=== PATIENT | female | born 1940 | race Caucasian/White ===

== ENCOUNTER 2020-09-07 13:29 | Outpatient (REF) | payer MEDICARE, SELFPAY | END 2020-09-07 13:30 | disposition home or self-care (01) | LOC: HO.HMGCLDS 13:29 | PROVIDERS: PCP Internal Medicine; Visit Provider Internal Medicine | DX: Z20.828 Contact with and (suspected) exposure to other viral communicable diseases (principal) | CPT/HCPCS: C9803; U0003 ==

== ENCOUNTER 2020-10-16 10:04 | Outpatient (REF) | payer MEDICARE, SELFPAY ==
[2020-10-16 11:25] LABS: Estimated Average Glucose 143 mg/dL; Hemoglobin A1c % 6.6 %
[2020-10-16 11:52] LABS: Anion Gap 16 (12-20); Blood Urea Nitrogen 40 mg/dL (9-16); Calcium 9.2 mg/dL (8.4-10.2); Carbon Dioxide 17 mmol/L (22-29); Chloride 113 mmol/L (96-108); Estimated Glomerular Filt Rate 34; Glucose Random 147 mg/dL (60-115); Sodium 141 mmol/L (135-145)
[2020-10-16 11:56] LABS: Creatinine Urine 57.08 mg/dL; Microalbum/Creatinine Ratio Ur 105.1 ug/mg cr
[2020-10-17 06:33] LABS: LDL Cholesterol Direct 94 mg/dL (<100)
== END 2020-10-16 10:05 | disposition home or self-care (01) ==
LOC: HO.HMGCLDS 10:04
PROVIDERS: PCP Internal Medicine; Visit Provider Internal Medicine
DX: E13.9 Other specified diabetes mellitus without complications (principal); N28.9 Disorder of kidney and ureter, unspecified; M19.90 Unspecified osteoarthritis, unspecified site
CPT/HCPCS: 80048; 82043; 83036; 83721

== ENCOUNTER 2021-02-12 10:58 | Outpatient (REF) | payer MEDICARE, SELFPAY ==
[2021-02-12 14:03] LABS: Hemoglobin 11.2 g/dl (12.0-16.0)
[2021-02-12 14:09] LABS: Estimated Average Glucose 131 mg/dL; Hemoglobin A1c % 6.2 %
[2021-02-12 14:31] LABS: Alanine Aminotransferase 12 U/L (0-31); Albumin Level 4.2 g/dL (3.5-5.0); Alkaline Phosphatase 70 U/L (39-117); Anion Gap 14 (12-20); Aspartate Amino Transferase 12 U/L (5-31); Bilirubin Total 0.5 mg/dL (0.0-1.0); Blood Urea Nitrogen 45 mg/dL (9-16); Calcium 9.1 mg/dL (8.4-10.2); Carbon Dioxide 17 mmol/L (22-29); Chloride 115 mmol/L (96-108); Estimated Glomerular Filt Rate 30; Glucose Random 131 mg/dL (60-115); Sodium 141 mmol/L (135-145); Total Protein 7.3 g/dL (6.5-8.0)
== END 2021-02-12 10:59 | disposition home or self-care (01) ==
LOC: HO.HMGCLDS 10:58
PROVIDERS: PCP Internal Medicine; Visit Provider Internal Medicine
DX: F41.1 Generalized anxiety disorder (principal); E13.9 Other specified diabetes mellitus without complications; I10 Essential (primary) hypertension; N28.9 Disorder of kidney and ureter, unspecified
CPT/HCPCS: 36415; 80053; 83036; 85014; 85018

== ENCOUNTER 2021-04-05 14:55 | Outpatient (REF) | payer MEDICARE, SELFPAY ==
--- NOTE | ~2021-04-05 | US_ITS ---
EXAMINATION: US VENOUS ULTRASOUND WITH DOPPLER LOWER EXTREMITY, RIGHT CLINICAL INFORMATION: Pain and right leg COMPARISON: None TECHNIQUE: Ultrasound of the deep veins is performed from the hip to the calf with compression sonography and color and pulse Doppler assessment. Spectral analysis with color-flow imaging is performed. FINDINGS: There is normal venous compression and respiratory variation and augmented flow. The visualized common femoral vein, superficial femoral vein, profunda femoral vein, popliteal vein, and the trifurcation region shows no evidence of deep venous thrombosis. There is no significant popliteal fossa cyst. If the patient's symptoms persist, followup ultrasound in 5 days 7 days might be of value to exclude proximal propagation from a non-visualized calf vein. US/US venous duplex LE RT IMPRESSION: No DVT demonstrated in the right lower extremity.
== END 2021-04-05 14:56 | disposition home or self-care (01) ==
LOC: HO.HMGCX 14:55
PROVIDERS: PCP Internal Medicine; Visit Provider Nurse Practitioner Family
DX: M79.604 Pain in right leg (principal)
CPT/HCPCS: 93971

== ENCOUNTER 2021-04-09 12:59 | Outpatient (REF) | payer MEDICARE, SELFPAY ==
--- NOTE | ~2021-04-09 | XR_ITS ---
EXAMINATION: XR HIP, RIGHT CLINICAL INFORMATION: Right hip pain. COMPARISON: Pelvic CT scan dated 12/10/2013. TECHNIQUE: Two views of the right hip. FINDINGS: Mild right hip degenerative joint changes are seen. There is no acute fracture or dislocation. The soft tissues are unremarkable. Coarse calcifications are again seen overlying the pelvis without significant change. XR/XR hip RT min 2V IMPRESSION: Mild right hip osteoarthritis. No acute abnormality.
== END 2021-04-09 13:00 | disposition home or self-care (01) ==
LOC: HO.HMGCX 12:59
PROVIDERS: PCP Internal Medicine; Visit Provider Internal Medicine
DX: M25.551 Pain in right hip (principal)
CPT/HCPCS: 73502

== ENCOUNTER 2021-04-22 08:15 | Outpatient (REF) | payer MEDICARE, SELFPAY ==
--- NOTE | ~2021-04-22 | XR_ITS ---
EXAMINATION: XR PELVIS CLINICAL INFORMATION: Pain COMPARISON: Right hip radiograph from 04/09/2021 TECHNIQUE: AP view of the pelvis. FINDINGS: No acute visible fracture or dislocation. Degenerative changes of the bilateral femoral acetabular joints with joint space narrowing and periarticular osteophyte formation. Degenerative changes along the pubic symphysis and inferior aspect of the right sacroiliac joints. Degenerative changes along the lumbosacral junction. Joint spaces and alignment are otherwise maintained. Visualized bowel gas is unremarkable. Coarse calcification within the mid pelvis measuring 3.1 cm likely represents a calcified uterine fibroid. Pelvic phleboliths are visualized. Soft tissues are unremarkable. XR/XR pelvis 1-2V IMPRESSION: 1. No acute visible fracture or dislocation. 2. Degenerative changes of the bilateral femoral acetabular joints.
== END 2021-04-22 08:16 | disposition home or self-care (01) ==
LOC: HO.HOSX 08:15
PROVIDERS: Visit Provider Orthopaedic Surgery
DX: M25.559 Pain in unspecified hip (principal)
CPT/HCPCS: 72170; 99202

== ENCOUNTER 2021-04-28 10:26 | Emergency (ER) | payer MEDICARE, SELFPAY ==
--- NOTE | ~2021-04-28 | NM_ITS ---
EXAMINATION: NM LUNG IMAGE PERFUSION CLINICAL INFORMATION: Elevated d-dimer. Chest pain. SOB. COMPARISON: Chest x-ray 04/28/2021 TECHNIQUE: Following intravenous administration of 35 mCi of 90 9M technetium and AA, imaging over both lungs are obtained multiple projections. No ventilation study was performed. FINDINGS: There is normal perfusion seen to all segments of both lungs without any segmental, subsegmental or nonsegmental defect. NM/NM pul perfusion IMPRESSION: Normal perfusion scan.
--- NOTE | ~2021-04-28 | XR_ITS ---
EXAMINATION: XR CHEST CLINICAL INFORMATION: Chest pain. 1 hour STAGE [employer] COMPARISON: Chest 12/10/2019 TECHNIQUE: Frontal view of the chest was obtained. FINDINGS: Both lungs are fairly well-expanded and clear acute process. Heart size and pulmonary vascularity is normal. No gross bony abnormality seen. XR/XR chest 1V IMPRESSION: Unremarkable chest exam.
[2021-04-28 10:34] VITALS: BP 166/64; BP 167/71; PULSE 85; PULSE 90; RESP 18; TEMP 36.7; O2SAT 97; O2SAT 98; BMI 31.6
--- NOTE | 2021-04-28 10:42 | ECG_ITS ---
Test Reason : CHEST PAIN Blood Pressure : / mmHG Vent. Rate : 083 BPM Atrial Rate : 083 BPM P-R Int : 224 ms QRS Dur : 082 ms QT Int : 394 ms P-R-T Axes : 057 -03 040 degrees QTc Int : 462 ms Sinus rhythm with 1st degree A-V block with Premature supraventricular complexes Otherwise normal ECG When compared with ECG of 12-JAN-2015 11:44, Premature supraventricular complexes are now Present MD interval has increased Referred By: Ciera Johnson Electronically Signed By:VANGIE OLIVARES MD
[2021-04-28 11:05] VITALS: BP 138/53; PULSE 70; RESP 19; TEMP 36.8; O2SAT 99
[2021-04-28 11:15] LABS: MANUAL DIFF FLAG NO
[2021-04-28 11:21] LABS: Basophils Percent Auto 0.4 % (0-2); Eosinophils Absolute Auto 0.2 X10*3/uL (0.0-0.4); Eosinophils Percent Auto 4.1 % (0-4); Hematocrit 30.8 % (37-47); Hemoglobin 9.7 g/dl (12.0-16.0); Imm Gran Abs Auto 0.02 X10*3/uL (0.00-0.03); Imm Gran Pct Auto 0.4 % (0.0-0.4); Lymphocytes Absolute Auto 1.4 X10*3/uL (1.2-4.9); Lymphocytes Percent Auto 27.5 % (20-40); Mean Corpuscular HGB Conc 31.5 g/dl (31.0-35.0); Mean Corpuscular Hemoglobin 33.6 pg (27.0-33.0); Mean Corpuscular Volume 106.6 fL (80-98); Mean Platelet Volume 9.5 fL (9.4-12.3); Monocytes Absolute Auto 0.5 X10*3/uL (0.1-1.2); Neutrophils Absolute Auto 2.8 X10*3/uL (2.0-8.3); Neutrophils Percent Auto 56.6 % (45-73); Platelet Count 190 X10*3/uL (160-400); Red Blood Count 2.89 X10*6/uL (4.20-5.50); White Blood Count 4.9 X10*3/uL (4.8-10.8)
[2021-04-28 11:34] LABS: COVID-19 Test Negative (Negative)
[2021-04-28 11:54] LABS: Prothrombin Time 12.1 SEC (10.8-13.0)
[2021-04-28 11:55] LABS: Magnesium 1.8 mg/dL (1.6-2.6)
[2021-04-28 11:58] LABS: Alanine Aminotransferase 11 U/L (0-31); Albumin Level 3.7 g/dL (3.5-5.0); Alkaline Phosphatase 67 U/L (39-117); Aspartate Amino Transferase 11 U/L (5-31); B Type Natriuretic Peptide 186 pg/mL (<100); Bilirubin Total 0.3 mg/dL (0.0-1.0); Blood Urea Nitrogen 40 mg/dL (9-16); Calcium 8.7 mg/dL (8.4-10.2); Estimated Glomerular Filt Rate 26; Glucose Random 148 mg/dL (60-115); Total Protein 6.1 g/dL (6.5-8.0)
[2021-04-28 12:07] LABS: Anion Gap 12 (12-20); Carbon Dioxide 19 mmol/L (22-29); Chloride 116 mmol/L (96-108); Potassium 5.1 mmol/L (3.3-5.1); Sodium 142 mmol/L (135-145)
--- NOTE | 2021-04-28 12:30 | ED_ITS ---
HPI - Chest Pain General Chief Complaint: Chest Pain Stated Complaint: CHEST PAIN X2DAYS Time Seen by Provider: 04/28/21 10:33 Source: patient Mode of arrival: ambulatory Limitations: no limitations History of Present Illness HPI narrative: 80-year-old female with a past medical history of diabetes type 2, central hypertension, chronic kidney disease stage 3 due to hypertension, hyperparathyroidism due to renal insufficiency, and anemia presenting to the ED with complaints of sudden onset of chest pain when she was having a coughing fit that started approximately 09:00 and lasted approximately 10 minutes then resolved then 20- 30 minutes after that she had a 2nd episode of right-sided chest pain that again lasted approximately 10 minutes. She reports associated dyspnea on exertion orthopnea. Reports that she was treated for bronchitis with a Z-Alvarez approximately 3 weeks ago and completed the antibiotics and reports she was feeling better up until today when she started coughing and felt like she had sputum in her chest/ throat therefore she went to a coughing fit and this is when the chest pain began. Patient denies any dizziness, headaches, changes in vision, nausea /vomiting, palpitations, abdominal pain, black or bloody stools, lower extremity edema, recent travel or sick contacts or any other symptoms complaints or concerns at this time. MD complaint: chest pain Pertinent past history: other ( See above) Onset (ago): minute(s) ( started at 09:00 prior to arrival) Timing of current episode: episodic and now resolved Prior episodes: No Onset: other ( while coughing) Pain location: right chest Pain radiation: none Severity: moderate Quality: aching Relieving factors: nothing Exacerbating factors: other ( coughing) Context: recent illness ( approximately 3 weeks ago see above) Associated symptoms: dyspnea and cough Treatment prior to arrival: none Risk Factors Coronary artery disease risk factors: diabetes and hypertension Thoracic aortic dissection risk factors: none Related Data On Oral Contraceptives: No Home Medications Medication Instructions Recorded Confirmed escitalopram oxalate 20 mg tablet 20 mg PO DAILY 10/16/20 04/09/21 lisinopril 5 mg tablet 5 mg PO DAILY 10/16/20 04/09/21 Previous Rx's Medication Instructions Recorded ondansetron HCl 4 mg tablet 4 mg PO Q8H PRN 30 Days #30 tab 01/05/21 albuterol sulfate 90 mcg/actuation 1 inh INHALATION QID PRN 30 Days 02/12/21 aerosol inhaler #18 g allopurinol 100 mg tablet 100 mg PO DAILY #90 tab 03/30/21 atenolol 25 mg tablet 25 mg PO DAILY #90 tab 03/30/21 azithromycin 500 mg tablet 500 mg PO DAILY 5 Days #5 tab 04/01/21 glipizide 5 mg tablet 5 mg PO BID #180 tab 04/01/21 oxycodone-acetaminophen 5 mg-325 1 tab PO BID PRN 15 Days #30 tab 04/14/21 mg tablet albuterol sulfate 0.63 mg INHALATION QID PRN #75 ml 04/28/21 codeine-guaifenesin [Guaifenesin 5 ml PO Q6H PRN #120 ml 04/28/21 AC] docusate sodium [Colace] 100 mg PO BID PRN #14 cap 04/28/21 doxycycline monohydrate 100 mg PO BID 10 Days #20 cap 04/28/21 ferrous sulfate 325 mg PO DAILY #30 tab 04/28/21 oxycodone 5 mg PO BID PRN #10 tab 04/28/21 sennosides [Chocolate Laxative] 7.5 mg PO DAILY 5 Days #3 tab 04/28/21 Allergies Allergy/AdvReac Type Severity Reaction Status Date / Time Penicillins [PCN] Allergy Mild RASH Verified 04/22/21 11:04 penicillin V Allergy Unknown not Verified 04/22/21 11:04 effective PCN Allergy Unknown ineffective Uncoded 04/22/21 11:04 Review of Systems Review of Systems: Constitutional : No Weight loss, No Fever, No Chills, No Night Sweats, No Fatigue, No Malaise ENT/Mouth : No Hearing loss, No Ear Pain, No Nasal Congestion, No Sinus Pain, No Hoarseness, No sore throat, No Rhinorrhea, No Swallowing Difficulty Eyes: No Eye Pain, No Swelling, No Redness, No Foreign Body, No Discharge, No Vi london Changes Cardiovascular : Positive Chest Pain, Positive SOB, Positive Dyspnea on Exertion, Positive Orthopnea, No Edema, No extremity swelling, No Palpitations Respiratory : Positive Cough, No Sputum, No Wheezing Gastrointestinal : No Nausea, No Vomiting, No Diarrhea, No abdominal Pain, No Hematochezia, No Melena Genitourinary : No irregular bleeding, No Dysuria, No Urinary Frequency, No Hematuria, No Urinary Incontinence, No Urgency, No Flank Pain, No Urinary Flow Changes, No Hesitancy Musculoskeletal : No joint pain, No Myalgias, No Joint Swelling Skin : No Skin Lesions, No rash Neuro : No Weakness, No Numbness, No Paresthesias, No Loss of Consciousness, No Dizziness, No Headache Psych : No Anxiety/Panic, No Depression, No SI/HI/AH/VH Heme/Lymph: No Bruising, No Bleeding,No Lymphadenopathy Endocrine : No Polyuria, No Polydipsia, No Temperature Intolerance Yes all other systems are reviewed and are negative FOR[facility]LY [facility] Past Medical History Attestation statement: The following information was validated with the patient. 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 Nephropathy Surgical History History of cholecystectomy History of hysterectomy History of left cataract surgery History of tonsillectomy Social History Social History Alcohol intake: current Alcohol intake frequency: does not drink Patient Tobacco Use Status: Never used Tobacco Smoked in Last 30 Days: No Use of substances other than those prescribed or required for medical reasons: No Advance Directives: Yes Advance Directives Information Provided: Yes Advance Directives on File: No Current occupational status: retired Physical Exam Vital Signs: Vital Signs: Last Vital Signs Temp 98.3 F 04/28/21 11:05 Pulse 70 04/28/21 11:05 Resp 19 04/28/21 11:05 BP 138/53 L 04/28/21 11:05 Pulse Ox 99 04/28/21 11:05 Body Mass Index 31.6 vital signs have been reviewed as normal and appeared to be correct. Blood pressure hypertensive 166/64. Heart rate normal. Respiration rate normal. Temperature normal. Oxygen saturation normal. Appearance: Alert. Oriented X3. No acute distress. Head: Normal external exam. Normocephalic. Atraumatic. Eyes: PERRLA. EOMI. Conjunctiva and sclera normal. Eyelids normal. ENT: Pharynx normal. Uvula midline. Moist mucous membranes. No trismus noted. No drooling noted. No muffled voice noted. Neck: Normal inspection. Neck supple. FROM. No adenopathy. Thyroid Normal. No meningeal signs. No neck mass noted. CVS: Normal heart rate and rhythm. Heart sound normal. Pulses normal throughout. No murmurs/rales/gallops. Respiratory: No respiratory distress. Painless inspiration. Breath sounds normal. No wheezes/rales/rhonchi noted. Chest nontender. No accessory muscle usage noted or decreased air movement noted. Abdomen: Soft and nontender. Bowel sounds normal in all 4 quadrants. No distention noted. No organomegaly noted. No visible injury noted. Back: Full range of motion noted. No rashes/lesion/induration/fluctuance or signs of infection noted. Skin: Skin warm and dry. Normal skin color. Normal skin turgor. No rashes/lesions/lacerations noted. Extremities: No lower extremity edema. Extremities exhibit normal range of motion. Extremities nontender. Neuro: Oriented X 3. No motor deficit. No sensory deficit. Reflexes normal. Normal steady gait. No focal neuro deficits noted. Vascular: + radial pulses/+ 2 distal pedal pulses/+2 dorsalis pedis b/l. Normal cap refill. No cyanosis noted to upper extremity nails and lower extremity toes nails. Course Course Course Narrative: 10:40am - 80-year-old female with a past medical history of diabetes type 2, central hypertension, chronic kidney disease stage 3 due to hypertension, hyperparathyroidism due to renal insufficiency, and anemia presenting to the ED with complaints of sudden onset of chest pain when she was having a coughing fit that started approximately 09:00 and lasted approximately 10 minutes then resolved then 20- 30 minutes after that she had a 2nd episode of right-sided chest pain that again lasted approximately 10 minutes. She reports associated dyspnea on exertion orthopnea. Plan: Labs, EKG, chest x-ray, COVID swab then re-evaluate. Reevaluation(s) Reevaluation #1: - Labs return in patient with anemia worse when compared to prior she reports that she stop taking her iron supplements and I performed a stool occult which was negative. Patient's D-dimer was 521 therefore she had a V/Q scan and was negative for PE. Patient has a baseline elevated BUN and creatinine similar compared to prior. She had negative delta troponin. UA within normal limits no evidence of UTI. COVID swab negative. Chest x-ray negative for pneumonia or any other acute processes. EKG sinus rhythm with first-degree AV block with premature supraventricular complexes with ventricular rate of 83 no acute ischemic changes were noted. - Therefore patient most likely bronchitis and anemia will DC home with antibiotics and symptomatic treatment along with instructions to follow-up with PCP/ and to return if any new or worsening symptoms. Patient understands agrees with this plan. Time: 15:58 MDM - Chest Pain Medical Records Data Attestation: I reviewed the patient's medical records. Lab Data Attestation: I reviewed the patient's lab results. Result diagrams: 04/28/21 11:03 04/28/21 11:04 Labs: Lab Results 04/28/21 04/28/21 04/28/21 Range/Units 11:03 11:04 11:04 WBC 4.9 (4.8-10.8) X10*3/uL RBC 2.89 L (4.20-5.50) X10*6/uL Hgb 9.7 L (12.0-16.0) g/dl Hct 30.8 L (37-47) % MCV 106.6 H (80-98) fL MCH 33.6 H (27.0-33.0) pg MCHC 31.5 (31.0-35.0) g/dl RDW 14.0 (11.0-16.0) % Plt Count 190 (160-400) X10*3/uL MPV 9.5 (9.4-12.3) fL Immature Gran % (Auto) 0.4 (0.0-0.4) % Neut % (Auto) 56.6 (45-73) % Lymph % (Auto) 27.5 (20-40) % [place] % (Auto) 11.0 (2-11) % Eos % (Auto) 4.1 H (0-4) % Baso % (Auto) 0.4 (0-2) % Lymph # (Auto) 1.4 (1.2-4.9) X10*3/uL [place] # (Auto) 0.5 (0.1-1.2) X10*3/uL Eos # (Auto) 0.2 (0.0-0.4) X10*3/uL Baso # (Auto) 0.0 (0.0-0.2) X10*3/uL Abs Immat Gran (auto) 0.02 (0.00-0.03) X10*3/uL Absolute Neuts (auto) 2.8 (2.0-8.3) X10*3/uL Absolute Nucleated RBC 0.000 (0.0-0.012) X10*3/uL Nucleated RBC % (auto) 0.0 (0.0-0.2) /100WBC PT (10.8-13.0) SEC INR (0.9-1.1) D-Dimer NG/ML Sodium 142 (135-145) mmol/L Potassium 5.1 (3.3-5.1) mmol/L Chloride 116 H (96-108) mmol/L Carbon Dioxide 19 L (22-29) mmol/L Anion Gap 12 (12-20) BUN 40 H (9-16) mg/dL Creatinine 1.84 H (0.5-1.4) mg/dL Estim Creat Clear Calc 25.0 Estimated GFR 26 Random Glucose 148 H (60-115) mg/dL Calcium 8.7 (8.4-10.2) mg/dL Magnesium 1.8 (1.6-2.6) mg/dL Total Bilirubin 0.3 (0.0-1.0) mg/dL AST 11 (5-31) U/L ALT 11 (0-31) U/L Alkaline Phosphatase 67 (39-117) U/L Troponin I High Sens (<3.5-17.0) ng/L B-Natriuretic Peptide (<100) pg/mL Total Protein 6.1 L (6.5-8.0) g/dL Albumin 3.7 (3.5-5.0) g/dL Urine Color Urine Appearance Urine pH (5.0-8.0) Ur Specific [place] (1.005-1.025) Urine Protein (NEG-TRACE) MG/DL Urine Glucose (UA) (NEG) MG/DL Urine Ketones (NEG) MG/DL Urine Blood (NEG) Urine Nitrite (NEG) Ur Leukocyte Esterase (NEG) Stool Occult Blood (NEGATIVE) COVID-19 (JIMMIE) (Negative) COVID-19 Clin Com 04/28/21 04/28/21 04/28/21 Range/Units 11:04 11:04 11:36 WBC (4.8-10.8) X10*3/uL RBC (4.20-5.50) X10*6/uL Hgb (12.0-16.0) g/dl Hct (37-47) % MCV (80-98) fL MCH (27.0-33.0) pg MCHC (31.0-35.0) g/dl RDW (11.0-16.0) % Plt Count (160-400) X10*3/uL MPV (9.4-12.3) fL Immature Gran % (Auto) (0.0-0.4) % Neut % (Auto) (45-73) % Lymph % (Auto) (20-40) % [place] % (Auto) (2-11) % Eos % (Auto) (0-4) % Baso % (Auto) (0-2) % Lymph # (Auto) (1.2-4.9) X10*3/uL [place] # (Auto) (0.1-1.2) X10*3/uL Eos # (Auto) (0.0-0.4) X10*3/uL Baso # (Auto) (0.0-0.2) X10*3/uL Abs Immat Gran (auto) (0.00-0.03) X10*3/uL Absolute Neuts (auto) (2.0-8.3) X10*3/uL Absolute Nucleated RBC (0.0-0.012) X10*3/uL Nucleated RBC % (auto) (0.0-0.2) /100WBC PT 12.1 (10.8-13.0) SEC INR 1.0 (0.9-1.1) D-Dimer 521 NG/ML Sodium (135-145) mmol/L Potassium (3.3-5.1) mmol/L Chloride (96-108) mmol/L Carbon Dioxide (22-29) mmol/L Anion Gap (12-20) BUN (9-16) mg/dL Creatinine (0.5-1.4) mg/dL Estim Creat Clear Calc Estimated GFR Random Glucose (60-115) mg/dL Calcium (8.4-10.2) mg/dL Magnesium (1.6-2.6) mg/dL Total Bilirubin (0.0-1.0) mg/dL AST (5-31) U/L ALT (0-31) U/L Alkaline Phosphatase (39-117) U/L Troponin I High Sens 6.0 (<3.5-17.0) ng/L B-Natriuretic Peptide 186 H (<100) pg/mL Total Protein (6.5-8.0) g/dL Albumin (3.5-5.0) g/dL Urine Color Urine Appearance Urine pH (5.0-8.0) Ur Specific [place] (1.005-1.025) Urine Protein (NEG-TRACE) MG/DL Urine Glucose (UA) (NEG) MG/DL Urine Ketones (NEG) MG/DL Urine Blood (NEG) Urine Nitrite (NEG) Ur Leukocyte Esterase (NEG) Stool Occult Blood (NEGATIVE) COVID-19 (JIMMIE) Negative (Negative) COVID-19 Clin Com See Note 04/28/21 04/28/21 04/28/21 Range/Units 12:49 14:28 14:35 WBC (4.8-10.8) X10*3/uL RBC (4.20-5.50) X10*6/uL Hgb (12.0-16.0) g/dl Hct (37-47) % MCV (80-98) fL MCH (27.0-33.0) pg MCHC (31.0-35.0) g/dl RDW (11.0-16.0) % Plt Count (160-400) X10*3/uL MPV (9.4-12.3) fL Immature Gran % (Auto) (0.0-0.4) % Neut % (Auto) (45-73) % Lymph % (Auto) (20-40) % [place] % (Auto) (2-11) % Eos % (Auto) (0-4) % Baso % (Auto) (0-2) % Lymph # (Auto) (1.2-4.9) X10*3/uL [place] # (Auto) (0.1-1.2) X10*3/uL Eos # (Auto) (0.0-0.4) X10*3/uL Baso # (Auto) (0.0-0.2) X10*3/uL Abs Immat Gran (auto) (0.00-0.03) X10*3/uL Absolute Neuts (auto) (2.0-8.3) X10*3/uL Absolute Nucleated RBC (0.0-0.012) X10*3/uL Nucleated RBC % (auto) (0.0-0.2) /100WBC PT (10.8-13.0) SEC INR (0.9-1.1) D-Dimer NG/ML Sodium (135-145) mmol/L Potassium (3.3-5.1) mmol/L Chloride (96-108) mmol/L Carbon Dioxide (22-29) mmol/L Anion Gap (12-20) BUN (9-16) mg/dL Creatinine (0.5-1.4) mg/dL Estim Creat Clear Calc Estimated GFR Random Glucose (60-115) mg/dL Calcium (8.4-10.2) mg/dL Magnesium (1.6-2.6) mg/dL Total Bilirubin (0.0-1.0) mg/dL AST (5-31) U/L ALT (0-31) U/L Alkaline Phosphatase (39-117) U/L Troponin I High Sens 6.9 (<3.5-17.0) ng/L B-Natriuretic Peptide (<100) pg/mL Total Protein (6.5-8.0) g/dL Albumin (3.5-5.0) g/dL Urine Color YELLOW Urine Appearance CLEAR Urine pH 6.0 (5.0-8.0) Ur Specific [place] <= 1.005 (1.005-1.025) Urine Protein NEG (NEG-TRACE) MG/DL Urine Glucose (UA) NEG (NEG) MG/DL Urine Ketones NEG (NEG) MG/DL Urine Blood NEG (NEG) Urine Nitrite NEG (NEG) Ur Leukocyte Esterase NEG (NEG) Stool Occult Blood NEGATIVE (NEGATIVE) COVID-19 (JIMMIE) (Negative) COVID-19 Clin Com Imaging Data Chest x-ray: Attestation: I personally reviewed and interpreted this imaging study as follows: Radiologist's impression: FINDINGS: Both lungs are fairly well-expanded and clear acute process. Heart size and pulmonary vascularity is normal. No gross bony abnormality seen. XR/XR chest 1V IMPRESSION: Unremarkable chest exam. V/Q scan: Attestation: I personally reviewed and interpreted this imaging study as follows: Radiologist's impression: FINDINGS: There is normal perfusion seen to all segments of both lungs without any segmental, subsegmental or nonsegmental defect. NM/NM pul perfusion IMPRESSION: Normal perfusion scan. ECG Data ECG #1: Attestation: I personally reviewed and interpreted this ECG as follows: ECG interpretation date: 04/28/21 ECG interpretation time: 10:48 Interpretation: Sinus rhythm with first-degree AV block with premature supraventricular complexes with a ventricular rate of 83 no acute ischemic changes are noted. Similar compared to prior EKG 01/12/2015. Critical Care Time Critical Care Time Critical Care Time: Yes Total Critical Care Time: 60 Attestation: I personally attest to this time spent taking care of the patient Discharge Plan Discharge Clinical Impression: Bronchitis, Anemia Patient Disposition: Home, Self-Care Instructions: Acute Bronchitis (ED), Anemia (ED) Prescriptions: New docusate sodium [Colace] 100 mg capsule 100 mg PO BID PRN (Reason: Constipation) Qty: 14 RF: 0 albuterol sulfate 0.63 mg/3 mL solution for nebulization 0.63 mg inhalation QID PRN (Reason: shortness of breath or wheezing) Qty: 75 RF: 0 Chocolate Laxative 15 mg tablet,chewable 7.5 mg PO DAILY 5 Days Qty: 3 RF: 0 doxycycline monohydrate 100 mg capsule 100 mg PO BID 10 Days Qty: 20 RF: 0 codeine-guaifenesin [Guaifenesin AC] 10-100 mg/5 mL liquid 5 ml PO Q6H PRN (Reason: cold symptoms) Qty: 120 RF: 0 oxycodone 5 mg tablet 5 mg PO BID PRN (Reason: pain) Qty: 10 RF: 0 ferrous sulfate 325 mg (65 mg iron) tablet 325 mg PO DAILY Qty: 30 RF: 0 No Action ondansetron HCl [Zofran] 4 mg tablet 4 mg PO Q8H PRN (Reason: nausea and vomiting) 30 Days Qty: 30 RF: 0 atenolol 25 mg tablet 25 mg PO DAILY Qty: 90 RF: 0 allopurinol 100 mg tablet 100 mg PO DAILY Qty: 90 RF: 0 glipizide 5 mg tablet 5 mg PO BID Qty: 180 RF: 1 oxycodone-acetaminophen [Percocet] 5-325 mg tablet 1 tab PO BID PRN (Reason: pain) 15 Days Qty: 30 RF: 0 escitalopram oxalate 20 mg tablet 20 mg PO DAILY RF: 0 lisinopril 5 mg tablet 5 mg PO DAILY RF: 0 albuterol sulfate [ProAir HFA] 90 mcg/actuation HFA aerosol inhaler 1 inh inhalation QID PRN (Reason: shortness of breath or wheezing) 30 Days Qty: 18 RF: 2 azithromycin 500 mg tablet 500 mg PO DAILY 5 Days Qty: 5 RF: 0 Referrals: León Cnanon MD [Primary Care Provider] - 2 days Print Language: [place]
[2021-04-28 12:58] LABS: Glucose Urine UA NEG (NEG); Leukocyte Esterase Urine NEG (NEG); Nitrite Urine NEG (NEG); Specific Gravity - Urine <= 1.005 (1.005-1.025); Urine Blood NEG (NEG); Urine Ketones NEG (NEG); Urine Protein NEG (NEG-TRACE)
[2021-04-28 13:00] LABS: D Dimer 521 NG/ML
[2021-04-28 13:00] LABS: Appearance Urine CLEAR; Color Urine YELLOW
[2021-04-28 14:41] LABS: OBS Int Ctl Valid YES; OBS1 NEGATIVE (NEGATIVE)
[2021-04-28 15:17] LABS: Troponin-I High Sensitivity 6.9 ng/L (<3.5-17.0)
[2021-04-28 15:49] VITALS: BP 147/68; PULSE 61; RESP 14; TEMP 36.7; O2SAT 97
== END 2021-04-28 16:23 | disposition home or self-care (01) ==
PROVIDERS: Physician Assistant Medical; Emergency Provider Emergency Medicine; PCP Internal Medicine
DX: J40 Bronchitis, not specified as acute or chronic (principal); D64.9 Anemia, unspecified; R07.9 Chest pain, unspecified; R06.02 Shortness of breath; R06.01 Orthopnea; Z20.822 Contact with and (suspected) exposure to COVID-19; E13.22 Other specified diabetes mellitus with diabetic chronic kidney disease; I12.9 Hypertensive chronic kidney disease with stage 1 through stage 4 chronic kidney disease, or unspecified chronic kidney disease; N18.30 Chronic kidney disease, stage 3 unspecified; Z79.84 Long term (current) use of oral hypoglycemic drugs; Z79.899 Other long term (current) drug therapy
CPT/HCPCS: 36415; 71045; 78580; 80053; 81003; 82272; 83735; 83880; 84484; 85025; 85379; 85610; 87635; 93005; 99285; 99291; A9540

== ENCOUNTER 2021-06-07 09:37 | Outpatient (REF) | payer MEDICARE, OTHER, SELFPAY ==
[2021-06-07 11:17] LABS: MANUAL DIFF FLAG NO
[2021-06-07 11:32] LABS: Basophils Percent Auto 0.6 % (0-2); Eosinophils Absolute Auto 0.2 X10*3/uL (0.0-0.4); Eosinophils Percent Auto 3.4 % (0-4); Hematocrit 32.8 % (37-47); Hemoglobin 10.1 g/dl (12.0-16.0); Imm Gran Abs Auto 0.03 X10*3/uL (0.00-0.03); Imm Gran Pct Auto 0.6 % (0.0-0.4); Lymphocytes Absolute Auto 1.9 X10*3/uL (1.2-4.9); Lymphocytes Percent Auto 35.6 % (20-40); Mean Corpuscular HGB Conc 30.8 g/dl (31.0-35.0); Mean Corpuscular Hemoglobin 32.9 pg (27.0-33.0); Mean Corpuscular Volume 106.8 fL (80-98); Mean Platelet Volume 9.9 fL (9.4-12.3); Monocytes Absolute Auto 0.5 X10*3/uL (0.1-1.2); Monocytes Percent Auto 9.8 % (2-11); Neutrophils Absolute Auto 2.7 X10*3/uL (2.0-8.3); Platelet Count 266 X10*3/uL (160-400); Red Blood Count 3.07 X10*6/uL (4.20-5.50); Red Cell Distribution Width 13.5 % (11.0-16.0); White Blood Count 5.3 X10*3/uL (4.8-10.8)
[2021-06-07 11:35] LABS: Estimated Average Glucose 140 mg/dL; Hemoglobin A1c % 6.5 %
[2021-06-07 12:31] LABS: Alanine Aminotransferase 10 U/L (0-31); Albumin Level 3.9 g/dL (3.5-5.0); Alkaline Phosphatase 62 U/L (39-117); Anion Gap 14 (12-20); Aspartate Amino Transferase 11 U/L (5-31); Bilirubin Total 0.2 mg/dL (0.0-1.0); Blood Urea Nitrogen 43 mg/dL (9-16); Calcium 9.2 mg/dL (8.4-10.2); Carbon Dioxide 20 mmol/L (22-29); Chloride 116 mmol/L (96-108); Estimated Glomerular Filt Rate 31; Glucose Random 140 mg/dL (60-115); Potassium 5.5 mmol/L (3.3-5.1); Sodium 144 mmol/L (135-145); Total Protein 6.6 g/dL (6.5-8.0)
== END 2021-06-07 09:38 | disposition home or self-care (01) ==
LOC: HO.HMGCLDS 09:37
PROVIDERS: PCP Internal Medicine; Visit Provider Internal Medicine
DX: Z00.01 Encounter for general adult medical examination with abnormal findings (principal); E13.9 Other specified diabetes mellitus without complications; F41.1 Generalized anxiety disorder; I10 Essential (primary) hypertension; N28.9 Disorder of kidney and ureter, unspecified
CPT/HCPCS: 36415; 80053; 83036; 85025

== ENCOUNTER 2021-06-16 11:00 | Outpatient (RCR) | payer MEDICARE, OTHER, SELFPAY ==
--- NOTE | 2021-05-11 13:32 | MHC.PT.EP ---
[facility] [place] Office [place] [facility] [place] Office [address] Elmer Haynes [address] [phone] F: [phone] F: [phone] F: [phone] F: [phone] Physical Therapy Plan of Care Date of Evaluation: Date of Surgery: none Diagnosis: right hip pain Assessment: The patient arrived reporting right hip pain since falling 3 weeks ago. X-rays negative. Pt does not seem to have a clear directional preference for her lumbar spine. Pt had a sacral torsion and an innominant. Both were addressed with MET. However, pt is limited with her mobility due to pain. Most therapeutic benefit noted with gentle PA mobs on right sacral border. Pt given pelvic stability exercises to stabilize once we mobilized her sacrum. Pt has excellent rehab potential. Pt also reports total urinary incontinence at times which I believe could improve with pelvic floor PT as well including education on PF activation, and lifestyle changes, and improved bladder habits. Frequency and Duration: The patient will be seen 2x/week x 4 weeks. Short Term Goals: 1. The patient to be able to negotiate community obstacles such as curbs, ramps and open spaces without LOB for 100 feet. 2. Pt to have pain free bed mobility. 3. Pt to return to all community obstacles and walk community distances without pain. Half-Way Goals: 1. Pt to have pain free bed mobility. 2. Pt to return to all community obstacles and walk community distances without pain Treatment Plan: Modalities to reduce pain, spasms and effusion. Manual therapy to restore motion and function. Therapeutic exercise to improve strength and flexibility. Neuromuscular re-education for posture and balance. Therapeutic activities to return to functional activities of daily living. Electronically signed by: Ariella Munoz PT DPT Please sign and return to therapist. Thank you for your referral.
== END 2021-06-30 08:00 | disposition home or self-care (01) ==
LOC: HO.PT 11:00
PROVIDERS: PCP Internal Medicine; Visit Provider Orthopaedic Surgery
DX: M25.551 Pain in right hip (principal)
CPT/HCPCS: 97110; 97112; 97140; 97162; 97530

== ENCOUNTER 2021-08-13 08:44 | Outpatient (REF) | payer MEDICARE, OTHER, SELFPAY ==
--- NOTE | ~2021-08-13 | XR_ITS ---
EXAMINATION: XR LUMBOSACRAL SPINE CLINICAL INFORMATION: Radiculopathy. COMPARISON: None. TECHNIQUE: 3 views of the lumbosacral spine. FINDINGS: Degenerative changes are present in the lumbosacral spine predominantly from L3 through S1. There is disc space narrowing at L3-L4 and L4-L5. There is grade 1 anterolisthesis of L4 upon L5. Marked disc space narrowing, sclerosis and osteophytes are present at L5-S1. Calcified uterine fibroids are present. No bony destructive lesions or fractures seen. XR/XR lumbar spine 2-3V IMPRESSION: Degenerative changes predominantly from L3 through S1 with grade 1 anterolisthesis L4 upon L5.
== END 2021-08-13 08:45 | disposition home or self-care (01) ==
LOC: HO.HMGCX 08:44
PROVIDERS: PCP Internal Medicine; Visit Provider Internal Medicine
DX: M54.16 Radiculopathy, lumbar region (principal)
CPT/HCPCS: 72100

== ENCOUNTER 2021-09-07 09:10 | Outpatient (REF) | payer MEDICARE, OTHER, SELFPAY ==
[2021-09-07 11:48] LABS: MANUAL DIFF FLAG NO
[2021-09-07 12:00] LABS: Basophils Percent Auto 0.3 % (0-2); Eosinophils Absolute Auto 0.1 X10*3/uL (0.0-0.4); Eosinophils Percent Auto 1.7 % (0-4); Hematocrit 33.2 % (37.0-47.0); Hemoglobin 10.4 g/dl (12.0-16.0); Imm Gran Abs Auto 0.02 X10*3/uL (0.00-0.03); Imm Gran Pct Auto 0.3 % (0.0-0.4); Lymphocytes Absolute Auto 2.3 X10*3/uL (1.2-4.9); Lymphocytes Percent Auto 32.9 % (20-40); Mean Corpuscular HGB Conc 31.3 g/dl (31.0-35.0); Mean Corpuscular Hemoglobin 32.3 pg (27.0-33.0); Mean Corpuscular Volume 103.1 fL (80.0-98.0); Mean Platelet Volume 9.5 fL (9.4-12.3); Monocytes Absolute Auto 0.7 X10*3/uL (0.1-1.2); Monocytes Percent Auto 9.8 % (2-11); Neutrophils Absolute Auto 3.8 x10*3/uL (2.0-8.3); Platelet Count 227 X10*3/uL (160-400); Red Blood Count 3.22 X10*6/uL (4.20-5.50); Red Cell Distribution Width 14.1 % (11.0-16.0); White Blood Count 6.9 X10*3/uL (4.8-10.8)
[2021-09-07 12:35] LABS: Anion Gap 9 (12-20); Blood Urea Nitrogen 32 mg/dL (9-16); Calcium 8.9 mg/dL (8.4-10.2); Carbon Dioxide 22 mmol/L (22-29); Chloride 114 mmol/L (96-108); Estimated Glomerular Filt Rate 34; Glucose Random 140 mg/dL (60-115); Potassium 5.1 mmol/L (3.3-5.1); Sodium 140 mmol/L (135-145)
== END 2021-09-07 09:11 | disposition home or self-care (01) ==
LOC: HO.HMGCLDS 09:10
PROVIDERS: PCP Internal Medicine; Visit Provider Internal Medicine
DX: N18.30 Chronic kidney disease, stage 3 unspecified (principal); N25.81 Secondary hyperparathyroidism of renal origin
CPT/HCPCS: 36415; 80048; 85025

== ENCOUNTER → 2021-09-13 13:47 | Outpatient (BNVA) | payer MEDICARE, OTHER, SELFPAY | PROVIDERS: PCP Internal Medicine; Visit Provider Anesthesiology | DX: M47.27 Other spondylosis with radiculopathy, lumbosacral region (principal) | CPT/HCPCS: 99202 ==

== ENCOUNTER 2021-09-16 09:48 | Outpatient (REF) | payer MEDICARE, OTHER, SELFPAY ==
--- NOTE | ~2021-09-16 | MR_ITS ---
EXAMINATION: MR LUMBAR SPINE WITHOUT CONTRAST CLINICAL INFORMATION: Radiculopathy, lumbar region. History of trauma. COMPARISON: Plain films of the lumbar spine 08/13/2021. TECHNIQUE: MRI of the lumbar spine was obtained using routine sequences without contrast. FINDINGS: VERTEBRAL BODIES AND PARASPINAL STRUCTURES: There is a 5 mm grade 1 anterolisthesis of L4 on L5. There is narrowing of intervertebral disc height at L4-L5 and L5-S1. There is disc desiccation throughout the lumbar spine. There are degenerative endplate contour changes at multiple levels. There are edematous endplate signal changes at L4-L5. Mixed edematous and fatty endplate signal changes are seen toward the right at L5-S1. Vertebral body heights are maintained and no fractures are demonstrated. Overall, marrow signal is homogenous. There is a partially visualized cyst toward the lower pole of the right kidney. CONUS MEDULLARIS AND CAUDA EQUINA: Normal, terminating at the level of T12-L1. The lower thoracic spinal cord appears normal. The cauda equina nerve roots and filum terminale appear normal. SPINAL LEVELS: L1-L2: There is mild bilateral facet arthropathy. Disc contour is normal. There is no central stenosis or foraminal narrowing. L2-L3: There is mild to moderate bilateral facet arthropathy with ligamenta flava hypertrophy and small facet joint effusions. There is a diffuse disc bulge with mild flattening of the ventral thecal sac but there is no central stenosis. There is no foraminal nerve root impingement. L3-L4: There is moderate to severe bilateral facet arthropathy. There is a broad-based posterior disc protrusion extending into the neural foramina bilaterally with impingement on the exiting L3 nerve roots. There is also an extruded disc extending cephalad into the lateral recess of L3 on the left with impingement on the traversing left L3 nerve root. There is narrowing of the left subarticular recess with mild impingement on the traversing left L4 nerve root. There is distortion of the dorsal thecal sac from epidural lipomatosis. There is mild central stenosis. L4-L5: There is markedly severe bilateral facet arthropathy with ligamenta flava hypertrophy and facet joint effusions. There is unroofing of the disc as a result of the anterolisthesis, and there are bilateral foraminal disc protrusions with mild impingement on the exiting L4 nerve roots. There is a large extruded disc component extending cephalad on the right into the right lateral recess of L4 with severe mass effect on the traversing right L4 nerve root. There is marked narrowing of the bilateral subarticular recesses with impingement traversing L5 nerve roots bilaterally. Epidural lipomatosis distorts the dorsal thecal sac and there is moderate to severe central stenosis. L5-S1: There is moderate to severe bilateral facet arthropathy. There is a posterior disc protrusion with an annular fissure which is most prominent centrally and to the right of midline and there is distortion of the ventral thecal sac. There is impingement on the traversing S1 nerve roots bilaterally, more prominently on the right. There is an inferior foraminal disc protrusion on the right, with impingement on the exiting right L5 nerve root. There is mild central stenosis. MR/MR lumbar spine wo con IMPRESSION: 1. At L4-L5 there is markedly severe facet arthropathy. There is a large extruded disc component extending cephalad on the right into the right lateral recess of L4 with severe mass effect on the traversing right L4 nerve root. There is marked narrowing of the subarticular recesses with impingement traversing L5 nerve roots, and there is moderate to severe central stenosis. 2. At L3-L4 there is facet arthropathy and there is a broad-based posterior disc protrusion extending into the neural foramina. An extruded disc component extends cephalad into the lateral recess of L3 on the left, and impinges on the traversing left L3 nerve root. There is narrowing of the left subarticular recess and there is impingement on the traversing left L4 nerve root. There is mild central stenosis. 3. At L5-S1 there is a posterior disc protrusion with impingement on the traversing S1 nerve roots, more prominently on the right. There is a foraminal disc protrusion on the right impinging on the exiting right L5 nerve root. There is mild central stenosis.
== END 2021-09-16 09:49 | disposition home or self-care (01) ==
LOC: HO.MRI 09:48
PROVIDERS: Visit Provider Internal Medicine
DX: M54.16 Radiculopathy, lumbar region (principal); R20.2 Paresthesia of skin; R29.898 Other symptoms and signs involving the musculoskeletal system
CPT/HCPCS: 72148

== ENCOUNTER → 2021-10-18 16:48 | Outpatient (BNVA) | payer MEDICARE, OTHER, SELFPAY | PROVIDERS: PCP Internal Medicine; Visit Provider Anesthesiology | DX: M47.27 Other spondylosis with radiculopathy, lumbosacral region (principal); R29.898 Other symptoms and signs involving the musculoskeletal system; R20.2 Paresthesia of skin | CPT/HCPCS: 99212 ==

== ENCOUNTER → 2022-03-22 12:40 | Outpatient (BNVA) | payer MEDICARE, SELFPAY | PROVIDERS: PCP Internal Medicine; Referring Provider Internal Medicine; Visit Provider Internal Medicine | DX: I35.0 Nonrheumatic aortic (valve) stenosis (principal) | CPT/HCPCS: 93005; 99202 ==

== ENCOUNTER → 2022-03-30 14:55 | Outpatient (REF) | payer MEDICARE, OTHER, SELFPAY ==
--- NOTE | 2022-03-30 14:57 | CA_ITS ---
Transthoracic Echocardiogram Patient (Last, First, Middle): Sherry Santoyo, Gender: Female Date of : 1940 Age: 81 Procedure Date: 03/30/2022 Procedure Type: Transthoracic Echocardiogram Location: OP Height: 162.56 cm Weight: 82.56 kg BSA: 1.88 m2 Heart Rate: bpm BP: 130 / 75 mmHg Public Area Attendant: AFUA Zheng MD: Casey Richardson MD Survey Project Manager: London Hsu MD Symptoms: I35.0 - Nonrheumatic aortic (valve) stenosis Study Quality: Fair ECG Rhythm: Sinus Conclusions: - 1. Normal LV systolic function with impaired relaxation filling pattern 2. Mildly dilated left atrium 3. Moderate to severe aortic stenosis, more likely moderate 4. Normal RV systolic pressure 5. No gross pericardial effusion Findings Left Ventricle Normal left ventricular size, thickness, and systolic function. The visually estimated ejection fraction is between 55-60%. Spectral Doppler is indicative of an impaired relaxation filling pattern. Elevated filling pressures. E/E prime ratio is >15, consistent with elevated filling pressures. Right Ventricle Normal right ventricular cavity size and systolic function. Atria The left atrium is mildly dilated. There is lipomatous hypertrophy of the interatrial septum. There is no evidence of interatrial shunt. The right atrium is likely dilated. Aortic Valve There is mild calcification of the aortic valve. There is moderate thickening of the aortic valve. There is moderate to severe aortic valve stenosis. The mean gradient is 27 mmHg. The aortic valve area is 1.00 cm2. There is mild aortic valve regurgitation. Dimensionless index it at 0.28, more consistent with moderate aortic valve stenosis Mitral Valve There is mild anterior and moderate posterior mitral leaflet thickening. There is moderate mitral annular calcification. There is trace mitral valve regurgitation. There is no mitral valve stenosis. Pulmonic Valve The pulmonic valve was not well visualized. Tricuspid Valve Likely normal tricuspid valve structure and function. There is mild tricuspid valve regurgitation. The right ventricular systolic pressure is normal. The right ventricular systolic pressure is 34 mmHg. Normal right atrial pressure. There is no evidence of pulmonary hypertension. Great Vessels All visible segments of the aorta are normal in size. The pulmonary artery was not well visualized. Venous The inferior vena cava is normal in size and collapses greater than 50% with inspiration. Pericardium/Pleural There is no evidence of pericardial effusion. Prior Study Comparison Changes noted compared to prior study dated: 11/30/2018. Aortic stenosis has progressed Measurements 2D Linear Measurements IVSd: 0.98 0.6-0.9/0.6-1.0 cm LVIDd: 3.67 3.9-5.3/4.2-5.9 cm LVIDd Index: 1.95 2.4-3.2/2.2-3.1 cm/m2 LVIDs: 2.59 2.0-3.6 cm LVPWd: 0.91 0.7-1.1 cm LA Diam: 3.70 2.7-3.8/3.0-4.0 cm LAIDs Index: 1.97 1.5-2.3 cm/m2 LV Mass: 126.86 67-162/88-224 g LV Mass Index: 67.48 43-95/49-115 g/m2 LVOT Diam: 2.10 3.0+(-)1.3 cm 2D Systolic Function EF 4C: 59.80 >55% EF 2C: 55.70 >55% EF BiP: 58.40 >55% Mitral Valve MV Pk E: 1.02 MV PK A: 0.99 MV Decel Time: 235.00 E/A: 1.00 PHT: 69.00 MVA PHT: 3.19 Decel [place]: 4.32 Aortic Valve AoV Pk Jony: 3.29 AoV Mn Jony: 2.50 AoV VTI: 0.95 AoV Pk Grad: 43.00 Aov Mn Grad: 27.00 BENEDICT Cont.VTI: 1.00 AI Pk Jony: 3.69 AI [place]: 2.28 LVOT LVOT Pk Jony: 0.92 LVOT Mn Jony: 0.58 LVOT VTI: 0.27 LVOT Pk Grad: 3.00 LVOT Mn Grad: 2.00 LVOT Diam: 2.10 LVOT Area: 3.46 Diastolic Function MV Pk E: 1.02 MV Pk A: 0.99 E/A: 1.00 Right Ventricle TAPSE (mm): 21.90 TVS' Jony: 10.30 Tricuspid Valve TR Pk Jony: 2.80 TR Pk Grad: 31.00 RA Press: 3.00 RVSP: 34.00 Great Vessels Aorta Sinus of Valsalva: 3.09 2.0-3.[address] Ridge: 2.66 1.7-3.4 cm Ao Asc: 3.20 2.1-3.4 cm Ao Arch: 3.00 Updated in Other Vendor System with Status of Final London Hsu MD electronically signed on 03/31/2022 4:36:45 PM with status of Final
== END ==
LOC: HO.CARD 14:55
PROVIDERS: Visit Provider Internal Medicine
DX: I44.0 Atrioventricular block, first degree (principal); I35.0 Nonrheumatic aortic (valve) stenosis; R01.1 Cardiac murmur, unspecified; R06.02 Shortness of breath; I10 Essential (primary) hypertension
CPT/HCPCS: 93306

== ENCOUNTER → 2022-04-11 14:54 | Outpatient (BNVA) | payer MEDICARE, SELFPAY | PROVIDERS: PCP Internal Medicine; Referring Provider Internal Medicine; Visit Provider Internal Medicine | DX: I35.0 Nonrheumatic aortic (valve) stenosis (principal); I10 Essential (primary) hypertension; E11.8 Type 2 diabetes mellitus with unspecified complications | CPT/HCPCS: 99212 ==

== ENCOUNTER 2022-05-17 11:30 | Outpatient (REF) | payer MEDICARE, SELFPAY ==
[2022-05-17 12:34] LABS: Hematocrit 33.5 % (37.0-47.0); Hemoglobin 10.4 g/dl (12.0-16.0); Mean Corpuscular Hemoglobin 32.4 pg (27.0-33.0); Mean Corpuscular Volume 104.4 fL (80.0-98.0); Mean Platelet Volume 9.7 fL (9.4-12.3); Platelet Count 198 X10*3/uL (160-400); Red Blood Count 3.21 X10*6/uL (4.20-5.50); Red Cell Distribution Width 14.2 % (11.0-16.0); White Blood Count 5.3 X10*3/uL (4.8-10.8)
[2022-05-17 12:39] LABS: Prothrombin Time 11.1 SEC (10.0-13.1)
[2022-05-17 13:02] LABS: Anion Gap 11 (12-20); Blood Urea Nitrogen 35 mg/dL (9-16); Calcium 8.9 mg/dL (8.4-10.2); Carbon Dioxide 21 mmol/L (22-29); Chloride 114 mmol/L (96-108); Estimated Glomerular Filt Rate 31; Glucose Random 221 mg/dL (60-115); Sodium 141 mmol/L (135-145)
== END 2022-05-17 11:31 | disposition home or self-care (01) ==
LOC: HO.LAB 11:30
PROVIDERS: PCP Internal Medicine; Visit Provider Internal Medicine
DX: I35.0 Nonrheumatic aortic (valve) stenosis (principal)
CPT/HCPCS: 36415; 80048; 85027; 85610

== ENCOUNTER → 2022-06-07 12:50 | Outpatient (BNVA) | payer MEDICARE, SELFPAY | PROVIDERS: PCP Internal Medicine; Referring Provider Internal Medicine; Visit Provider Nurse Practitioner Family | DX: I25.10 Atherosclerotic heart disease of native coronary artery without angina pectoris (principal); E11.22 Type 2 diabetes mellitus with diabetic chronic kidney disease; I12.9 Hypertensive chronic kidney disease with stage 1 through stage 4 chronic kidney disease, or unspecified chronic kidney disease; N18.30 Chronic kidney disease, stage 3 unspecified; E78.5 Hyperlipidemia, unspecified; R07.89 Other chest pain; R06.02 Shortness of breath; I35.0 Nonrheumatic aortic (valve) stenosis; Z79.899 Other long term (current) drug therapy; Z98.890 Other specified postprocedural states; Z48.812 Encounter for surgical aftercare following surgery on the circulatory system | CPT/HCPCS: 99212 ==

== ENCOUNTER 2022-06-21 10:13 | Outpatient (REF) | payer MEDICARE, SELFPAY ==
[2022-06-21 10:43] LABS: MANUAL DIFF FLAG NO
[2022-06-21 11:06] LABS: Basophils Percent Auto 0.4 % (0-2); Eosinophils Absolute Auto 0.2 X10*3/uL (0.0-0.4); Eosinophils Percent Auto 2.8 % (0-4); Hematocrit 32.2 % (37.0-47.0); Hemoglobin 10.3 g/dl (12.0-16.0); Imm Gran Abs Auto 0.02 X10*3/uL (0.00-0.03); Imm Gran Pct Auto 0.4 % (0.0-0.4); Lymphocytes Absolute Auto 1.5 X10*3/uL (1.2-4.9); Lymphocytes Percent Auto 27.1 % (20-40); Mean Corpuscular Hemoglobin 32.9 pg (27.0-33.0); Mean Corpuscular Volume 102.9 fL (80.0-98.0); Mean Platelet Volume 9.4 fL (9.4-12.3); Monocytes Absolute Auto 0.6 X10*3/uL (0.1-1.2); Monocytes Percent Auto 10.2 % (2-11); Neutrophils Absolute Auto 3.2 x10*3/uL (2.0-8.3); Neutrophils Percent Auto 59.1 % (45-73); Platelet Count 201 X10*3/uL (160-400); Red Blood Count 3.13 X10*6/uL (4.20-5.50); Red Cell Distribution Width 14.5 % (11.0-16.0); White Blood Count 5.4 X10*3/uL (4.8-10.8)
[2022-06-21 11:08] LABS: Prothrombin Time 11.9 SEC (10.0-13.1)
[2022-06-21 11:51] LABS: Anion Gap 15 (12-20); Blood Urea Nitrogen 41 mg/dL (9-16); Calcium 9.1 mg/dL (8.4-10.2); Carbon Dioxide 16 mmol/L (22-29); Chloride 117 mmol/L (96-108); Estimated Glomerular Filt Rate 29; Glucose Random 148 mg/dL (60-115); Potassium 5.4 mmol/L (3.3-5.1); Sodium 143 mmol/L (135-145)
== END 2022-06-21 10:14 | disposition home or self-care (01) ==
LOC: HO.LAB 10:13
PROVIDERS: PCP Internal Medicine; Visit Provider Nurse Practitioner Family
DX: I25.10 Atherosclerotic heart disease of native coronary artery without angina pectoris (principal)
CPT/HCPCS: 36415; 80048; 85025; 85610

== ENCOUNTER 2022-07-07 11:11 | Outpatient (REF) | payer MEDICARE, SELFPAY ==
--- NOTE | ~2022-07-07 | MM_ITS ---
EXAMINATION: MM SCREENING DIGITAL BREAST TOMOSYNTHESIS, BILATERAL CLINICAL INFORMATION: Screening. Asymptomatic. The lifetime risk of breast cancer based on the Tyrer-Cuzick Model is 1%. COMPARISON: Mammography: 01/16/2018 (new baseline) TECHNIQUE: Digital breast tomosynthesis is performed in both the craniocaudal and mediolateral oblique views along with computer-aided detection (CAD). Synthesized 2D images are generated from the tomosynthesis. FINDINGS: There are scattered areas of fibroglandular density (ACR BI-RADS breast composition Category b). There are no significant masses, abnormal calcifications, or other abnormalities. Parenchymal pattern is similar to prior studies. There is no developing density or architectural abnormality. The axilla and skin contours are unremarkable. No significant changes. MM/MM tomosynthesis screening BI IMPRESSION: No mammographic evidence of malignancy. ASSESSMENT: BI-RADS 1: Negative RECOMMENDATION: Routine annual mammography screening. This patient's information was entered into a reminder system with a target due date for their next mammogram.
== END 2022-07-07 11:12 | disposition home or self-care (01) ==
LOC: HO.MAMMO 11:11
PROVIDERS: PCP Internal Medicine; Visit Provider Internal Medicine
DX: Z12.31 Encounter for screening mammogram for malignant neoplasm of breast (principal)
CPT/HCPCS: 77063; 77067

== ENCOUNTER → 2022-07-14 14:58 | Outpatient (BNVA) | payer MEDICARE, SELFPAY | PROVIDERS: PCP Internal Medicine; Referring Provider Internal Medicine; Visit Provider Internal Medicine | DX: I35.0 Nonrheumatic aortic (valve) stenosis (principal); I25.10 Atherosclerotic heart disease of native coronary artery without angina pectoris; I10 Essential (primary) hypertension; E11.8 Type 2 diabetes mellitus with unspecified complications; Z79.899 Other long term (current) drug therapy | CPT/HCPCS: 99212 ==

== ENCOUNTER → 2022-09-29 13:02 | Outpatient (REF) | payer MEDICARE, SELFPAY ==
--- NOTE | 2022-09-29 13:05 | CA_ITS ---
Transthoracic Echocardiogram Patient (Last, First, Middle): Sherry Santoyo, Gender: Female Date of : 1940 Age: 82 Procedure Date: 09/29/2022 Procedure Type: Transthoracic Echocardiogram Location: OP Height: 162.56 cm Weight: 82.56 kg BSA: 1.88 m2 Heart Rate: bpm BP: 137 / 78 mmHg Adobe Cq Developer: JIGAR Referring MD: Casey Richardson MD Hydrotel Operator: London Hsu MD Symptoms: I35.0 - Nonrheumatic aortic (valve) stenosis Study Quality: Adequate ECG Rhythm: Sinus Conclusions: - 1. Normal LV systolic function with impaired relaxation filling pattern 2. Mildly dilated left atrium 3. Severe aortic stenosis with mean gradient of 39 mmHg 4. Normal RV systolic pressure 5. No gross pericardial effusion Findings Left Ventricle Normal left ventricular size, thickness, and systolic function. The visually estimated ejection fraction is between 55-60%. Spectral Doppler is indicative of an impaired relaxation filling pattern. E/E prime ratio is between 8 and 15 consistent with indeterminate filling pressures. Right Ventricle Normal right ventricular cavity size and systolic function. Atria The left atrium is mildly dilated. Interatrial shunt cannot be excluded. The right atrium is normal in size. Aortic Valve There is moderate calcification of the aortic valve. There is moderate thickening of the aortic valve. There is severe aortic valve stenosis. The peak aortic gradient is 67 mmHg.The mean gradient is 39 mmHg. The aortic valve area is 0.88 cm2. There is mild aortic valve regurgitation. mean gradient has increased significantly compared to prior study. The dimensionless index is 0.255, within severe range. Mitral Valve There is mild anterior and moderate posterior mitral leaflet thickening. There is moderate mitral annular calcification. There is mild mitral valve regurgitation. There is no mitral valve stenosis. Pulmonic Valve The pulmonic valve is likely normal. There is trace pulmonic valve regurgitation. Tricuspid Valve Normal tricuspid valve structure. There is mild tricuspid valve regurgitation. The right ventricular systolic pressure is normal. The right ventricular systolic pressure is 30 mmHg. Normal right atrial pressure. There is no evidence of pulmonary hypertension. Great Vessels All visible segments of the aorta are normal in size. The pulmonary artery was not well visualized. Venous The inferior vena cava is normal in size and collapses greater than 50% with inspiration. Pericardium/Pleural There is no evidence of pericardial effusion. Prior Study Comparison Changes noted compared to prior study dated: 03/30/2022. aortic stenosis is severe Measurements 2D Linear Measurements IVSd: 1.15 0.6-0.9/0.6-1.0 cm LVIDd: 4.14 3.9-5.3/4.2-5.9 cm LVIDd Index: 2.20 2.4-3.2/2.2-3.1 cm/m2 LVIDs: 2.55 2.0-3.6 cm LVPWd: 1.09 0.7-1.1 cm LA Diam: 3.50 2.7-3.8/3.0-4.0 cm LAIDs Index: 1.86 1.5-2.3 cm/m2 LV Mass: 196.29 67-162/88-224 g LV Mass Index: 104.41 43-95/49-115 g/m2 LVOT Diam: 2.10 3.0+(-)1.3 cm 2D Systolic Function EF 4C: 56.30 >55% EF 2C: 63.20 >55% EF BiP: 59.60 >55% Mitral Valve MV Pk E: 1.01 MV PK A: 1.20 MV Decel Time: 348.00 E/A: 0.80 E'Lateral: 5.22 E'Medial: 4.13 E/E' Med: 24.50 E/E' Lat: 19.30 PHT: 102.00 MVA PHT: 2.16 Decel [place]: 2.91 Aortic Valve AoV Pk Jony: 4.09 AoV Mn Jony: 2.96 AoV VTI: 1.04 AoV Pk Grad: 67.00 Aov Mn Grad: 39.00 BENEDICT Cont.VTI: 0.88 AI Pk Jony: 3.69 AI [place]: 2.83 LVOT LVOT Pk Jony: 0.90 LVOT Mn Jony: 0.64 LVOT VTI: 0.27 LVOT Pk Grad: 3.00 LVOT Mn Grad: 2.00 LVOT Diam: 2.10 LVOT Area: 3.46 Diastolic Function MV Pk E: 1.01 MV Pk A: 1.20 E/A: 0.80 E'Medial: 4.13 E/E' Med: 24.50 E' Laterial: 5.22 E/E' Lat: 19.30 Right Ventricle TAPSE (mm): 18.30 TVS' Jony: 7.94 Tricuspid Valve TR Pk Jony: 2.62 TR Pk Grad: 27.00 RA Press: 3.00 RVSP: 30.00 Great Vessels Aorta Sinus of Valsalva: 3.18 2.0-3.[address] Ridge: 2.52 1.7-3.4 cm Ao Asc: 3.00 2.1-3.4 cm Updated in Other Vendor System with Status of Final London Hsu MD electronically signed on 09/29/2022 2:38:11 PM with status of Final
== END ==
LOC: HO.CARD 13:02
PROVIDERS: PCP Internal Medicine; Visit Provider Internal Medicine
DX: I35.0 Nonrheumatic aortic (valve) stenosis (principal)
CPT/HCPCS: 93306

== ENCOUNTER → 2022-10-18 10:59 | Outpatient (BNVA) | payer MEDICARE, SELFPAY | PROVIDERS: PCP Internal Medicine; Referring Provider Internal Medicine; Visit Provider Internal Medicine | DX: Z01.818 Encounter for other preprocedural examination (principal); I35.0 Nonrheumatic aortic (valve) stenosis; I25.10 Atherosclerotic heart disease of native coronary artery without angina pectoris; I10 Essential (primary) hypertension; E11.8 Type 2 diabetes mellitus with unspecified complications | CPT/HCPCS: 93005; 99212 ==

== ENCOUNTER 2023-01-11 13:14 | Outpatient (REF) | payer MEDICARE, SELFPAY ==
[2023-01-11 13:53] LABS: MANUAL DIFF FLAG NO
[2023-01-11 14:03] LABS: Basophils Percent Auto 0.6 % (0-2); Eosinophils Absolute Auto 0.2 X10*3/uL (0.0-0.4); Eosinophils Percent Auto 4.5 % (0-4); Hematocrit 33.2 % (37.0-47.0); Hemoglobin 10.5 g/dl (12.0-16.0); Imm Gran Abs Auto 0.01 X10*3/uL (0.00-0.03); Imm Gran Pct Auto 0.2 % (0.0-0.4); Lymphocytes Absolute Auto 1.6 X10*3/uL (1.2-4.9); Lymphocytes Percent Auto 33.9 % (20-40); Mean Corpuscular HGB Conc 31.6 g/dl (31.0-35.0); Mean Corpuscular Hemoglobin 33.3 pg (27.0-33.0); Mean Corpuscular Volume 105.4 fL (80.0-98.0); Mean Platelet Volume 9.7 fL (9.4-12.3); Monocytes Absolute Auto 0.4 X10*3/uL (0.1-1.2); Monocytes Percent Auto 8.4 % (2-11); Neutrophils Absolute Auto 2.4 x10*3/uL (2.0-8.3); Neutrophils Percent Auto 52.4 % (45-73); Platelet Count 192 X10*3/uL (160-400); Red Blood Count 3.15 X10*6/uL (4.20-5.50); Red Cell Distribution Width 13.8 % (11.0-16.0); White Blood Count 4.7 X10*3/uL (4.8-10.8)
[2023-01-11 14:24] LABS: Estimated Average Glucose 151 mg/dL; Hemoglobin A1c % 6.9 %
[2023-01-11 14:28] LABS: Alanine Aminotransferase 16 U/L (0-31); Alkaline Phosphatase 72 U/L (39-117); Anion Gap 13 (12-20); Aspartate Amino Transferase 16 U/L (5-31); Bilirubin Total 0.9 mg/dL (0.0-1.0); Blood Urea Nitrogen 31 mg/dL (9-16); Calcium 9.1 mg/dL (8.4-10.2); Carbon Dioxide 24 mmol/L (22-29); Chloride 113 mmol/L (96-108); Estimated Glomerular Filt Rate 35; Glucose Random 141 mg/dL (60-115); Potassium 5.2 mmol/L (3.3-5.1); Sodium 145 mmol/L (135-145); Total Protein 6.7 g/dL (6.5-8.0)
== END 2023-01-11 13:15 | disposition home or self-care (01) ==
LOC: HO.HMGCLDS 13:14
PROVIDERS: PCP Internal Medicine; Visit Provider Internal Medicine
DX: E13.9 Other specified diabetes mellitus without complications (principal); E79.0 Hyperuricemia without signs of inflammatory arthritis and tophaceous disease; I10 Essential (primary) hypertension; I35.0 Nonrheumatic aortic (valve) stenosis; M19.90 Unspecified osteoarthritis, unspecified site; N28.9 Disorder of kidney and ureter, unspecified; F41.1 Generalized anxiety disorder
CPT/HCPCS: 36415; 80053; 83036; 85025

== ENCOUNTER → 2023-03-01 11:13 | Outpatient (BNVA) | payer MEDICARE, SELFPAY | PROVIDERS: PCP Internal Medicine; Referring Provider Internal Medicine; Visit Provider Internal Medicine | DX: I35.0 Nonrheumatic aortic (valve) stenosis (principal); I25.10 Atherosclerotic heart disease of native coronary artery without angina pectoris; I10 Essential (primary) hypertension; E11.8 Type 2 diabetes mellitus with unspecified complications; Z79.84 Long term (current) use of oral hypoglycemic drugs; Z79.899 Other long term (current) drug therapy | CPT/HCPCS: 99212 ==

== ENCOUNTER → 2023-05-03 12:52 | Outpatient (REF) | payer MEDICARE, SELFPAY | LOC: HO.CARD 12:52 | PROVIDERS: PCP Internal Medicine; Visit Provider Internal Medicine | DX: I25.10 Atherosclerotic heart disease of native coronary artery without angina pectoris (principal) | CPT/HCPCS: 93306 ==

== ENCOUNTER 2023-06-29 09:32 | Outpatient (AMB) | payer MEDICARE, SELFPAY ==
[2023-06-29 09:37] VITALS: BP 130/72; PULSE 73; BMI 32.9
--- NOTE | 2023-06-29 09:37 | A.OFFVIS_ITS ---
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: No Allergies Penicillins [PCN] Allergy (Mild, Verified 06/29/23 09:46) RASH Medication List - Last Reconciled 06/29/23 by Sondra Higgins NP-C [updraft machine As directed] albuterol sulfate 0.63 mg (3 mL) inhalation QID PRN albuterol sulfate 90 mcg/actuation (ProAir HFA) 1 inh inhalation QID PRN 30 days allopurinol 100 mg PO DAILY aspirin 81 mg PO DAILY atenolol 50 mg PO DAILY atorvastatin 40 mg PO DAILY clopidogrel 75 mg PO DAILY ferrous sulfate 325 mg PO DAILY glipizide 5 mg PO BID lisinopril 10 mg PO DAILY 90 days oxycodone 5 mg PO BID PRN 15 days HPI follow up per patient HPI Details Lorena Cloud is an 83-year-old female with past medical history of hypertension, diabetes, hyperlipidemia, first-degree AV block, CAD status post 2 cardiac catheterization with stent placements, severe aortic stenosis with recent TAVR who presents for follow-up. Today she reports she has been feeling well since her procedure. She was discharged the day after TAVR and has had follow-up with her surgeon. She reports much improvement in her breathing and activity tolerance. She says she only notices shortness of breath if she over does it. She has felt quick stabbing pains to the chest on rare occasion. She is no longer getting the mid chest pressure and severe shortness of breath that she was having prior to her stents and TAVR. No dizziness, presyncope, syncope, falls. No PND, orthopnea or edema. She is taking her medications as directed. No bleeding issues reported. 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 Nephropathy Spondylosis of lumbosacral spine with radiculopathy Surgical History History of cholecystectomy History of hysterectomy History of left cataract surgery History of tonsillectomy Hx of cardiac cath Family History Father Diabetes Hypertension Mother Diabetes Breast cancer Colon cancer Social History Housing: House Alcohol intake: current Alcohol intake frequency: holidays/special occasions only Patient Tobacco Use Status: Never used Tobacco e-Cigarette/Vaping Use: Never Used service: No Current occupational status: retired Cognitive needs: No Hearing needs: No Vision needs: No Review of Systems Const All systems reviewed & are unremarkable except as noted in HPI and below ENT Denies dizziness Card Reports chest pain (sharp), Denies chest pain at rest, Denies chest pain with activity, Denies rapid heart rate, Denies pedal edema, Denies edema, Denies leg edema, Denies lightheadedness, Denies palpitations, Denies dyspnea, Reports dyspnea on exertion (only if she overdoes it) and Denies orthopnea Resp Denies cough, Denies dyspnea and Reports dyspnea on exertion (only if she overdoes it) GI Denies hematochezia and Denies change in stool character Musc Denies abnormal gait, Denies limited range of motion, Denies muscle cramps, Denies muscle weakness, Denies numbness, Denies radiating pain into limb, Denies stiffness and Denies tingling Neuro Denies abnormal gait, Denies dizziness, Denies numbness and Denies tingling Endo Denies palpitations Physical Exam Vital Signs: Last Vital Signs Pulse 73 06/29/23 09:37 BP 130/72 06/29/23 09:37 BMI result Body Mass Index 32.9 Const General: cooperative, healthy appearing, comfortable and no acute distress Orientation/consciousness: patient oriented x3 Neck Neck: Yes normal visual inspection Resp Effort & Inspection: normal respiratory effort Auscultation: clear to auscultation bilaterally, no crackles, no rales, no rhonchi and no wheezes Cardio Jugular venous distension: no JVD Rate: regular rate Rhythm: regular rhythm Heart sounds: S1 normal heart sound present, S2 normal heart sound present, no gallops, no murmurs and no rubs Neuro General: patient oriented x3 Extrem General: Yes normal to inspection Psych Appearance: grossly normal Mental Status: mental status grossly normal Speech and movement: Normal speech and movement present Assessment & Plan Assessment & Plan (1) S/P aortic valve replacement with bioprosthetic valve: Comment: 03/30/2023, TAVR Dr. Dockery Code(s): Z95.3 - Presence of xenogenic heart valve Plan: History of severe aortic stenosis. She underwent TAVR with Dr. Dockery on 03/30/2023. Echocardiogram done 05/03/2023 shows EF 65-70%, bioprosthetic aortic valve functioning normally. No significant cardiac murmur noted on examination. She has no signs of heart failure on exam. She reports improvement in her breathing and prior chest pressure. Cardiac surgery note reviewed and they are requesting echocardiogram prior to her 1 year follow-up visit. Will order echocardiogram for 9 months from now. She will continue on aspirin indefinitely. Continue Plavix for at least another 2 months per her cardiac surgery note. Will start in cardiac rehab. She says she does not know if [facility] or [place] will be more convenient for her daughter to bring her so she will let us know where to send referral. Cardiology follow-up in 3 months, sooner if needed to reassess for symptoms, angina. (2) S/P cardiac cath: Comment: 05/24/22 Prox LAD 70% stenosis and MIL placed, Mid LCx 70% stenosis, planned for staged PCI, AV mean gradiant 28mmhg Code(s): Z98.890 - Other specified postprocedural states Plan: Last year with stent to the proximal LAD as well as 2 stents in the circumflex into OM1. No reports of anginal sounding chest discomfort. She reports breathing is much improved. Signs and symptoms of angina reviewed. Continue aspirin indefinitely. Continue Plavix uninterrupted for at least 1 yr post last stent ( which is now however she needs to continue Plavix for another 2 months per TAVR guideline). Continue atorvastatin with ideal LDL goal less than 70. No recent lipid profile in our system. Will order. Continue atenolol and lisinopril for good heart rate blood pressure control. Blood pressure currently 130/72. (3) S/P cardiac cath: Comment: 06/28/2022, left main normal, stent in the proximal to mid LAD, left circumflex proximal 75% stenosis, 2 MIL placed in the circumflex and into OM1 Code(s): Z98.890 - Other specified postprocedural states (4) CAD (coronary artery disease): Code(s): I25.10 - Atherosclerotic heart disease of [place] coronary artery without angina pectoris Plan: As above (5) Essential hypertension: Code(s): I10 - Essential (primary) hypertension Plan: Well controlled, no med change Orders: Orders Cardiac Rehab Today Z95.3 - Presence of xenogenic heart valve, Z95.5 - Presence of coronary angioplasty implant and graft, Z98.890 - Other specified postprocedural states CA echo transthoracic complete 9 Months Z95.3 - Presence of xenogenic heart valve Lipid Panel Today Z95.5 - Presence of coronary angioplasty implant and graft Coding Level of Care Code Est Pt Level 4 (96189) Diagnoses S/P aortic valve replacement with bioprosthetic valve Z95.3 S/P cardiac cath Z98.890 CAD (coronary artery disease) I25.10 Essential hypertension I10 Time Spent (min) 28 Comment Chart review, documentation, interview, assessment
== END 2023-06-29 10:14 | disposition home or self-care (01) ==
PROVIDERS: PCP Internal Medicine; Referring Provider Internal Medicine; Visit Provider Nurse Practitioner Family
DX: Z95.3 Presence of xenogenic heart valve (principal); Z98.890 Other specified postprocedural states; I25.10 Atherosclerotic heart disease of native coronary artery without angina pectoris; I10 Essential (primary) hypertension
CPT/HCPCS: 99214

== ENCOUNTER → 2023-06-29 09:32 | Outpatient (BNVA) | payer MEDICARE, SELFPAY | PROVIDERS: PCP Internal Medicine; Referring Provider Internal Medicine; Visit Provider Nurse Practitioner Family | DX: Z95.3 Presence of xenogenic heart valve (principal); I25.10 Atherosclerotic heart disease of native coronary artery without angina pectoris; I10 Essential (primary) hypertension; Z79.02 Long term (current) use of antithrombotics/antiplatelets | CPT/HCPCS: 99212 ==

== ENCOUNTER 2023-07-26 15:17 | Emergency (ER) | payer MEDICARE, SELFPAY ==
--- NOTE | ~2023-07-26 | XR_ITS ---
EXAMINATION: XR CHEST CLINICAL INFORMATION: Cough. COMPARISON: 04/28/2021. TECHNIQUE: 2 views of the chest were obtained. FINDINGS: The cardiomediastinal silhouette is within normal limits. There is a right mid to lower lung field opacity. The left lung is clear. There are no significant pleural effusions. The bony structures and soft tissues are unremarkable. XR/XR chest 2V IMPRESSION: Right mid to lower lung field opacity possibly an infiltrate and less likely atelectasis. Follow up to resolution recommended.
[2023-07-26 15:37] VITALS: BP 180/81; PULSE 87; RESP 16; TEMP 36.6; O2SAT 97; BMI 31.2
--- NOTE | 2023-07-26 15:37 | ED_ITS ---
HPI - URI/Sore Throat General Chief Complaint: General Medical Stated Complaint: Covid + 5 days ago , symptoms arent getting better Time Seen by Provider: 07/26/23 17:11 Source: patient and family (patient's daughter) Mode of arrival: ambulatory Limitations: no limitations History of Present Illness HPI Narrative: Patient is an 83 year old assigned female at with a history of DM and CAD presenting to the emergency department today with a cough and concern for pneumonia after a COVID-19 diagnosis. Patient states that 5 days ago she was diagnosed with COVID-19 and continues to cough. Patient states that she is prone to pneumonia and is concerned she is developing pneumonia. Patient denies any dizziness, lightheadedness, abdominal pain, nausea, vomiting, fever, chills, blurry vision, double vision, loss of vision, chest pain, difficulty breathing, shortness of breath, back pain, night sweats, pain with urination, increased urinary frequency, increased urinary urgency, blood in her urine or stool, syn cope or a near syncopal episode, recent trauma or falls, bowel incontinence, bladder incontinence, bowel retention, bladder retention, or any other complaints at this time. MD elicited complaint: cough Exacerbating factors: nothing Relieving factors: nothing Associated symptoms: cough Related Data Home Medications Medication Instructions Recorded Confirmed allopurinol 100 mg tablet 100 mg PO DAILY 03/01/23 06/29/23 Previous Rx's Medication Instructions Recorded ferrous sulfate 325 mg (65 mg 325 mg PO DAILY Iron deficiency 04/28/21 iron) tablet anemia #30 tabs updraft machine #1 ea 08/13/21 albuterol sulfate 0.63 mg/3 mL 0.63 mg (3 mL) inhalation QID PRN 04/20/22 solution for nebulization shortness of breath or wheezing #75 mL albuterol sulfate 90 mcg/actuation 1 inh inhalation QID PRN shortness 02/14/23 aerosol inhaler (ProAir HFA) of breath or wheezing 30 days #18 grams aspirin 81 mg tablet,delayed 81 mg PO DAILY #90 tabs 06/05/23 release atorvastatin 40 mg tablet 40 mg PO DAILY #90 tabs 06/05/23 clopidogrel 75 mg tablet 75 mg PO DAILY #90 tabs 06/05/23 atenolol 50 mg tablet 50 mg PO DAILY #90 tabs 06/16/23 oxycodone 5 mg tablet 5 mg PO BID PRN pain 15 days #30 06/30/23 tabs glipizide 5 mg tablet 5 mg PO BID #180 tabs 07/23/23 lisinopril 10 mg tablet 10 mg PO DAILY 90 days #90 tabs 07/23/23 benzonatate 100 mg capsule 100 mg PO BID PRN cough 7 days #14 07/26/23 caps doxycycline hyclate 100 mg tablet 100 mg PO BID 7 days #14 tabs 07/26/23 ondansetron 4 mg disintegrating 4 mg PO Q8H 3 days #9 tabs 07/26/23 tablet prednisone 20 mg tablet 20 mg PO DAILY 7 days #7 tabs 07/26/23 Allergies Allergy/AdvReac Type Severity Reaction Status Date / Time Penicillins [PCN] Allergy Mild RASH Verified 07/26/23 15:37 Review of Systems Constitutional: Constitutional: Reports no additional constitutional complaints, Denies chills, Denies fever(s) and Denies night sweats Eyes: Eyes: Reports no additional eye complaints, Denies blurry vision, Denies change in vision, Denies diplopia, Denies eye discharge, Denies loss of vision and Denies eye pain ENT: Denies dizziness Cardiovascular: Cardiovascular: Reports no additional cardiovascular complaints, Denies chest pain, Denies lightheadedness, Denies Loss of Consciousness and Denies dyspnea Respiratory: Respiratory: Reports no additional respiratory complaints, Reports cough and Denies dyspnea Gastrointestinal: Gastrointestinal: Reports no additional gastrointestinal complaints, Denies abdominal pain, Denies melena, Denies hematochezia, Denies change in bowel habits and Denies change in stool character Genitourinary: Genitourinary: Denies hematuria, Denies urinary frequency, Denies dysuria, Denies urinary incontinence, Denies urinary hesitancy and Denies urinary urgency Musculoskeletal: Musculoskeletal: Reports no additional musculoskeletal complaints, Denies numbness and Denies tingling Neurologic: Denies dizziness, Denies loss of vision, Denies numbness and Denies tingling Psychiatric: Psychiatric: Reports no additional psychiatric complaints Endocrine: Endocrine: Reports no additional endocrine complaints Hematologic/Lymphatic: Hematologic/Lymphatic: Reports no additional hematologic/lymphatic complaints Allergic/Immunologic: Allergic/Immunologic: Reports no additional allergic/immunologic complaints PMFSH Past Medical History Attestation statement: The following information was validated with the patient. 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, managed as type 2 Surgical History Hx of cardiac cath History of tonsillectomy History of left cataract surgery History of hysterectomy History of cholecystectomy Family History Family History Father Diabetes Hypertension Mother Diabetes Breast cancer Colon cancer Social History Social History Housing: House Alcohol intake: current Alcohol intake frequency: holidays/special occasions only Patient Tobacco Use Status: Never used Tobacco e-Cigarette/Vaping Use: Never Used Advance Directives: No Advance Directives Information Provided: No service: No Current occupational status: retired Cognitive needs: No Hearing needs: No Vision needs: No Physical Exam Vital Signs: Vital Signs: Last Vital Signs Temp 98 F 07/26/23 15:37 Pulse 87 07/26/23 15:37 Resp 16 07/26/23 15:37 BP 180/81 H 07/26/23 15:37 Pulse Ox 97 07/26/23 15:37 O2 Del Method Room Air 07/26/23 15:37 BMI result Body Mass Index 31.2 Const: General: cooperative, no acute distress, alert and awake Nutritional Appearance: well nourished Orientation/consciousness: patient oriented x3 Limitations: no limitations HEENT: Head: Yes normal to inspection and Yes atraumatic Ears: hearing grossly normal bilaterally and external ears normal General nose exam: Normal external nose present, no nasal discharge noted and no epistaxis Face and sinus: Yes normal facial exam, No abrasion and No laceration Mouth: Normal oral and palatal mucosa present, no drooling and no muffled voice Eyes: General: appearance normal, both eyes and all related structures Periorbital: periorbital findings normal Eyelids: Yes eyelids normal Conjunctivae: conjunctivae normal Pupils: Equal, round and reactive pupils present EOM: EOMs intact bilaterally Neck: Neck: Yes normal visual inspection, Yes full ROM and Yes no lymphadenopathy Chest: Chest palpation & inspection: normal inspection of the chest Resp: Effort & Inspection: normal respiratory effort and able to speak in complete sentences Auscultation: diminished lung sounds diffuse GI: Inspection: Yes normal to inspection Neuro: General: patient oriented x3 and moves all extremities Cranial nerves: Yes Equal, round and reactive pupils present Cognition (Neuro): normal cognition Motor exam (neuro): 5/5 motor strength present throughout Sensory Exam: Normal double simultaneous stimulation for sensation Coordination: [id number] test normal Extrem: General: Yes normal to inspection, Yes full ROM and Yes capillary refill normal Psych: Appearance: grossly normal Mental Status: mental status grossly normal Affect: normal affect Attitude: cooperative Thought process: Normal thought process present Thought content: Normal thought content present Insight: Good insight present (Psych) Course Course Course Narrative: RME:? 83 yo F presents with persistent cough x5 days since testing positive via at-home covid test. Did not take paxlovid. Denies fever, CP, SOB. Lungs CTA b/l. CXR ordered Full HPI, ROS and PE to be performed by the primary ED provider. Medical Decision Making Medical Decision Making [facility] Narrative: Patient is an 83 year old assigned female at with a history of DM and CAD presenting to the emergency department today with persistent cough and COVID-19. Patient's physical exam was as noted in the physical exam portion of this chart. Patient's chest x-ray showed evidence of pneumonia. I explained my physical exam findings as well as all test results to the patient and the patient's daughter. I answered all questions asked by the patient and the patient's daughter. I stressed the importance of the patient taking her medication as prescribed. I stressed the importance of the patient following up with her primary care provider. I stressed the importance of the patient returning to the emergency department immediately if her symptoms were to worsen or if she were to develop any dizziness, shortness of breath, difficulty breathing, chest pain, blurry vision, loss of vision, nausea, vomiting, abdominal pain, fever, chills, back pain, or any other complaints. Patient and the patient's daughter verbalized agreement and understanding with this treatment plan and discharge. Differential Diagnosis Differential Diagnoses: The differential diagnosis associated with the presentation includes Cough Viral illness PNA COVID-19 Admission/Observation Consideration of admission/observation: Escalation of care including admission/observation considered Patient would have been admitted to the hospital had her work up had any findings where hospital admission was appropriate and her clinical presentation warranted hospital admission. Independent Interpretation I performed an independent interpretation of an: Plain X-Ray Interpretation: My interpretation is in agreement with the radiologist's impression of this imaging study. EXAMINATION: XR CHEST CLINICAL INFORMATION: Cough. COMPARISON: 04/28/2021. TECHNIQUE: 2 views of the chest were obtained. FINDINGS: The cardiomediastinal silhouette is within normal limits. There is a right mid to lower lung field opacity. The left lung is clear. There are no significant pleural effusions. The bony structures and soft tissues are unremarkable. XR/XR chest 2V IMPRESSION: Right mid to lower lung field opacity possibly an infiltrate and less likely atelectasis. Follow up to resolution recommended. Dictated By: Davis Dyer Signed By: Electronically signed by Davis Dyer 07/26/23 6769 Radiology Impression Discussion of test interpretation with radiology: I have reviewed the radiologist's reading. Independent Historian Clinical information obtained from an independent historian. History obtained from or confirmed by: Other (patient's daughter provided additional history and confirmed the history provided by the patient.) Prescription Management I considered prescription management with: Antibiotic (patient prescribed an antibiotic) Discharge Plan Discharge Clinical Impression: Pneumonia, COVID-19 Patient Disposition: Home, Self-Care Instructions: Community Acquired Pneumonia (DC), COVID-19 (Coronavirus Disease 2019) (ED) Additional Instructions: Follow up with your primary care provider. Return to the emergency department immediately if your symptoms worsen or if you develop any dizziness, shortness of breath, difficulty breathing, chest pain, blurry vision, loss of vision, nausea, vomiting, abdominal pain, fever, chills, back pain, or any other complaints. Prescriptions: New prednisone 20 mg tablet 20 mg PO DAILY 7 Days Qty: 7 0RF benzonatate 100 mg capsule 100 mg PO BID PRN (Reason: cough) 7 Days Qty: 14 0RF doxycycline hyclate 100 mg tablet 100 mg PO BID 7 Days Qty: 14 0RF ondansetron 4 mg tablet,disintegrating 4 mg PO Q8H 3 Days Qty: 9 0RF No Action albuterol sulfate 0.63 mg/3 mL solution for nebulization 0.63 mg inhalation QID PRN (Reason: shortness of breath or wheezing) Qty: 75 0RF albuterol sulfate [ProAir HFA] 90 mcg/actuation HFA aerosol inhaler 1 inh inhalation QID PRN (Reason: shortness of breath or wheezing) 30 Days Qty: 18 2RF aspirin 81 mg tablet,delayed release (DR/EC) 81 mg PO DAILY Qty: 90 3RF clopidogrel 75 mg tablet 75 mg PO DAILY Qty: 90 3RF atorvastatin 40 mg tablet 40 mg PO DAILY Qty: 90 3RF atenolol 50 mg tablet 50 mg PO DAILY Qty: 90 3RF oxycodone 5 mg tablet 5 mg PO BID PRN (Reason: pain) 15 Days Qty: 30 0RF lisinopril 10 mg tablet 10 mg PO DAILY 90 Days Qty: 90 1RF glipizide 5 mg tablet 5 mg PO BID Qty: 180 1RF ferrous sulfate 325 mg (65 mg iron) tablet 325 mg PO DAILY Qty: 30 0RF (DME) updraft machine See Rx Instructions .Route .MEDSUPPLY Qty: 1 0RF Rx Instructions: As directed allopurinol 100 mg tablet 100 mg PO DAILY Referrals: León Cannon MD [Primary Care Provider] - Interventions: ED Discharge Assessment Last Done: 07/26/23 17:47 Discharge Date/Time: 07/26/23 17:48 Print Language: Indonesian
== END 2023-07-26 17:48 | disposition home or self-care (01) ==
PROVIDERS: Emergency Provider Emergency Medicine; PCP Internal Medicine
DX: U07.1 COVID-19 (principal); J12.82 Pneumonia due to coronavirus disease 2019; I25.10 Atherosclerotic heart disease of native coronary artery without angina pectoris; R05.9 Cough, unspecified; Z79.899 Other long term (current) drug therapy
CPT/HCPCS: 71046; 99282; 99283; 99284

== ENCOUNTER 2023-08-25 13:24 | Outpatient (AMB) | payer MEDICARE, SELFPAY ==
--- NOTE | 2023-08-25 13:26 | A.OFFPC_ITS ---
Vital Signs 08/25/23 13:34 Height 5 ft 4 in Weight 188 lb BMI 32.3 BP 130/60 Blood Pressure Location Rt brachial Position Sitting Pulse 92 Pulse Source Pulse Oximeter Pulse Oximetry (%) 98 Oxygen Delivery Method Room Air Intake Visit Reasons: Follow Up~ Allergies Penicillins [PCN] Allergy (Mild, Verified 08/25/23 13:26) RASH Medication List - Last Reconciled 08/25/23 by León Cannon MD [updraft machine As directed] albuterol sulfate 0.63 mg (3 mL) inhalation QID PRN albuterol sulfate 90 mcg/actuation (ProAir HFA) 1 inh inhalation QID PRN 30 days allopurinol 100 mg PO DAILY aspirin 81 mg PO DAILY atenolol 50 mg PO DAILY atorvastatin 40 mg PO DAILY benzonatate 100 mg PO BID PRN 7 days clopidogrel 75 mg PO DAILY doxycycline hyclate 100 mg PO BID 7 days ferrous sulfate 325 mg PO DAILY glipizide 5 mg PO BID lisinopril 10 mg PO DAILY 90 days ondansetron 4 mg PO Q8H 3 days oxycodone 5 mg PO BID PRN 15 days prednisone 20 mg PO DAILY 7 days Tobacco use date assessed: 08/25/23 Fall risk assessment: No Falls in past year Last assessed Fall Risk: 08/25/23 Dental Screening Dental Screen Date: 08/25/23 Did you have a dental visit in the last 12 months?: No Did you have a dental problem in the last 6 months where you did not have access to dental care?: No Was dental information given to patient?: Patient has dentist HPI Follow Up~ HPI Details Patient is 83-year-old female she had COVID in June ended up having pneumonia Patient was evaluated in emergency room she had a right-sided infiltrate, she is feeling better now we will be repeating chest x-ray to follow-up on that History of aortic valve replacement patient is on blood thinners she has appointment coming up with Cardiology next month She have Chronic anemia which is stable most likely secondary to nephropathy Patient was seeing a Nephrology Dr. Em, who has retired. We will continue to monitor kidney functions and anemia Blood pressure is stable, patient is on atenolol 50 mg and lisinopril 10 mg Patient is also diabetic taking glipizide 5 mg b.i.d. hemoglobin A1c is stable Chronic back pain: I have sent 30 tablet of Percocet for her chronic lower back pain patient is taking it very sparingly Patient has already seen [facility] and procedure was recommended but now that patient is on blood thinners it is on hold BMI is elevated patient is having difficulty losing weight Follow-up 3 months COUNT INCLUDES THE [facility] Medical History Pre-op evaluation Chest discomfort Viral syndrome Fall Encounter for general adult medical examination with abnormal findings Shortness of breath Hip pain, right Right leg pain Tracheobronchitis Hypertension, essential Spondylosis of lumbosacral spine with radiculopathy Elevated uric acid in blood Anxiety, generalized 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, managed as type 2 Surgical History Hx of cardiac cath History of tonsillectomy History of left cataract surgery History of hysterectomy History of cholecystectomy Family History Father Diabetes Hypertension Mother Diabetes Breast cancer Colon cancer Social History Housing: House Alcohol intake: current Alcohol intake frequency: holidays/special occasions only Patient Tobacco Use Status: Never used Tobacco e-Cigarette/Vaping Use: Never Used service: No Current occupational status: retired Cognitive needs: No Hearing needs: No Vision needs: No Questionnaire PHQ-9 Over the last 2 weeks, how often have you been bothered by any of the following problems? 1. Little interest or pleasure in doing things: not at all 2. Feeling down, depressed, or hopeless: not at all 3. Trouble falling or staying asleep, or sleeping too much: not at all 4. Feeling tired or having little energy: not at all 5. Poor appetite or overeating: not at all 6. Feeling bad about yourself - or that you are a failure or have let yourself or your family down: not at all 7. Trouble concentrating on things, such as reading the newspaper or watching television: not at all 8. Moving or speaking so slowly that other people could have noticed. Or the opposite - being so fidgety or restless that you have been moving around a lot more than usual: not at all 9. Thoughts that you would be better off or of hurting yourself in some way: not at all Total score: 0 Depression Screening Interpretation: Negative Depression Screening Done: Yes 61414 - PHQ-9 Billing: Yes Source: Developed by Drs. Davis Clark, Molly Weems, Timothy Guillen and colleagues, with an educational margie from [employer]. Thrive Questionnaire Date Thrive assessed: 06/08/22 AUDIT C Alcohol Use Questionnaire (AUDIT-C) 1. How often do you have a drink containing alcohol?: Never 3. How often do you have six or more drinks on one occasion?: Never Total Score: 0 Score Reviewed/Action Taken: Yes KAYLA-7 AMB Questionnaire KAYLA-7 Date KAYLA - 7 assessed: 08/25/23 Feeling nervous, anxious, or on edge: 0 = Not at all Not being able to stop or control worryin = Not at all Worrying too much about different things: 1 = Several days Trouble relaxin = Not at all Being so restless that it is hard to sit still: 0 = Not at all Becoming easily annoyed or irritable: 0 = Not at all Feeling afraid as if something awful might happen: 0 = Not at all Total KAYLA-7 score (0-4 normal; 5-9 mild; 10-14 moderate; 15-21 severe): 1 Source: Developed by Drs. Davis Clark, Molly Weems, Timothy Guillen and colleagues, with an educational margie from [employer]. KAYLA-7 Assessment Billing KAYLA-7 Assessment Tool: KAYLA-7 Assessment 75564 Review of Systems Const Denies chills and Denies fever(s) ENT Denies epistaxis and Denies nasal discharge Card Denies chest pain Resp Denies chest congestion, Denies cough and Denies hemoptysis GI Denies diarrhea and Denies nausea Skin/Breast Denies rash Neuro Reports no additional complaints Psych Reports no additional complaints Endo Reports no additional complaints Physical exam (Primary Care) Vital Signs: Last Vital Signs Pulse 92 08/25/23 13:34 BP 130/60 08/25/23 13:34 Pulse Ox 98 08/25/23 13:34 Oxygen Delivery Method Room Air 08/25/23 13:34 BMI result Body Mass Index 32.3 Tobacco/Smoking Status: Tobacco use Status Tobacco use date assessed 08/25/23 08/25/23 13:27 Patient Tobacco Use Status Never used Tobacco 08/25/23 13:27 e-Cigarette/Vaping Use Never Used 08/25/23 13:27 PHQ-9: PHQ-9 Score PHQ-9: Total score 0 08/25/23 14:07 Depression Screening Interpretation: Negative Thrive Assessment: Date of Thrive Assessment Date Thrive assessed 06/08/22 08/25/23 13:27 Const General: cooperative, comfortable and no acute distress Orientation/consciousness: patient oriented x3 HENMT Head: Yes normocephalic Eyes General: appearance normal, both eyes and all related structures Neck Neck: Yes supple Resp Effort & Inspection: normal respiratory effort, no cough and no stridor Cardio Heart sounds: S1 normal heart sound present and S2 normal heart sound present Skin General skin exam: turgor normal Neuro General: patient oriented x3, tone normal and moves all extremities Extrem Right lower extremity: no edema Left lower extremity: no edema Assessment and Plan Assessment & Plan (1) Pneumonia: Code(s): J18.9 - Pneumonia, unspecified organism Qualifiers: Pneumonia type: due to COVID-19 virus Qualified Code(s): U07.1 - COVID- 19; J12.82 - Pneumonia due to coronavirus disease 2019 (2) Diabetes 1.5, managed as type 2: Code(s): E13.9 - Other specified diabetes mellitus without complications (3) Nephropathy: Code(s): N28.9 - Disorder of kidney and ureter, unspecified (4) Arthrosis: Code(s): M19.90 - Unspecified osteoarthritis, unspecified site (5) Anxiety, generalized: Code(s): F41.1 - Generalized anxiety disorder (6) Hypertension, essential: Code(s): I10 - Essential (primary) hypertension (7) S/P aortic valve replacement with bioprosthetic valve: Comment: 03/30/2023, TAVR Dr. 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: Code(s): Z92.29 - Personal history of other drug therapy (9) Obesity due to excess calories: Code(s): E66.09 - Other obesity due to excess calories Qualifiers: Body mass index: BMI 32.0-32.9 Obesity classification: adult class 1 (BMI 30 - 34.9) Serious obesity comorbidity presence: with serious comorbidity Qualified Code(s): E66.09 - Other obesity due to excess calories; Z68.32 - Body mass index [BMI] 32.0-32.9, adult (10) Kidney disease, chronic, stage III (GFR 30-59 ml/min): Code(s): N18.30 - Chronic kidney disease, stage 3 unspecified (11) Hyperparathyroidism due to renal insufficiency: Code(s): N25.81 - Secondary hyperparathyroidism of renal origin (12) Type 2 diabetes mellitus with unspecified complications: Code(s): E11.8 - Type 2 diabetes mellitus with unspecified complications Plan Patient is 83-year-old female she had COVID in June ended up having pneumonia Patient was evaluated in emergency room she had a right-sided infiltrate, she is feeling better now we will be repeating chest x-ray to follow-up on that History of aortic valve replacement patient is on blood thinners she has appointment coming up with Cardiology next month She have Chronic anemia which is stable most likely secondary to nephropathy Patient was seeing a Nephrology Dr. Em, who has retired. We will continue to monitor kidney functions and anemia Blood pressure is stable, patient is on atenolol 50 mg and lisinopril 10 mg Patient is also diabetic taking glipizide 5 mg b.i.d. hemoglobin A1c is stable Chronic back pain: I have sent 30 tablet of Percocet for her chronic lower back pain patient is taking it very sparingly Patient has already seen [facility] and procedure was recommended but now that patient is on blood thinners it is on hold BMI is elevated patient is having difficulty losing weight Follow-up 3 months Orders: Orders Hemoglobin A1c 3 Months E11.8 - Type 2 diabetes mellitus with unspecified complications, E13.9 - Other specified diabetes mellitus without complications, E66.09 - Other obesity due to excess calories, N18.30 - Chronic kidney disease, stage 3 unspecified, N25.81 - Secondary hyperparathyroidism of renal origin, N28.9 - Disorder of kidney and ureter, unspecified Microalbumin, Random (w Creat) Today E11.8 - Type 2 diabetes mellitus with unspecified complications, E13.9 - Other specified diabetes mellitus without complications, E66.09 - Other obesity due to excess calories, N18.30 - Chronic kidney disease, stage 3 unspecified, N25.81 - Secondary hyperparathyroidism of renal origin, N28.9 - Disorder of kidney and ureter, unspecified XR chest 2V Today J18.9 - Pneumonia, unspecified organism Complete Blood Count Auto Diff 3 Months E11.8 - Type 2 diabetes mellitus with unspecified complications, E13.9 - Other specified diabetes mellitus without complications, E66.09 - Other obesity due to excess calories, N18.30 - Chronic kidney disease, stage 3 unspecified, N25.81 - Secondary hyperparathyroidism of renal origin, N28.9 - Disorder of kidney and ureter, unspecified Comprehensive Met. Panel 3 Months E11.8 - Type 2 diabetes mellitus with unspecified complications, E13.9 - Other specified diabetes mellitus without complications, E66.09 - Other obesity due to excess calories, N18.30 - Chronic kidney disease, stage 3 unspecified, N25.81 - Secondary hyperparathyroidism of renal origin, N28.9 - Disorder of kidney and ureter, unspecified Medications: Refilled oxycodone 5 mg PO BID PRN 30 tabs 0RF pain 15 days Discontinued benzonatate Discontinued Reason: Doctor's Order 100 mg PO BID 7 days PRN 14 caps 0RF cough Coding Level of Care Code Est Pt Level 4 (19897) Diagnoses Pneumonia due to COVID-19 virus U07.1; J12.82 Pneumonia type: due to COVID-19 virus Diabetes 1.5, managed as type 2 E13.9 Nephropathy N28.9 Arthrosis M19.90 Anxiety, generalized F41.1 Hypertension, essential I10 S/P aortic valve replacement with bioprosthetic valve Z95.3 Hx of fpc use of blood thinners Z92.29 Class 1 obesity due to excess calories with serious comorbidity and body mass index (BMI) of 32.0 to 32.9 in adult E66.09; Z68.32 Body mass index: BMI 32.0-32.9 Obesity classification: adult class 1 (BMI 30 - 34.9) Serious obesity comorbidity presence: with serious comorbidity Kidney disease, chronic, stage III (GFR 30-59 ml/min) N18.30 Hyperparathyroidism due to renal insufficiency N25.81 Type 2 diabetes mellitus with unspecified complications E11.8 Additional Codes KAYLA-7 Assessment Billing - KAYLA-7 Assessment Tool: KAYLA-7 Assessment [id number] ([id number])
[2023-08-25 13:34] VITALS: BP 130/60; PULSE 92; O2SAT 98; BMI 32.3
== END 2023-08-25 13:58 | disposition home or self-care (01) ==
LOC: HO.HMGC 13:24
PROVIDERS: PCP Internal Medicine; Visit Provider Internal Medicine
DX: U07.1 COVID-19 (principal); E13.9 Other specified diabetes mellitus without complications; N18.30 Chronic kidney disease, stage 3 unspecified; J12.82 Pneumonia due to coronavirus disease 2019; N28.9 Disorder of kidney and ureter, unspecified; M19.90 Unspecified osteoarthritis, unspecified site; F41.1 Generalized anxiety disorder; I10 Essential (primary) hypertension; Z95.3 Presence of xenogenic heart valve; Z92.29 Personal history of other drug therapy; E66.09 Other obesity due to excess calories; Z68.32 Body mass index [BMI] 32.0-32.9, adult
CPT/HCPCS: 99214

== ENCOUNTER 2023-08-25 14:00 | Outpatient (REF) | payer MEDICARE, SELFPAY ==
--- NOTE | ~2023-08-25 | XR_ITS ---
EXAMINATION: XR CHEST CLINICAL INFORMATION: Pneumonia. COMPARISON: Chest 07/26/2023 TECHNIQUE: 2 views of the chest were obtained. FINDINGS: The lungs are well-expanded with linear stranding right midlung likely thickening of minor fissure and/or atelectasis. Heart size and pulmonary vascularity is normal. There is a aortic valve stent in place. No gross bony abnormality seen. XR/XR chest 2V IMPRESSION: 1. Linear stranding right midlung likely thickening of minor fissure and/or atelectasis. 2. Aortic valve stent in place, stable
[2023-08-25 16:08] LABS: MANUAL DIFF FLAG NO
[2023-08-25 16:11] LABS: Basophils Percent Auto 0.4 % (0-2); Eosinophils Absolute Auto 0.2 X10*3/uL (0.0-0.4); Eosinophils Percent Auto 4.2 % (0-4); Hematocrit 32.9 % (37.0-47.0); Hemoglobin 10.3 g/dl (12.0-16.0); Imm Gran Abs Auto 0.01 X10*3/uL (0.00-0.03); Imm Gran Pct Auto 0.2 % (0.0-0.4); Lymphocytes Absolute Auto 1.6 X10*3/uL (1.2-4.9); Lymphocytes Percent Auto 29.5 % (20-40); Mean Corpuscular HGB Conc 31.3 g/dl (31.0-35.0); Mean Corpuscular Hemoglobin 31.8 pg (27.0-33.0); Mean Corpuscular Volume 101.5 fL (80.0-98.0); Mean Platelet Volume 9.6 fL (9.4-12.3); Monocytes Absolute Auto 0.5 X10*3/uL (0.1-1.2); Monocytes Percent Auto 9.1 % (2-11); Neutrophils Percent Auto 56.6 % (45-73); Platelet Count 192 X10*3/uL (160-400); Red Blood Count 3.24 X10*6/uL (4.20-5.50); Red Cell Distribution Width 14.5 % (11.0-16.0); White Blood Count 5.3 X10*3/uL (4.8-10.8)
[2023-08-25 16:21] LABS: Alanine Aminotransferase 13 U/L (0-31); Albumin Level 3.9 g/dL (3.5-5.0); Alkaline Phosphatase 70 U/L (39-117); Anion Gap 13 (12-20); Aspartate Amino Transferase 18 U/L (5-31); Bilirubin Total 0.5 mg/dL (0.0-1.0); Blood Urea Nitrogen 30 mg/dL (9-16); Calcium 9.7 mg/dL (8.4-10.2); Carbon Dioxide 20 mmol/L (22-29); Chloride 112 mmol/L (96-108); Estimated Glomerular Filt Rate 34; Glucose Random 210 mg/dL (60-115); Potassium 5.3 mmol/L (3.3-5.1); Sodium 140 mmol/L (135-145); Total Protein 6.9 g/dL (6.5-8.0)
[2023-08-25 16:23] LABS: Estimated Average Glucose 197 mg/dL; Hemoglobin A1c % 8.5 % (<6.0)
== END 2023-08-25 14:01 | disposition home or self-care (01) ==
LOC: HO.HMGCX 14:00
PROVIDERS: PCP Internal Medicine; Visit Provider Internal Medicine
DX: J18.9 Pneumonia, unspecified organism (principal); I10 Essential (primary) hypertension; E13.9 Other specified diabetes mellitus without complications
CPT/HCPCS: 36415; 71046; 80053; 83036; 85025

== ENCOUNTER 2023-09-26 10:37 | Outpatient (AMB) | payer MEDICARE, SELFPAY ==
--- NOTE | 2023-09-26 10:45 | A.OFFVIS_ITS ---
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 Accompanied by: Self / Same As Patient Allergies Penicillins [PCN] Allergy (Mild, Verified 09/26/23 10:47) RASH Medication List - Last Reconciled 09/26/23 by Casey Richardson MD [updraft machine As directed] albuterol sulfate 0.63 mg (3 mL) inhalation QID PRN albuterol sulfate 90 mcg/actuation (ProAir HFA) 1 inh inhalation QID PRN 30 days allopurinol 100 mg PO DAILY aspirin 81 mg PO DAILY atenolol 50 mg PO DAILY atorvastatin 40 mg PO DAILY clopidogrel 75 mg PO DAILY ferrous sulfate 325 mg PO DAILY glipizide 2 tabs in am, 1 tab in pm orally 2 times a day; lisinopril 10 mg PO DAILY 90 days ondansetron 4 mg PO Q8H 3 days oxycodone 5 mg PO BID PRN 15 days HPI HPI Comments History of Present Illness Details Sherry returns for follow-up. To recall, she was originally seen about 5 years ago. At that time, she had aortic valve calcification. She returned last year stating that she had difficulty breathing as well as chest pressure. Also some chest pressure but not Subsequently, she underwent workup. Echocardiogram with moderate to severe aortic stenosis. Then underwent cardiac catheterization and underwent LAD/circumflex stenting on 2 different occasions. She still had residual shortness of breath and that led to TAVR this year. Now, she states she is actually feeling pretty good. No new symptoms. 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, managed as type 2 Surgical History (Updated 09/26/23 @ 10:54 by Casey Richardson MD) Status post transcatheter aortic valve replacement (TAVR) using bioprosthesis Hx of cardiac cath History of tonsillectomy History of left cataract surgery History of hysterectomy History of cholecystectomy Family History Father Diabetes Hypertension Mother Diabetes Breast cancer Colon cancer Housing: House Alcohol intake: current Alcohol intake frequency: holidays/special occasions only Patient Tobacco Use Status: Never used Tobacco e-Cigarette/Vaping Use: Never Used service: No Current occupational status: retired Cognitive needs: No Hearing needs: No Vision needs: No Review of Systems Const Denies weakness ENT Denies dizziness Card Denies chest pain, Denies chest pain with activity, Denies syncope, Denies rapid heart rate, Denies pedal edema, Denies edema, Denies leg edema, Denies lightheadedness, Denies palpitations, Denies dyspnea, Denies dyspnea on exertion and Denies orthopnea Resp Denies cough, Denies dyspnea and Denies dyspnea on exertion GI Denies hematochezia and Denies change in stool character Musc Denies abnormal gait, Denies muscle cramps, Denies muscle weakness, Denies numbness, Denies radiating pain into limb and Denies tingling Neuro Denies abnormal gait, Denies dizziness, Denies syncope, Denies numbness, Denies tingling and Denies weakness Endo Denies palpitations Physical Exam Vital Signs: Last Vital Signs Pulse 81 09/26/23 10:46 BP 164/76 H 09/26/23 10:46 BMI result Body Mass Index 33.1 Const General: comfortable and no acute distress Orientation/consciousness: patient oriented x3 HEENT Other: Unremarkable Head: Yes normal to inspection Neck Neck: Yes normal visual inspection Chest Chest palpation & inspection: normal inspection of the chest Resp Auscultation: clear to auscultation bilaterally Cardio Palpation: normal PMI Heart sounds: S1 normal heart sound present, S2 normal heart sound present, no gallops, Murmur heart sound present systolic II/ and at the right sternal border and no rubs GI Palpation (GI): Soft to palpation Back/Spine/Pelvis Other: unremarkable Skin General skin exam: no rashes or lesions noted Neuro General: patient oriented x3 Extrem General: Yes normal to inspection Psych Mental Status: mental status grossly normal Office Procedures EKG Details: EKG with sinus rhythm at 81/Min; AL prolongation 230 millisecond; slight QTc prolongation to [address]-T changes. In the past, she has had QT prolongation as well. [id number], Complete Assessment & Plan Assessment & Plan (1) Status post transcatheter aortic valve replacement (TAVR) using bioprosthesis: Code(s): Z95.3 - Presence of xenogenic heart valve Plan: In the most recent echocardiogram, normal function TAVR valve. No significant regurgitation. May take infective endocarditis prophylaxis before dental procedures. (2) Atherosclerotic cardiovascular disease: Code(s): I25.10 - Atherosclerotic heart disease of [place] coronary artery without angina pectoris Plan: Status post LAD as left circumflex stenting. May remain on aspirin but stop the Plavix. Patient has undergone LAD as well as circumflex stenting. Lipids have been requested many times and still pending. (3) Essential hypertension: Code(s): I10 - Essential (primary) hypertension Plan: On atenolol as well as lisinopril. She already has CKD as well as hyperkalemia. Blood pressure on the higher side. Will refer to Nephrology as well. We may rather use amlodipine or nifedipine if hyperkalemia is a chronic issue. (4) Prolonged QT interval: Code(s): R94.31 - Abnormal electrocardiogram [ECG] [EKG] Plan: Avoid QT prolonging drugs. 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 Blakely. Orders: Referrals Nephrology Referral N18.30 - Chronic kidney disease, stage 3 unspecified Medications: Discontinued clopidogrel Discontinued Reason: Doctor's Order 75 mg PO DAILY 90 tabs 3RF Coding Level of Care Code Est Pt Level 4 (42364) Diagnoses Status post transcatheter aortic valve replacement (TAVR) using bioprosthesis Z95.3 Atherosclerotic cardiovascular disease I25.10 Essential hypertension I10 Prolonged QT interval R94.31 Kidney disease, chronic, stage III (GFR 30-59 ml/min) N18.30 CPT Codes EKG - CPT: 06134-[id number], Complete ([id number])
[2023-09-26 10:46] VITALS: BP 164/76; PULSE 81; BMI 33.1
== END 2023-09-26 11:07 | disposition home or self-care (01) ==
PROVIDERS: PCP Internal Medicine; Visit Provider Internal Medicine
DX: Z95.3 Presence of xenogenic heart valve (principal); I25.10 Atherosclerotic heart disease of native coronary artery without angina pectoris; I10 Essential (primary) hypertension; R94.31 Abnormal electrocardiogram [ECG] [EKG]; N18.30 Chronic kidney disease, stage 3 unspecified
CPT/HCPCS: 93010; 99214

== ENCOUNTER → 2023-09-26 10:37 | Outpatient (BNVA) | payer MEDICARE, SELFPAY | PROVIDERS: PCP Internal Medicine; Visit Provider Internal Medicine | DX: I44.0 Atrioventricular block, first degree (principal); I25.10 Atherosclerotic heart disease of native coronary artery without angina pectoris; I12.9 Hypertensive chronic kidney disease with stage 1 through stage 4 chronic kidney disease, or unspecified chronic kidney disease; N18.30 Chronic kidney disease, stage 3 unspecified; R94.31 Abnormal electrocardiogram [ECG] [EKG]; Z98.890 Other specified postprocedural states; Z95.3 Presence of xenogenic heart valve; Z79.891 Long term (current) use of opiate analgesic | CPT/HCPCS: 93005; 99212 ==

== ENCOUNTER → 2023-10-02 12:02 | Outpatient (BNVA) | payer MEDICARE, SELFPAY | PROVIDERS: PCP Internal Medicine; Visit Provider Internal Medicine Hypertension Specialist | DX: I12.9 Hypertensive chronic kidney disease with stage 1 through stage 4 chronic kidney disease, or unspecified chronic kidney disease (principal); N18.32 Chronic kidney disease, stage 3b; D64.9 Anemia, unspecified; E87.5 Hyperkalemia; I25.10 Atherosclerotic heart disease of native coronary artery without angina pectoris | CPT/HCPCS: 99202 ==

== ENCOUNTER 2023-10-02 12:11 | Outpatient (AMB) | payer MEDICARE, SELFPAY ==
[2023-10-02 12:06] VITALS: BP 160/78; PULSE 78; O2SAT 96; BMI 33.1
--- NOTE | 2023-10-02 12:06 | HO.NEPHOV_ITS ---
HPI HPI Comments History of Present Illness Details Lorena Cloud is an 83-year-old female with a history of hypertension, diabetes, hyperlipidemia, first-degree AV block, CAD status post 2 cardiac catheterization with stent placements, severe aortic stenosis with recent TAVR She has stage IIIB CKD. Her baseline serum creatinine has been around 1.4-1.7 mg/dL. He was being followed by Dr. Moshe Em. 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 From renal standpoint she has no specific complaints. She had missed readings high salt diet. She does not take any NSAIDs or Ortez 2 inhibitors. She continues have shortness of breath on exertion. No change in weight. She has leg edema. No urinary symptoms. 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, managed as type 2 Surgical History Status post transcatheter aortic valve replacement (TAVR) using bioprosthesis Hx of cardiac cath History of tonsillectomy History of left cataract surgery History of hysterectomy History of cholecystectomy Family History Father Diabetes Hypertension Mother Diabetes Breast cancer Colon cancer Social History Housing: House Alcohol intake: current Alcohol intake frequency: holidays/special occasions only Patient Tobacco Use Status: Never used Tobacco e-Cigarette/Vaping Use: Never Used service: No Current occupational status: retired Cognitive needs: No Hearing needs: No Vision needs: No Vital Signs 10/02/23 12:06 Height 5 ft 4 in Weight 193 lb BMI 33.1 BP 160/78 H Blood Pressure Location Rt brachial Position Sitting Pulse 78 Pulse Source Pulse Oximeter Pulse Oximetry (%) 96 Oxygen Delivery Method Room Air Physical Exam Vital Signs: Last Vital Signs Pulse 78 10/02/23 12:06 BP 160/78 H 12/04/23 12:06 Pulse Ox 96 10/02/23 12:06 Oxygen Delivery Method Room Air 10/02/23 12:06 BMI result Body Mass Index 33.1 Const General: comfortable; No acute distress Orientation/consciousness: patient oriented x3 Eyes General: appearance normal, both eyes and all related structures Visual Smith: normal visual smith by confrontation Neck Neck: Yes supple and Yes no JVD Resp Effort & Inspection: normal respiratory effort and respiratory effort not decreased Auscultation: rhonchi Cardio Palpation: no palpable S3 and no palpable S4 Heart sounds: no rubs GI Inspection: Yes normal to inspection Palpation (GI): Soft to palpation Percussion: Yes normal to percussion Auscultation: normal bowel sounds General: Yes no CVA tenderness Back/Spine/Pelvis Back: no CVA tenderness Skin General skin exam: no petechiae and no purpura Neuro General: patient oriented x3 and no focal motor deficits Extrem General: No clubbing and Yes edema Assessment & Plan Assessment & Plan (1) Kidney disease, chronic, stage III (GFR 30-59 ml/min): Code(s): N18.30 - Chronic kidney disease, stage 3 unspecified Qualifiers: Chronic kidney disease stage 3 subtype: stage 3b (GFR 30-44) Qualified Code(s): N18.32 - Chronic kidney disease, stage 3b Plan: Sherry has stable CKD stage IIIB unit setting of longstanding hypertension diabetes mellitus obesity and coronary disease. In the past she did not have any significant proteinuria. She probably does not have overt diabetic nephropathy. Renal function is relatively stable. Goal is to slow the progression of renal disease. Maintain blood pressure less than 130/80 Maintain hemoglobin A1c less than 7% Continue with Marcio inhibitors for renal protection. She might benefit from SGLT 2 inhibitors. (2) Essential hypertension: Code(s): I10 - Essential (primary) hypertension Plan: Blood pressure is suboptimal. Discussed weight loss. She should stay on low-sodium diet which I explained to her. Given the fact that she has some edema , I have added a low-dose of loop diuretic - Lasix 20 mg daily which should help to lower total body water and a lso help to correct hyperkalemia. 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 No absolute indication for erythropoietin injections. Show follow hemoglobin closely (4) Hyperkalemia: Code(s): E87.5 - Hyperkalemia Plan: From the combination of CKD and continued use of MARCIO-inhibitor. Discussed low-potassium diet. By adding Lasix as mentioned above serum potassium should decrease. She will recheck again (5) CAD (coronary artery disease): Comment: 05/24/22 Prox LAD 70% stenosis and MIL placed, Mid LCx 70% stenosis, planned for staged PCI, AV mean gradiant 28mmhg; 03/30/2023, TAVR Dr. Dockery Code(s): I25.10 - Atherosclerotic heart disease of [place] coronary artery without angina pectoris Qualifiers: Coronary Disease-Associated Artery/Lesion type: unspecified vessel or lesion type Plan: As per Cardiology Orders: Orders Electrolytes 3 Weeks D64.9 - Anemia, unspecified, I10 - Essential (primary) hypertension, N18.30 - Chronic kidney disease, stage 3 unspecified Blood Urea Nitrogen 3 Weeks D64.9 - Anemia, unspecified, I10 - Essential (primary) hypertension, N18.30 - Chronic kidney disease, stage 3 unspecified Creatinine 3 Weeks D64.9 - Anemia, unspecified, I10 - Essential (primary) hypertension, N18.30 - Chronic kidney disease, stage 3 unspecified Calcium 3 Weeks D64.9 - Anemia, unspecified, I10 - Essential (primary) hypertension, N18.30 - Chronic kidney disease, stage 3 unspecified Total Protein Urine Random 3 Weeks D64.9 - Anemia, unspecified, I10 - Essential (primary) hypertension, N18.30 - Chronic kidney disease, stage 3 unspecified Parathyroid Hormone Intact 3 Weeks D64.9 - Anemia, unspecified, I10 - Essential (primary) hypertension, N18.30 - Chronic kidney disease, stage 3 unspecified Creatinine Urine 3 Weeks D64.9 - Anemia, unspecified, I10 - Essential (primary) hypertension, N18.30 - Chronic kidney disease, stage 3 unspecified UA and rflx microscopic 3 Weeks D64.9 - Anemia, unspecified, I10 - Essential (primary) hypertension, N18.30 - Chronic kidney disease, stage 3 unspecified Medications: New furosemide (Lasix) 20 mg PO DAILY 30 tabs 1RF Coding Level of Care Code New Pt Level 5 (69812) Diagnoses Stage 3b chronic kidney disease N18.32 Chronic kidney disease stage 3 subtype: stage 3b (GFR 30-44) Essential hypertension I10 Anemia D64.9 Anemia type: due to chronic kidney disease Chronic kidney disease stage 3 subtype: stage 3b (GFR 30-44) Hyperkalemia E87.5 CAD (coronary artery disease) I25.10 Coronary Disease-Associated Artery/Lesion type: unspecified vessel or lesion type Results Reviewed Nephrology Results: Hgb 10.3 g/dl (12.0-16.0) L 08/25/23 WBC 5.3 X10*3/uL (4.8-10.8) 08/25/23 Plt Count 192 X10*3/uL (160-400) 08/25/23 Sodium 140 mmol/L (135-145) 08/25/23 Potassium 5.3 mmol/L (3.3-5.1) H 08/25/23 Chloride 112 mmol/L (96-108) H 08/25/23 Carbon Dioxide 20 mmol/L (22-29) L 08/25/23 BUN 30 mg/dL (9-16) H 08/25/23 Creatinine 1.46 mg/dL (0.5-1.4) H 08/25/23 Calcium 9.7 mg/dL (8.4-10.2) 08/25/23
== END 2023-10-02 12:30 | disposition home or self-care (01) ==
PROVIDERS: PCP Internal Medicine; Visit Provider Internal Medicine Hypertension Specialist
DX: E11.22 Type 2 diabetes mellitus with diabetic chronic kidney disease (principal); N18.32 Chronic kidney disease, stage 3b; I12.9 Hypertensive chronic kidney disease with stage 1 through stage 4 chronic kidney disease, or unspecified chronic kidney disease; D63.1 Anemia in chronic kidney disease; E87.5 Hyperkalemia; I25.10 Atherosclerotic heart disease of native coronary artery without angina pectoris
CPT/HCPCS: 99205

== ENCOUNTER 2023-10-27 12:13 | Outpatient (REF) | payer MEDICARE, SELFPAY ==
[2023-10-27 13:21] LABS: MANUAL DIFF FLAG NO
[2023-10-27 13:39] LABS: Basophils Percent Auto 0.6 % (0-2); Eosinophils Absolute Auto 0.1 X10*3/uL (0.0-0.4); Eosinophils Percent Auto 2.6 % (0-4); Hematocrit 32.9 % (37.0-47.0); Hemoglobin 10.5 g/dl (12.0-16.0); Imm Gran Abs Auto 0.01 X10*3/uL (0.00-0.03); Imm Gran Pct Auto 0.2 % (0.0-0.4); Lymphocytes Absolute Auto 1.4 X10*3/uL (1.2-4.9); Lymphocytes Percent Auto 25.9 % (20-40); Mean Corpuscular HGB Conc 31.9 g/dl (31.0-35.0); Mean Corpuscular Hemoglobin 32.5 pg (27.0-33.0); Mean Corpuscular Volume 101.9 fL (80.0-98.0); Mean Platelet Volume 9.9 fL (9.4-12.3); Monocytes Absolute Auto 0.5 X10*3/uL (0.1-1.2); Monocytes Percent Auto 9.2 % (2-11); Neutrophils Absolute Auto 3.3 x10*3/uL (2.0-8.3); Neutrophils Percent Auto 61.5 % (45-73); Platelet Count 177 X10*3/uL (160-400); Red Blood Count 3.23 X10*6/uL (4.20-5.50); Red Cell Distribution Width 13.9 % (11.0-16.0); White Blood Count 5.3 X10*3/uL (4.8-10.8)
[2023-10-27 13:43] LABS: Appearance Urine Cloudy; Color Urine Yellow; Glucose Urine UA Negative (Negative); Leukocyte Esterase Urine Moderate (2+) (Negative); Nitrite Urine Negative (Negative); PH 5.5 (5.0-9.0); Specific Gravity - Urine 1.015 (1.005-1.025); UMIC TRIGGER UA YES; Urine Blood Negative (Negative); Urine Ketones Negative (Negative); Urine Protein 30 (1+) mg/dL (Neg-Trace)
[2023-10-27 13:46] LABS: Bacteria Urine 3+ (None Seen); Hyaline Casts Urine 0-2 /LPF (0-2); RBC Urine 0-2 /HPF (0-2)
[2023-10-27 13:53] LABS: Estimated Average Glucose 183 mg/dL
[2023-10-27 14:04] LABS: Parathyroid Hormone Intact 257.5 pg/mL (8.7-77.1)
[2023-10-27 14:12] LABS: Alanine Aminotransferase 11 U/L (0-31); Alkaline Phosphatase 69 U/L (39-117); Anion Gap 13 (12-20); Aspartate Amino Transferase 14 U/L (5-31); Bilirubin Total 0.5 mg/dL (0.0-1.0); Blood Urea Nitrogen 49 mg/dL (9-16); Carbon Dioxide 21 mmol/L (22-29); Chloride 113 mmol/L (96-108); Estimated Glomerular Filt Rate 28; Glucose Random 206 mg/dL (60-115); Potassium 4.6 mmol/L (3.3-5.1); Sodium 142 mmol/L (135-145); Total Protein 6.9 g/dL (6.5-8.0)
[2023-10-27 14:15] LABS: Creatinine Urine 98.15 mg/dL; Total Protein Urine Random 27 mg/dL (<12)
== END 2023-10-27 12:14 | disposition home or self-care (01) ==
LOC: HO.HMGCLDS 12:13
PROVIDERS: PCP Internal Medicine; Referring Provider Internal Medicine Hypertension Specialist; Visit Provider Internal Medicine
DX: E11.8 Type 2 diabetes mellitus with unspecified complications (principal); I10 Essential (primary) hypertension; N28.9 Disorder of kidney and ureter, unspecified; N18.30 Chronic kidney disease, stage 3 unspecified; N25.81 Secondary hyperparathyroidism of renal origin; E66.09 Other obesity due to excess calories; D64.9 Anemia, unspecified
CPT/HCPCS: 36415; 80053; 81001; 82570; 83036; 83970; 84156; 85025

== ENCOUNTER 2023-11-20 12:04 | Outpatient (AMB) | payer MEDICARE, SELFPAY ==
[2023-11-20 12:10] VITALS: BP 122/62; PULSE 81; O2SAT 99; BMI 32.0
--- NOTE | 2023-11-20 12:10 | HO.NEPHOV ---
HPI HPI Comments History of Present Illness Details Lorena Cloud is an 83-year-old female with a history of hypertension, diabetes, hyperlipidemia, first-degree AV block, CAD status post 2 cardiac catheterization with stent placements, severe aortic stenosis with recent TAVR She has stage IIIB CKD. Her baseline serum creatinine has been around 1.4-1.7 mg/dL. He was being followed by Dr. Moshe Em. 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 From renal standpoint she has no specific complaints. She had missed readings high salt diet. She does not take any NSAIDs or Ortez 2 inhibitors. She continues have shortness of breath on exertion. No change in weight. She has leg edema. No urinary symptoms. 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, managed as type 2 Surgical History Status post transcatheter aortic valve replacement (TAVR) using bioprosthesis Hx of cardiac cath History of tonsillectomy History of left cataract surgery History of hysterectomy History of cholecystectomy Family History Father Diabetes Hypertension Mother Diabetes Breast cancer Colon cancer Social History Housing: House Alcohol intake: current Alcohol intake frequency: holidays/special occasions only Patient Tobacco Use Status: Never used Tobacco e-Cigarette/Vaping Use: Never Used service: No Current occupational status: retired Cognitive needs: No Hearing needs: No Vision needs: No Vital Signs 11/20/23 12:10 Height 5 ft 4 in Weight 186 lb 8 oz BMI 32.0 BP 122/62 Blood Pressure Location Rt brachial Position Sitting Pulse 81 Pulse Source Pulse Oximeter Pulse Oximetry (%) 99 Oxygen Delivery Method Room Air Physical Exam Vital Signs: Last Vital Signs Pulse 81 11/20/23 12:10 BP 122/62 11/20/23 12:10 Pulse Ox 99 11/20/23 12:10 Oxygen Delivery Method Room Air 11/20/23 12:10 BMI result Body Mass Index 32.0 Const General: comfortable; No acute distress Orientation/consciousness: patient oriented x3 Eyes General: appearance normal, both eyes and all related structures Visual Smith: normal visual smith by confrontation Neck Neck: Yes supple and Yes no JVD Resp Effort & Inspection: normal respiratory effort and respiratory effort not decreased Auscultation: rhonchi Cardio Palpation: no palpable S3 and no palpable S4 Heart sounds: no rubs GI Inspection: Yes normal to inspection Palpation (GI): Soft to palpation Percussion: Yes normal to percussion Auscultation: normal bowel sounds General: Yes no CVA tenderness Back/Spine/Pelvis Back: no CVA tenderness Skin General skin exam: no petechiae and no purpura Neuro General: patient oriented x3 and no focal motor deficits Extrem General: No clubbing and Yes edema Assessment & Plan Assessment & Plan (1) Essential hypertension: Code(s): I10 - Essential (primary) hypertension Plan: Blood pressure is better controlled after adding Lasix Discussed weight loss. She should stay on low-sodium diet Potassium normalized after addition of LAsix (2) Kidney disease, chronic, stage III (GFR 30-59 ml/min): Code(s): N18.30 - Chronic kidney disease, stage 3 unspecified Qualifiers: Chronic kidney disease stage 3 subtype: stage 3b (GFR 30-44) Qualified Code(s): N18.32 - Chronic kidney disease, stage 3b Plan: Sherry has stable CKD stage IIIB unit setting of longstanding hypertension diabetes mellitus obesity and coronary disease. In the past she did not have any significant proteinuria. She probably does not have overt diabetic nephropathy. Marginal increase in Creatinine after the addition of Lasix- expected Goal is to slow the progression of renal disease. Maintain blood pressure less than 130/80 Maintain hemoglobin A1c less than 7% Continue with Marcio inhibitors for renal protection. She might benefit from SGLT 2 inhibitors. 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 No absolute indication for erythropoietin injections. Show follow hemoglobin closely (4) Hyperkalemia: Code(s): E87.5 - Hyperkalemia Plan: From the combination of CKD and continued use of MARCIO-inhibitor. Discussed low-potassium diet. K acceptable with LAsix (5) CAD (coronary artery disease): Comment: 05/24/22 Prox LAD 70% stenosis and MIL placed, Mid LCx 70% stenosis, planned for staged PCI, AV mean gradiant 28mmhg; 03/30/2023, TAVR Dr. Dockery Code(s): I25.10 - Atherosclerotic heart disease of [place] coronary artery without angina pectoris Qualifiers: Coronary Disease-Associated Artery/Lesion type: unspecified vessel or lesion type Plan: As per Cardiology (6) Secondary hyperparathyroidism: Code(s): N25.81 - Secondary hyperparathyroidism of renal origin Plan: Added CAlcitriol 0.25 mcg 3 x week Orders: Orders Electrolytes 3 Months I10 - Essential (primary) hypertension, N18.30 - Chronic kidney disease, stage 3 unspecified Blood Urea Nitrogen 3 Months I10 - Essential (primary) hypertension, N18.30 - Chronic kidney disease, stage 3 unspecified Calcium 3 Months I10 - Essential (primary) hypertension, N18.30 - Chronic kidney disease, stage 3 unspecified Parathyroid Hormone Intact 3 Months I10 - Essential (primary) hypertension, N18.30 - Chronic kidney disease, stage 3 unspecified Complete Blood Count no Diff 3 Months I10 - Essential (primary) hypertension, N18.30 - Chronic kidney disease, stage 3 unspecified Creatinine 3 Months I10 - Essential (primary) hypertension, N18.30 - Chronic kidney disease, stage 3 unspecified Medications: New calcitriol 0.25 mcg PO 3XW 30 caps 0RF Coding Level of Care Code Est Pt Level 4 (16478) Diagnoses Essential hypertension I10 Stage 3b chronic kidney disease N18.32 Chronic kidney disease stage 3 subtype: stage 3b (GFR 30-44) Anemia D64.9 Anemia type: due to chronic kidney disease Chronic kidney disease stage 3 subtype: stage 3b (GFR 30-44) Hyperkalemia E87.5 CAD (coronary artery disease) I25.10 Coronary Disease-Associated Artery/Lesion type: unspecified vessel or lesion type Secondary hyperparathyroidism N25.81 Results Reviewed Nephrology Results: Hgb 10.5 g/dl (12.0-16.0) L 12/29/23 WBC 5.3 X10*3/uL (4.8-10.8) 10/27/23 Plt Count 177 X10*3/uL (160-400) 10/27/23 Sodium 142 mmol/L (135-145) 10/27/23 Potassium 4.6 mmol/L (3.3-5.1) 10/27/23 Chloride 113 mmol/L (96-108) H 10/27/23 Carbon Dioxide 21 mmol/L (22-29) L 10/27/23 BUN 49 mg/dL (9-16) H 10/27/23 Creatinine 1.71 mg/dL (0.5-1.4) H 10/27/23 Calcium 9.0 mg/dL (8.4-10.2) 10/27/23 PTH Intact 257.5 pg/mL (8.7-77.1) H 10/27/23 Urine Protein 30 (1+) mg/dL (Neg-Trace) H 10/27/23 Urine Creatinine 98.15 mg/dL 10/27/23
== END 2023-11-20 12:39 | disposition home or self-care (01) ==
PROVIDERS: PCP Internal Medicine; Visit Provider Internal Medicine Hypertension Specialist
DX: I10 Essential (primary) hypertension (principal); N18.32 Chronic kidney disease, stage 3b; D64.9 Anemia, unspecified; E87.5 Hyperkalemia; I25.10 Atherosclerotic heart disease of native coronary artery without angina pectoris; N25.81 Secondary hyperparathyroidism of renal origin
CPT/HCPCS: 99214

== ENCOUNTER → 2023-11-20 12:04 | Outpatient (BNVA) | payer MEDICARE, SELFPAY | PROVIDERS: PCP Internal Medicine; Visit Provider Internal Medicine Hypertension Specialist | DX: I12.9 Hypertensive chronic kidney disease with stage 1 through stage 4 chronic kidney disease, or unspecified chronic kidney disease (principal); N18.32 Chronic kidney disease, stage 3b; D64.9 Anemia, unspecified; E78.5 Hyperlipidemia, unspecified; I25.10 Atherosclerotic heart disease of native coronary artery without angina pectoris; N25.81 Secondary hyperparathyroidism of renal origin | CPT/HCPCS: 99212 ==

== ENCOUNTER 2023-12-20 10:18 | Outpatient (AMB) | payer MEDICARE, SELFPAY ==
[2023-12-20 10:20] VITALS: BP 132/66; PULSE 69; O2SAT 97; BMI 32.1
--- NOTE | 2023-12-20 10:20 | A.OFFPC_ITS ---
Vital Signs 12/20/23 10:20 Height 5 ft 4 in Weight 187 lb BMI 32.1 BP 132/66 Blood Pressure Location Lt brachial Position Sitting Pulse 69 Pulse Source Pulse Oximeter Pulse Oximetry (%) 97 Oxygen Delivery Method Room Air Intake Visit Reasons: Follow Up~ Allergies Penicillins [PCN] Allergy (Mild, Verified 12/20/23 10:20) RASH Medication List - Last Reconciled 12/20/23 by León Cannon MD [updraft machine As directed] albuterol sulfate 90 mcg/actuation (ProAir HFA) 1 inh inhalation QID PRN 30 days albuterol sulfate 0.63 mg (3 mL) inhalation QID PRN allopurinol 100 mg PO DAILY aspirin 81 mg PO DAILY atenolol 50 mg PO DAILY atorvastatin 40 mg PO DAILY calcitriol 0.25 mcg PO 3XW ferrous sulfate 325 mg PO DAILY furosemide 20 mg PO DAILY glipizide 2 tabs in am, 1 tab in pm orally 2 times a day; lisinopril 10 mg PO DAILY 90 days oxycodone 5 mg PO BID PRN 15 days Tobacco use date assessed: 12/20/23 Fall risk assessment: 1 Fall in past year Last assessed Fall Risk: 12/20/23 Dental Screening Dental Screen Date: 12/20/23 Did you have a dental visit in the last 12 months?: No Did you have a dental problem in the last 6 months where you did not have access to dental care?: No Was dental information given to patient?: No HPI Follow Up~ HPI Details Patient is 83-year-old female came in today her regular follow-up appointment Patient has history of aortic valve replacement patient is on blood thinners managed through Cardiology Recently frusemide 20 mg was added She has 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 Em, who has retired. Blood pressure is stable, patient is on atenolol 50 mg and lisinopril 10 mg Patient is also diabetic taking glipizide 5 mg b.i.d. hemoglobin A1c, 8 in September Chronic back pain: I have sent 30 tablet of Percocet for her chronic lower back pain patient is taking it very sparingly Patient has already seen Pain Management [facility] and procedure was recommended but now that patient is on blood thinners it is on hold BMI is elevated patient is having difficulty losing weight Follow-up 3 months labs are needed before visit [facility] Medical History Pre-op evaluation Chest discomfort Viral syndrome Fall Encounter for general adult medical examination with abnormal findings Shortness of breath Hip pain, right Right leg pain Tracheobronchitis Hypertension, essential Spondylosis of lumbosacral spine with radiculopathy Elevated uric acid in blood Anxiety, generalized 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, managed as type 2 Surgical History Status post transcatheter aortic valve replacement (TAVR) using bioprosthesis Hx of cardiac cath History of tonsillectomy History of left cataract surgery History of hysterectomy History of cholecystectomy Family History Father Diabetes Hypertension Mother Diabetes Breast cancer Colon cancer Social History Housing: House Alcohol intake: current Alcohol intake frequency: holidays/special occasions only Patient Tobacco Use Status: Never used Tobacco e-Cigarette/Vaping Use: Never Used service: No Current occupational status: retired Cognitive needs: No Hearing needs: No Vision needs: No Questionnaire Thrive Questionnaire Date Thrive assessed: 06/08/22 AUDIT C Alcohol Use Questionnaire (AUDIT-C) 1. How often do you have a drink containing alcohol?: Never 3. How often do you have six or more drinks on one occasion?: Never Total Score: 0 Score Reviewed/Action Taken: Yes KAYLA-7 AMB Questionnaire KAYLA-7 Date KAYLA - 7 assessed: 08/25/23 Source: Developed by Drs. Davis Clark, Molly Weems, Timothy Guillen and colleagues, with an educational margie from [employer]. Review of Systems Const Denies chills and Denies fever(s) ENT Denies epistaxis and Denies nasal discharge Card Denies chest pain Resp Denies chest congestion, Denies cough and Denies hemoptysis GI Denies diarrhea and Denies nausea Skin/Breast Denies rash Neuro Reports no additional complaints Psych Reports no additional complaints Endo Reports no additional complaints Physical exam (Primary Care) Vital Signs: Last Vital Signs Pulse 69 12/20/23 10:20 BP 132/66 12/20/23 10:20 Pulse Ox 97 12/20/23 10:20 Oxygen Delivery Method Room Air 12/20/23 10:20 BMI result Body Mass Index 32.1 Tobacco/Smoking Status: Tobacco use Status Tobacco use date assessed 12/20/23 12/20/23 10:25 Patient Tobacco Use Status Never used Tobacco 12/20/23 10:23 e-Cigarette/Vaping Use Never Used 12/20/23 10:23 Thrive Assessment: Date of Thrive Assessment Date Thrive assessed 06/08/22 12/20/23 10:23 Const General: cooperative, comfortable and no acute distress Orientation/consciousness: patient oriented x3 HENMT Head: Yes normocephalic Eyes General: appearance normal, both eyes and all related structures Neck Neck: Yes supple Resp Effort & Inspection: normal respiratory effort, no cough and no stridor Cardio Heart sounds: S1 normal heart sound present and S2 normal heart sound present Skin General skin exam: turgor normal Neuro General: patient oriented x3, tone normal and moves all extremities Extrem Right lower extremity: no edema Left lower extremity: no edema Assessment and Plan Assessment & Plan (1) Diabetes 1.5, managed as type 2: Code(s): E13.9 - Other specified diabetes mellitus without complications (2) Anxiety, generalized: Code(s): F41.1 - Generalized anxiety disorder (3) Hypertension, essential: Code(s): I10 - Essential (primary) hypertension (4) S/P aortic valve replacement with bioprosthetic valve: Code(s): Z95.3 - Presence of xenogenic heart valve (5) Hx of senior living use of blood thinners: Code(s): Z92.29 - Personal history of other drug therapy (6) Obesity due to excess calories: Code(s): E66.09 - Other obesity due to excess calories Qualifiers: Body mass index: BMI 32.0-32.9 Obesity classification: adult class 1 (BMI 30 - 34.9) Serious obesity comorbidity presence: with serious comorbidity Qualified Code(s): E66.09 - Other obesity due to excess calories; Z68.32 - Body mass index [BMI] 32.0-32.9, adult (7) Kidney disease, chronic, stage III (GFR 30-59 ml/min): Code(s): N18.30 - Chronic kidney disease, stage 3 unspecified Qualifiers: Chronic kidney disease stage 3 subtype: stage 3b (GFR 30-44) Qualified Code(s): N18.32 - Chronic kidney disease, stage 3b (8) Hyperparathyroidism due to renal insufficiency: Code(s): N25.81 - Secondary hyperparathyroidism of renal origin (9) Type 2 diabetes mellitus with unspecified complications: Code(s): E11.8 - Type 2 diabetes mellitus with unspecified complications (10) Anemia of chronic illness: Code(s): D63.8 - Anemia in other chronic diseases classified elsewhere Plan Patient is 83-year-old female came in today her regular follow-up appointment Patient has history of aortic valve replacement patient is on blood thinners managed through Cardiology Recently frusemide 20 mg was added She has 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 Em, who has retired. Blood pressure is stable, patient is on atenolol 50 mg and lisinopril 10 mg Patient is also diabetic taking glipizide 5 mg b.i.d. hemoglobin A1c, 8 in September Chronic back pain: I have sent 30 tablet of Percocet for her chronic lower back pain patient is taking it very sparingly Patient has already seen Pain Management [facility] and procedure was recommended but now that patient is on blood thinners She says that she will book another appointment for pain management follow-up in March since it will be 1 year since she had stents placed and aortic valve replaced BMI is elevated patient is having difficulty losing weight Follow-up 3 months labs are needed before visit Orders: Orders Comprehensive Met. Panel 2 Months D63.8 - Anemia in other chronic diseases classified elsewhere, E11.8 - Type 2 diabetes mellitus with unspecified complications, E13.9 - Other specified diabetes mellitus without complications, E66.09 - Other obesity due to excess calories, F41.1 - Generalized anxiety disorder, N18.30 - Chronic kidney disease, stage 3 unspecified, N25.81 - Secondary hyperparathyroidism of renal origin, Z92.29 - Personal history of other drug therapy, Z95.3 - Presence of xenogenic heart valve Microalbumin, Random (w Creat) 2 Months D63.8 - Anemia in other chronic diseases classified elsewhere, E11.8 - Type 2 diabetes mellitus with unspecified complications, E13.9 - Other specified diabetes mellitus without complications, E66.09 - Other obesity due to excess calories, F41.1 - Generalized anxiety disorder, N18.30 - Chronic kidney disease, stage 3 unspecified, N25.81 - Secondary hyperparathyroidism of renal origin, Z92.29 - Personal history of other drug therapy, Z95.3 - Presence of xenogenic heart valve Hemoglobin A1c 2 Months D63.8 - Anemia in other chronic diseases classified elsewhere, E11.8 - Type 2 diabetes mellitus with unspecified complications, E13.9 - Other specified diabetes mellitus without complications, E66.09 - Other obesity due to excess calories, F41.1 - Generalized anxiety disorder, N18.30 - Chronic kidney disease, stage 3 unspecified, N25.81 - Secondary hyperparathyroidism of renal origin, Z92.29 - Personal history of other drug therapy, Z95.3 - Presence of xenogenic heart valve Complete Blood Count Auto Diff 2 Months D63.8 - Anemia in other chronic diseases classified elsewhere, E11.8 - Type 2 diabetes mellitus with unspecified complications, E13.9 - Other specified diabetes mellitus without complications, E66.09 - Other obesity due to excess calories, F41.1 - Generalized anxiety disorder, N18.30 - Chronic kidney disease, stage 3 unspecified, N25.81 - Secondary hyperparathyroidism of renal origin, Z92.29 - Personal history of other drug therapy, Z95.3 - Presence of xenogenic heart valve LDL Cholesterol Direct 2 Months D63.8 - Anemia in other chronic diseases classified elsewhere, E11.8 - Type 2 diabetes mellitus with unspecified complications, E13.9 - Other specified diabetes mellitus without complications, E66.09 - Other obesity due to excess calories, F41.1 - Generalized anxiety disorder, N18.30 - Chronic kidney disease, stage 3 unspecified, N25.81 - Secondary hyperparathyroidism of renal origin, Z92.29 - Personal history of other drug therapy, Z95.3 - Presence of xenogenic heart valve Medications: Changed From oxycodone 5 mg PO BID 15 days PRN 30 tabs 0RF pain To oxycodone 5 mg PO BID PRN 30 tabs 0RF pain 30 days Coding Level of Care Code Est Pt Level 4 (95737) Diagnoses Diabetes 1.5, managed as type 2 E13.9 Anxiety, generalized F41.1 Hypertension, essential I10 S/P aortic valve replacement with bioprosthetic valve Z95.3 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
== END 2023-12-20 12:27 | disposition home or self-care (01) ==
PROVIDERS: PCP Internal Medicine; Visit Provider Internal Medicine
DX: I12.9 Hypertensive chronic kidney disease with stage 1 through stage 4 chronic kidney disease, or unspecified chronic kidney disease (principal); E11.22 Type 2 diabetes mellitus with diabetic chronic kidney disease; N18.32 Chronic kidney disease, stage 3b; N25.81 Secondary hyperparathyroidism of renal origin; F41.1 Generalized anxiety disorder; Z95.3 Presence of xenogenic heart valve; Z92.29 Personal history of other drug therapy; E66.09 Other obesity due to excess calories; Z68.32 Body mass index [BMI] 32.0-32.9, adult; D63.8 Anemia in other chronic diseases classified elsewhere
CPT/HCPCS: 99214

== ENCOUNTER → 2024-01-30 15:02 | Outpatient (AMB) | payer MEDICARE, SELFPAY ==
--- NOTE | 2024-01-30 15:23 | AM.OFFWIN_ITS ---
Intake Vital Signs 01/30/24 15:32 Height 5 ft 4 in BP 108/66 Blood Pressure Location Lt brachial Position Sitting Pulse 71 Pulse Source Pulse Oximeter Temp 97.8 F Temp Source Oral Pulse Oximetry (%) 98 Oxygen Delivery Method Room Air Intake Visit Reasons: EP cough Intake Note: pt is here for cough for 2 weeks Patient Tobacco Use Status: Never used Tobacco Allergies Penicillins [PCN] Allergy (Mild, Verified 01/30/24 15:32) RASH Do you need a note to return to daycare/school/sports/work: No HPI HPI Comments History of Present Illness Details 83-year-old female presents today compla ining of a heavy cough increasing intensity over the last 2 weeks. Her daughter has joint her appointment instead she is having lower energy and not eating as much as normal. 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, managed as type 2 Surgical History Status post transcatheter aortic valve replacement (TAVR) using bioprosthesis Hx of cardiac cath History of tonsillectomy History of left cataract surgery History of hysterectomy History of cholecystectomy Family History Father Diabetes Hypertension Mother Diabetes Breast cancer Colon cancer Social History Housing: House Alcohol intake: current Alcohol intake frequency: holidays/special occasions only Patient Tobacco Use Status: Never used Tobacco e-Cigarette/Vaping Use: Never Used service: No Current occupational status: retired Cognitive needs: No Hearing needs: No Vision needs: No Review of Systems Const All systems reviewed & are unremarkable except as noted in HPI and below Physical Exam Vital Signs: Last Vital Signs Temp 97.8 F 01/30/24 15:32 Pulse 71 01/30/24 15:32 BP 108/66 01/30/24 15:32 Pulse Ox 98 01/30/24 15:32 Oxygen Delivery Method Room Air 01/30/24 15:32 HEENT Head: Yes normal to inspection, Yes normocephalic and Yes atraumatic Ears: hearing grossly normal bilaterally General nose exam: Normal external nose present Face and sinus: Yes normal facial exam Throat: Yes posterior oropharynx normal Resp Effort & Inspection: normal respiratory effort and able to speak in complete sentences Auscultation: clear to auscultation bilaterally Cardio Rate: regular rate Rhythm: regular rhythm Results Reviewed Results Reviewed: X-ray performed today was negative for pneumonia. Assessment & Plan Assessment & Plan (1) Bronchitis: Code(s): J40 - Bronchitis, not specified as acute or chronic Plan: The patient is put on antibiotic and Tessalon Perles for cough. We will follow up with her PCP Plan See plan Orders: Orders XR chest 2V Today R05.9 - Cough, unspecified Medications: New doxycycline hyclate 100 mg PO BID 7 days 14 caps 0RF benzonatate 100 mg PO Q4H PRN 14 caps 0RF cough Coding Level of Care Code Est Pt Level 3 (75946) Diagnoses Bronchitis J40
[2024-01-30 15:32] VITALS: BP 108/66; PULSE 71; TEMP 36.6; O2SAT 98
== END ==
PROVIDERS: PCP Internal Medicine; Visit Provider Physician Assistant Medical
DX: J40 Bronchitis, not specified as acute or chronic (principal)
CPT/HCPCS: 99213

== ENCOUNTER 2024-01-30 15:50 | Outpatient (REF) | payer MEDICARE, OTHER, SELFPAY ==
--- NOTE | ~2024-01-30 | XR_ITS ---
EXAMINATION: XR CHEST CLINICAL INFORMATION: Cough. COMPARISON: Chest x-ray 08/25/2020 TECHNIQUE: 2 views of the chest were obtained. FINDINGS: The lungs are well-expanded and clear of acute pneumonic process. Minimal platelike atelectasis seen in the right midlung similar to previous exam 08/25/2023 Heart size and pulmonary vascularity is normal. No gross bony abnormality seen. XR/XR chest 2V IMPRESSION: Unremarkable chest examination.
== END 2024-01-30 15:51 | disposition home or self-care (01) ==
LOC: HO.HMGCX 15:50
PROVIDERS: PCP Internal Medicine; Visit Provider Physician Assistant Medical
DX: R05.9 Cough, unspecified (principal)
CPT/HCPCS: 71046

== ENCOUNTER 2024-02-19 11:54 | Outpatient (AMB) | payer MEDICARE, SELFPAY ==
[2024-02-19 11:58] VITALS: BP 124/58; PULSE 81; O2SAT 98; BMI 30.9
--- NOTE | 2024-02-19 11:58 | HO.NEPHOV_ITS ---
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 Her baseline serum creatinine has been around 1.4-1.7 mg/dL. She was being followed by Dr. Moshe Em. 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 From renal standpoint she has no specific complaints. She had missed readings high salt diet. She does not take any NSAIDs or Ortez 2 inhibitors. She continues have shortness of breath on exertion. No change in weight. She has leg edema. No urinary symptoms. 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, managed as type 2 Surgical History Status post transcatheter aortic valve replacement (TAVR) using bioprosthesis Hx of cardiac cath History of tonsillectomy History of left cataract surgery History of hysterectomy History of cholecystectomy Family History Father Diabetes Hypertension Mother Diabetes Breast cancer Colon cancer Social History Housing: House Alcohol intake: current Alcohol intake frequency: holidays/special occasions only Patient Tobacco Use Status: Never used Tobacco e-Cigarette/Vaping Use: Never Used service: No Current occupational status: retired Cognitive needs: No Hearing needs: No Vision needs: No Physical Exam Vital Signs: Last Vital Signs Pulse 81 02/19/24 11:58 BP 124/58 L 02/19/24 11:58 Pulse Ox 98 02/19/24 11:58 Oxygen Delivery Method Room Air 02/19/24 11:58 BMI result Body Mass Index 30.9 Const General: comfortable Nutritional Appearance: well nourished Orientation/consciousness: patient oriented x3 HEENT Head: No normal to inspection Mouth: moist mucous membranes Neck Neck: Yes supple and Yes no JVD Resp Auscultation: clear to auscultation bilaterally, no rales and rub present Cardio Jugular venous distension: no JVD Palpation: no palpable S3 and no palpable S4 Heart sounds: no rubs GI Palpation (GI): Soft to palpation and nontender Percussion: No Fluid wave present General: Yes no CVA tenderness Back/Spine/Pelvis Back: no CVA tenderness Skin General skin exam: no rashes or lesions noted Neuro General: patient oriented x3 Extrem General: Yes no pedal edema and No clubbing Results Reviewed Nephrology Results: Hgb 10.5 g/dl (12.0-16.0) L 10/27/23 WBC 5.3 X10*3/uL (4.8-10.8) 10/27/23 Plt Count 177 X10*3/uL (160-400) 10/27/23 Sodium 142 mmol/L (135-145) 10/27/23 Potassium 4.6 mmol/L (3.3-5.1) 10/27/23 Chloride 113 mmol/L (96-108) H 10/27/23 Carbon Dioxide 21 mmol/L (22-29) L 10/27/23 BUN 49 mg/dL (9-16) H 10/27/23 Creatinine 1.71 mg/dL (0.5-1.4) H 10/27/23 Calcium 9.0 mg/dL (8.4-10.2) 10/27/23 PTH Intact 257.5 pg/mL (8.7-77.1) H 10/27/23 Urine Protein 30 (1+) mg/dL (Neg-Trace) H 10/27/23 Urine Creatinine 98.15 mg/dL 10/27/23 Assessment & Plan Assessment & Plan (1) Essential hypertension: Code(s): I10 - Essential (primary) hypertension Category: Medical Plan: Blood pressure is better controlled after adding Lasix Discussed weight loss. She should stay on low-sodium diet Potassium normalized after addition of LAsix (2) Kidney disease, chronic, stage III (GFR 30-59 ml/min): Code(s): N18.30 - Chronic kidney disease, stage 3 unspecified Category: Medical Qualifiers: Chronic kidney disease stage 3 subtype: stage 3b (GFR 30-44) Qualified Code(s): N18.32 - Chronic kidney disease, stage 3b Plan: Sherry has stable CKD stage IIIB unit setting of longstanding hypertension diabetes mellitus obesity and coronary disease. In the past she did not have any significant proteinuria. She probably does not have overt diabetic nephropathy. Marginal increase in Creatinine after the addition of Lasix- expected Repeat ordered Goal is to slow the progression of renal disease. Maintain blood pressure less than 130/80 Maintain hemoglobin A1c less than 7% Continue with Marcio inhibitors for renal protection. She might benefit from SGLT 2 inhibitors. 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 No absolute indication for erythropoietin injections. Show follow hemoglobin closely (4) Hyperkalemia: Code(s): E87.5 - Hyperkalemia Category: Medical Plan: From the combination of CKD and continued use of MARCIO-inhibitor. Discussed low-potassium diet. K acceptable with Lasix (5) CAD (coronary artery disease): Comment: 05/24/22 Prox LAD 70% stenosis and MIL placed, Mid LCx 70% stenosis, planned for staged PCI, AV mean gradiant 28mmhg; 03/30/2023, TAVR Dr. Dockery Code(s): I25.10 - Atherosclerotic heart disease of [place] coronary artery without angina pectoris Category: Medical Qualifiers: Coronary Disease-Associated Artery/Lesion type: unspecified vessel or lesion type Plan: As per Cardiology (6) Secondary hyperparathyroidism: Code(s): N25.81 - Secondary hyperparathyroidism of renal origin Category: Medical Plan: on Calcitriol 0.25 mcg 3 x week Check PTH Orders: Orders Phosphorus Today N18.32 - Chronic kidney disease, stage 3b Basic Metabolic Panel Today N18.32 - Chronic kidney disease, stage 3b Complete Blood Count Auto Diff Today N18.30 - Chronic kidney disease, stage 3 unspecified
== END 2024-02-19 12:16 | disposition home or self-care (01) ==
LOC: HO.HKA 11:54
PROVIDERS: PCP Internal Medicine; Visit Provider Internal Medicine Hypertension Specialist
DX: I10 Essential (primary) hypertension (principal); N18.32 Chronic kidney disease, stage 3b; D64.9 Anemia, unspecified; E87.5 Hyperkalemia; I25.10 Atherosclerotic heart disease of native coronary artery without angina pectoris; N25.81 Secondary hyperparathyroidism of renal origin
CPT/HCPCS: 99214

== ENCOUNTER → 2024-02-19 11:54 | Outpatient (BNVA) | payer MEDICARE, SELFPAY | PROVIDERS: PCP Internal Medicine; Visit Provider Internal Medicine Hypertension Specialist | DX: I12.9 Hypertensive chronic kidney disease with stage 1 through stage 4 chronic kidney disease, or unspecified chronic kidney disease (principal); I25.10 Atherosclerotic heart disease of native coronary artery without angina pectoris; E11.22 Type 2 diabetes mellitus with diabetic chronic kidney disease; N18.32 Chronic kidney disease, stage 3b; D63.1 Anemia in chronic kidney disease; E87.5 Hyperkalemia; N25.81 Secondary hyperparathyroidism of renal origin | CPT/HCPCS: 99212 ==

== ENCOUNTER 2024-02-20 14:40 | Outpatient (REF) | payer MEDICARE, SELFPAY ==
[2024-02-20 16:12] LABS: MANUAL DIFF FLAG NO
[2024-02-20 16:41] LABS: Basophils Percent Auto 0.3 % (0-2); Eosinophils Absolute Auto 0.3 X10*3/uL (0.0-0.4); Eosinophils Percent Auto 4.9 % (0-4); Hematocrit 29.7 % (37.0-47.0); Hemoglobin 9.7 g/dl (12.0-16.0); Imm Gran Abs Auto 0.03 X10*3/uL (0.00-0.03); Imm Gran Pct Auto 0.5 % (0.0-0.4); Lymphocytes Absolute Auto 1.9 X10*3/uL (1.2-4.9); Mean Corpuscular HGB Conc 32.7 g/dl (31.0-35.0); Mean Corpuscular Hemoglobin 33.8 pg (27.0-33.0); Mean Corpuscular Volume 103.5 fL (80.0-98.0); Mean Platelet Volume 10.2 fL (9.4-12.3); Monocytes Absolute Auto 0.5 X10*3/uL (0.1-1.2); Monocytes Percent Auto 8.3 % (2-11); Platelet Count 159 X10*3/uL (160-400); Red Blood Count 2.87 X10*6/uL (4.20-5.50); Red Cell Distribution Width 14.6 % (11.0-16.0); White Blood Count 5.8 X10*3/uL (4.8-10.8)
[2024-02-20 16:51] LABS: Estimated Average Glucose 166 mg/dL; Hemoglobin A1c % 7.4 % (<6.0)
[2024-02-20 17:24] LABS: Creatinine Urine 133.11 mg/dL
[2024-02-20 17:28] LABS: Alanine Aminotransferase 28 U/L (0-31); Albumin Level 3.7 g/dL (3.5-5.0); Alkaline Phosphatase 71 U/L (39-117); Anion Gap 13 (12-20); Aspartate Amino Transferase 19 U/L (5-31); Bilirubin Total 0.4 mg/dL (0.0-1.0); Blood Urea Nitrogen 68 mg/dL (9-16); Calcium 9.2 mg/dL (8.4-10.2); Carbon Dioxide 16 mmol/L (22-29); Chloride 117 mmol/L (96-108); Estimated Glomerular Filt Rate 23; Glucose Random 284 mg/dL (60-115); Phosphorus 3.9 mg/dL (2.7-4.5); Potassium 5.9 mmol/L (3.3-5.1); Sodium 140 mmol/L (135-145); Total Protein 6.8 g/dL (6.5-8.0)
[2024-02-21 15:58] LABS: LDL Cholesterol Direct 34 mg/dL (<100)
== END 2024-02-20 14:41 | disposition home or self-care (01) ==
LOC: HO.HMGCLDS 14:40
PROVIDERS: PCP Internal Medicine; Visit Provider Internal Medicine Hypertension Specialist
DX: I12.9 Hypertensive chronic kidney disease with stage 1 through stage 4 chronic kidney disease, or unspecified chronic kidney disease (principal); E13.22 Other specified diabetes mellitus with diabetic chronic kidney disease; N18.32 Chronic kidney disease, stage 3b; F41.1 Generalized anxiety disorder; N25.81 Secondary hyperparathyroidism of renal origin; E66.09 Other obesity due to excess calories; D63.8 Anemia in other chronic diseases classified elsewhere; D63.1 Anemia in chronic kidney disease; Z95.3 Presence of xenogenic heart valve; Z92.29 Personal history of other drug therapy
CPT/HCPCS: 36415; 80053; 82043; 82570; 83036; 83721; 83970; 84100; 85025; 85027

== ENCOUNTER 2024-03-20 10:06 | Outpatient (AMB) | payer MEDICARE, SELFPAY ==
[2024-03-20 10:10] VITALS: BP 132/60; PULSE 64; O2SAT 97; BMI 31.5
--- NOTE | 2024-03-20 10:10 | A.OFFPC_ITS ---
Vital Signs 03/20/24 10:10 Height 5 ft 4 in Weight 183 lb 6 oz BMI 31.5 BP 132/60 Blood Pressure Location Lt brachial Position Sitting Pulse 64 Pulse Source Pulse Oximeter Pulse Oximetry (%) 97 Oxygen Delivery Method Room Air Intake Visit Reasons: Follow Up - see comments Allergies Penicillins [PCN] Allergy (Mild, Verified 03/20/24 10:12) RASH Medication List - Last Reconciled 03/20/24 by León Cannon MD [updraft machine As directed] albuterol sulfate 90 mcg/actuation (ProAir HFA) 1 inh inhalation QID PRN 30 days albuterol sulfate 0.63 mg (3 mL) inhalation QID PRN allopurinol 100 mg PO DAILY aspirin 81 mg PO DAILY atenolol 50 mg PO DAILY atorvastatin 40 mg PO DAILY calcitriol 0.25 mcg PO 3XW ferrous sulfate 325 mg PO DAILY furosemide 20 mg PO DAILY glipizide 2 tabs in am, 1 tab in pm orally 2 times a day; oxycodone 5 mg PO BID PRN 30 days sodium bicarbonate 650 mg PO BID Tobacco use date assessed: 03/20/24 Fall risk assessment: No Falls in past year Last assessed Fall Risk: 03/20/24 Dental Screening Dental Screen Date: 03/20/24 Did you have a dental visit in the last 12 months?: No Did you have a dental problem in the last 6 months where you did not have access to dental care?: No Was dental information given to patient?: No HPI Follow Up - see comments HPI Details Patient is 83-year-old female came in today her regular follow-up appointment Patient had labs done in January through Nephrology, her creatinine came back at 2.03 and potassium was 5.9 Medication was sent in and patient was notified to repeat labs again in 3 days which she did not She says that it is difficult for her to find transport, so she will have labs done today Patient has history of aortic valve replacement patient is on blood thinners managed through Cardiology Recently frusemide 20 mg was added She have Chronic anemia which is stable most likely secondary to nephropathy Blood pressure is stable, patient is on atenolol 50 mg Patient is also diabetic taking glipizide 5 mg b.i.d. hemoglobin A1c came back at 7.4 in January Chronic back pain: I have sent 60 tablet of oxycodone for her chronic lower back pain patient is taking it very sparingly Patient has already seen Pain Management [facility] and procedure was recommended but now that patient is on blood thinners She says that she will book another appointment for pain management follow-up in March since it will be 1 year since she had stents placed and aortic valve replaced BMI is elevated patient is having difficulty losing weight Follow-up 3 months labs are needed before visit [facility] Medical History Pre-op evaluation Chest discomfort Viral syndrome Fall Encounter for general adult medical examination with abnormal findings Shortness of breath Hip pain, right Right leg pain Tracheobronchitis Hypertension, essential Spondylosis of lumbosacral spine with radiculopathy Elevated uric acid in blood Anxiety, generalized 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, managed as type 2 Surgical History Status post transcatheter aortic valve replacement (TAVR) using bioprosthesis Hx of cardiac cath History of tonsillectomy History of left cataract surgery History of hysterectomy History of cholecystectomy Family History Father Diabetes Hypertension Mother Diabetes Breast cancer Colon cancer Social History Housing: House Alcohol intake: current Alcohol intake frequency: holidays/special occasions only Patient Tobacco Use Status: Never used Tobacco e-Cigarette/Vaping Use: Never Used service: No Current occupational status: retired Cognitive needs: No Hearing needs: No Vision needs: No Questionnaire Thrive Questionnaire Date Thrive assessed: 06/08/22 AUDIT C Alcohol Use Questionnaire (AUDIT-C) 1. How often do you have a drink containing alcohol?: Never 3. How often do you have six or more drinks on one occasion?: Never Total Score: 0 Score Reviewed/Action Taken: Yes KAYLA-7 AMB Questionnaire KAYLA-7 Date KAYLA - 7 assessed: 08/25/23 Source: Developed by Drs. Davis Clark, Molly Weems, Timothy Guillen and colleagues, with an educational margie from [employer]. Review of Systems Const Denies chills and Denies fever(s) ENT Denies epistaxis and Denies nasal discharge Card Denies chest pain Resp Denies chest congestion, Denies cough and Denies hemoptysis GI Denies diarrhea and Denies nausea Skin/Breast Denies rash Neuro Reports no additional complaints Psych Reports no additional complaints Endo Reports no additional complaints Physical exam (Primary Care) Vital Signs: Last Vital Signs Pulse 64 03/20/24 10:10 BP 132/60 03/20/24 10:10 Pulse Ox 97 03/20/24 10:10 Oxygen Delivery Method Room Air 03/20/24 10:10 BMI result Body Mass Index 31.5 Tobacco/Smoking Status: Tobacco use Status Tobacco use date assessed 03/20/24 03/20/24 10:13 Patient Tobacco Use Status Never used Tobacco 03/20/24 10:13 e-Cigarette/Vaping Use Never Used 03/20/24 10:13 Thrive Assessment: Date of Thrive Assessment Date Thrive assessed 06/08/22 03/20/24 10:13 Const General: cooperative, comfortable and no acute distress Orientation/consciousness: patient oriented x3 HENMT Head: Yes normocephalic Eyes General: appearance normal, both eyes and all related structures Neck Neck: Yes supple Resp Effort & Inspection: normal respiratory effort, no cough and no stridor Cardio Rhythm: regular rhythm Heart sounds: S1 normal heart sound present and S2 normal heart sound present Skin General skin exam: turgor normal Neuro General: patient oriented x3, tone normal and moves all extremities Extrem Right lower extremity: no edema Left lower extremity: no edema Assessment and Plan Assessment & Plan (1) Diabetes 1.5, managed as type 2: Code(s): E13.9 - Other specified diabetes mellitus without complications (2) Arthrosis: Code(s): M19.90 - Unspecified osteoarthritis, unspecified site (3) Anxiety, generalized: Code(s): F41.1 - Generalized anxiety disorder (4) Kidney disease, chronic, stage III (GFR 30-59 ml/min): Code(s): N18.30 - Chronic kidney disease, stage 3 unspecified Qualifiers: Chronic kidney disease stage 3 subtype: stage 3b (GFR 30-44) Qualified Code(s): N18.32 - Chronic kidney disease, stage 3b (5) Spondylosis of lumbosacral spine with radiculopathy: Code(s): M47.27 - Other spondylosis with radiculopathy, lumbosacral region (6) Essential hypertension: Code(s): I10 - Essential (primary) hypertension (7) Hx of assisted use of blood thinners: Code(s): Z92.29 - Personal history of other drug therapy (8) Secondary hyperparathyroidism: Code(s): N25.81 - Secondary hyperparathyroidism of renal origin (9) Anemia of chronic illness: Code(s): D63.8 - Anemia in other chronic diseases classified elsewhere (10) S/P aortic valve replacement with bioprosthetic valve: Code(s): Z95.3 - Presence of xenogenic heart valve (11) Obesity due to excess calories: Code(s): E66.09 - Other obesity due to excess calories Qualifiers: Body mass index: BMI 32.0-32.9 Obesity classification: adult class 1 (BMI 30 - 34.9) Serious obesity comorbidity presence: with serious comorbidity Qualified Code(s): E66.09 - Other obesity due to excess calories; Z68.32 - Body mass index [BMI] 32.0-32.9, adult Plan Patient is 83-year-old female came in today her regular follow-up appointment Patient had labs done in January through Nephrology, her creatinine came back at 2.03 and potassium was 5.9 Medication was sent in and patient was notified to repeat labs again in 3 days which she did not She says that it is difficult for her to find transport, so she will have labs done today Patient has history of aortic valve replacement patient is on blood thinners managed through Cardiology Recently frusemide 20 mg was added She have Chronic anemia which is stable most likely secondary to nephropathy Blood pressure is stable, patient is on atenolol 50 mg Patient is also diabetic taking glipizide 5 mg b.i.d. hemoglobin A1c came back at 7.4 in January Chronic back pain: I have sent 60 tablet of oxycodone for her chronic lower back pain patient is taking it very sparingly Patient has already seen Pain Management [facility] and procedure w as recommended but now that patient is on blood thinners She says that she will book another appointment for pain management follow-up in March since it will be 1 year since she had stents placed and aortic valve replaced BMI is elevated patient is having difficulty losing weight Follow-up 3 months labs are needed before visit Orders: Orders Complete Blood Count Auto Diff 3 Months D63.8 - Anemia in other chronic diseases classified elsewhere, E13.9 - Other specified diabetes mellitus without complications, F41.1 - Generalized anxiety disorder, I10 - Essential (primary) hypertension, M19.90 - Unspecified osteoarthritis, unspecified site, M47.27 - Other spondylosis with radiculopathy, lumbosacral region, N18.32 - Chronic kidney disease, stage 3b, N25.81 - Secondary hyperparathyroidism of renal origin, N28.9 - Disorder of kidney and ureter, unspecified, Z92.29 - Personal history of other drug therapy LDL Cholesterol Direct 3 Months D63.8 - Anemia in other chronic diseases classified elsewhere, E13.9 - Other specified diabetes mellitus without comp lications, F41.1 - Generalized anxiety disorder, I10 - Essential (primary) hypertension, M19.90 - Unspecified osteoarthritis, unspecified site, M47.27 - Other spondylosis with radiculopathy, lumbosacral region, N18.32 - Chronic kidney disease, stage 3b, N25.81 - Secondary hyperparathyroidism of renal origin, N28.9 - Disorder of kidney and ureter, unspecified, Z92.29 - Personal history of other drug therapy Hemoglobin A1c 3 Months D63.8 - Anemia in other chronic diseases classified elsewhere, E13.9 - Other specified diabetes mellitus without complications, F41.1 - Generalized anxiety disorder, I10 - Essential (primary) hypertension, M19.90 - Unspecified osteoarthritis, unspecified site, M47.27 - Other spondylosis with radiculopathy, lumbosacral region, N18.32 - Chronic kidney disease, stage 3b, N25.81 - Secondary hyperparathyroidism of renal origin, N28.9 - Disorder of kidney and ureter, unspecified, Z92.29 - Personal history of other drug therapy TSH reflex Free T4 3 Months D63.8 - Anemia in other chronic diseases classified elsewhere, E13.9 - Other specified diabetes mellitus without complications, F41.1 - Generalized anxiety disorder, I10 - Essential (primary) hypertension, M19.90 - Unspecified osteoarthritis, unspecified site, M47.27 - Other spondylosis with radiculopathy, lumbosacral region, N18.32 - Chronic kidney disease, stage 3b, N25.81 - Secondary hyperparathyroidism of renal origin, N28.9 - Disorder of kidney and ureter, unspecified, Z92.29 - Personal history of other drug therapy Comprehensive Met. Panel 3 Months D63.8 - Anemia in other chronic diseases classified elsewhere, E13.9 - Other specified diabetes mellitus without complications, F41.1 - Generalized anxiety disorder, I10 - Essential (primary) hypertension, M19.90 - Unspecified osteoarthritis, unspecified site, M47.27 - Other spondylosis with radiculopathy, lumbosacral region, N18.32 - Chronic kidney disease, stage 3b, N25.81 - Secondary hyperparathyroidism of renal origin, N28.9 - Disorder of kidney and ureter, unspecified, Z92.29 - Personal history of other drug therapy Microalbumin, Random (w Creat) 3 Months D63.8 - Anemia in other chronic diseases classified elsewhere, E13.9 - Other specified diabetes mellitus without complications, F41.1 - Generalized anxiety disorder, I10 - Essential (primary) hypertension, M19.90 - Unspecified osteoarthritis, unspecified site, M47.27 - Other spondylosis with radiculopathy, lumbosacral region, N18.32 - Chronic kidney disease, stage 3b, N25.81 - Secondary hyperparathyroidism of renal origin, N28.9 - Disorder of kidney and ureter, unspecified, Z92.29 - Personal history of other drug therapy Medications: Refilled oxycodone 5 mg PO BID PRN 60 tabs 0RF pain 30 days Coding Level of Care Code Est Pt Level 4 (21344) Complex EM visit Add On G2211 Diagnoses Diabetes 1.5, managed as type 2 E13.9 Arthrosis M19.90 Anxiety, generalized F41.1 Stage 3b chronic kidney disease N18.32 Chronic kidney disease stage 3 subtype: stage 3b (GFR 30-44) Spondylosis of lumbosacral spine with radiculopathy M47.27 Essential hypertension I10 Hx of assisted use of blood thinners Z92.29 Secondary hyperparathyroidism N25.81 Anemia of chronic illness D63.8 S/P aortic valve replacement with bioprosthetic valve Z95.3 Class 1 obesity due to excess calories with serious comorbidity and body mass index (BMI) of 32.0 to 32.9 in adult E66.09; Z68.32 Body mass index: BMI 32.0-32.9 Obesity classification: adult class 1 (BMI 30 - 34.9) Serious obesity comorbidity presence: with serious comorbidity
== END 2024-03-20 10:33 | disposition home or self-care (01) ==
PROVIDERS: PCP Internal Medicine; Visit Provider Internal Medicine
DX: I12.9 Hypertensive chronic kidney disease with stage 1 through stage 4 chronic kidney disease, or unspecified chronic kidney disease (principal); E13.9 Other specified diabetes mellitus without complications; N18.32 Chronic kidney disease, stage 3b; N25.81 Secondary hyperparathyroidism of renal origin; M19.90 Unspecified osteoarthritis, unspecified site; F41.1 Generalized anxiety disorder; M47.27 Other spondylosis with radiculopathy, lumbosacral region; Z92.29 Personal history of other drug therapy; D63.8 Anemia in other chronic diseases classified elsewhere; Z95.3 Presence of xenogenic heart valve; E66.09 Other obesity due to excess calories; Z68.32 Body mass index [BMI] 32.0-32.9, adult
CPT/HCPCS: 99214; G2211

== ENCOUNTER 2024-03-20 10:43 | Outpatient (REF) | payer MEDICARE, SELFPAY ==
[2024-03-20 13:17] LABS: MANUAL DIFF FLAG NO
[2024-03-20 13:22] LABS: Basophils Absolute Auto 0.1 X10*3/uL (0.0-0.2); Basophils Percent Auto 0.8 % (0-2); Eosinophils Absolute Auto 0.2 X10*3/uL (0.0-0.4); Hemoglobin 10.5 g/dl (12.0-16.0); Imm Gran Abs Auto 0.02 X10*3/uL (0.00-0.03); Imm Gran Pct Auto 0.3 % (0.0-0.4); Lymphocytes Absolute Auto 2.1 X10*3/uL (1.2-4.9); Lymphocytes Percent Auto 34.4 % (20-40); Mean Corpuscular HGB Conc 31.8 g/dl (31.0-35.0); Mean Corpuscular Hemoglobin 33.8 pg (27.0-33.0); Mean Corpuscular Volume 106.1 fL (80.0-98.0); Mean Platelet Volume 10.1 fL (9.4-12.3); Monocytes Absolute Auto 0.6 X10*3/uL (0.1-1.2); Neutrophils Absolute Auto 3.1 x10*3/uL (2.0-8.3); Neutrophils Percent Auto 51.5 % (45-73); Platelet Count 204 X10*3/uL (160-400); Red Blood Count 3.11 X10*6/uL (4.20-5.50); Red Cell Distribution Width 14.7 % (11.0-16.0); White Blood Count 6.1 X10*3/uL (4.8-10.8)
[2024-03-20 13:46] LABS: Anion Gap 16 (12-20); Blood Urea Nitrogen 52 mg/dL (9-16); Calcium 9.6 mg/dL (8.4-10.2); Carbon Dioxide 18 mmol/L (22-29); Chloride 112 mmol/L (96-108); Estimated Glomerular Filt Rate 26; Glucose Random 154 mg/dL (60-115); Potassium 5.4 mmol/L (3.3-5.1); Sodium 141 mmol/L (135-145)
== END 2024-03-20 10:44 | disposition home or self-care (01) ==
LOC: HO.HMGCLDS 10:43
PROVIDERS: PCP Internal Medicine; Visit Provider Internal Medicine Hypertension Specialist
DX: N18.32 Chronic kidney disease, stage 3b (principal); F41.1 Generalized anxiety disorder; N25.81 Secondary hyperparathyroidism of renal origin; E11.8 Type 2 diabetes mellitus with unspecified complications; N18.30 Chronic kidney disease, stage 3 unspecified; Z95.3 Presence of xenogenic heart valve; Z92.29 Personal history of other drug therapy; E66.09 Other obesity due to excess calories; D63.8 Anemia in other chronic diseases classified elsewhere
CPT/HCPCS: 36415; 80048; 85025

== ENCOUNTER → 2024-03-29 12:58 | Outpatient (REF) | payer MEDICARE, SELFPAY ==
--- NOTE | 2024-03-29 13:01 | CA_ITS ---
Transthoracic Echocardiogram Patient (Last, First, Middle): Sherry Santoyo, Gender: Female Date of : 1940 Age: 83 Procedure Date: 03/29/2024 Procedure Type: Transthoracic Echocardiogram Location: OP Height: 162.56 cm Weight: 82.56 kg BSA: 1.88 m2 Heart Rate: bpm BP: 130 / 60 mmHg Engineering Production Liaison: TO Referring MD: Sondra Higgins ASSISTANT UNIT FORESTERChris Symptoms: Z95.3 - Presence of xenogenic heart valve Study Quality: Fair/Contrast ECG Rhythm: Sinus Conclusions: - The left ventricular systolic function is normal. The visually estimated ejection fraction is between 60-65%. - A bioprosthetic aortic valve is present. The prosthetic aortic valve appears to be functioning normally. Findings Procedure Information Contrast agent, definity, is being given per protocol without apparent complications. Left Ventricle Normal left ventricular cavity size. There is normal left ventricular wall thickness. The left ventricular systolic function is normal. The visually estimated ejection fraction is between 60-65%. There is no evidence of regional wall motion abnormalities. Evidence suggests grade I (mild) diastolic dysfunction. Right Ventricle Normal right ventricular cavity size and systolic function. Atria The left atrium is mildly dilated. The right atrium is normal in size. Aortic Valve A bioprosthetic aortic valve is present. The prosthetic aortic valve appears to be functioning normally. The mean gradient is 13 mmHg. There is no aortic valve regurgitation. Mitral Valve There is moderate mitral annular calcification. There is trace mitral valve regurgitation. There is no mitral valve stenosis. Pulmonic Valve The pulmonic valve is likely normal. Tricuspid Valve Normal tricuspid valve structure. There is trace tricuspid valve regurgitation. There is no evidence of pulmonary hypertension. Great Vessels The asc aorta is normal in size. Venous The inferior vena cava is normal in size and collapses greater than 50% with inspiration. Pericardium/Pleural There is no evidence of pericardial effusion. Prior Study Comparison No significant change compared to prior study dated: 05/03/2023. Measurements 2D Linear Measurements IVSd: 1.00 0.6-0.9/0.6-1.0 cm LVIDd: 4.24 3.9-5.3/4.2-5.9 cm LVIDd Index: 2.26 2.4-3.2/2.2-3.1 cm/m2 LVIDs: 3.14 2.0-3.6 cm LVPWd: 0.84 0.7-1.1 cm LA Diam: 3.80 2.7-3.8/3.0-4.0 cm LAIDs Index: 2.02 1.5-2.3 cm/m2 LV Mass: 154.93 67-162/88-224 g LV Mass Index: 82.41 43-95/49-115 g/m2 LVOT Diam: 2.00 3.0+(-)1.3 cm 2D Systolic Function EF 4C: 63.60 >55% Mitral Valve MV VTI: 0.38 MV Pk Jony: 1.66 MV Mn Jony: 1.01 MV Pk Grad: 11.00 MV Mn Grad: 5.00 MV Pk E: 0.87 MV PK A: 1.39 MV Decel Time: 156.00 E/A: 0.60 E'Lateral: 5.77 E'Medial: 4.03 E/E' Med: 21.70 E/E' Lat: 15.10 PHT: 46.00 MVA PHT: 4.78 MVA Continuity: 2.44 Decel Bent: 5.60 Aortic Valve AoV Pk Jony: 2.48 AoV Mn Jony: 1.70 AoV VTI: 0.51 AoV Pk Grad: 25.00 Aov Mn Grad: 13.00 BENEDICT Cont.VTI: 1.80 LVOT LVOT Pk Jony: 1.24 LVOT Mn Jony: 0.90 LVOT VTI: 0.29 LVOT Pk Grad: 6.00 LVOT Mn Grad: 4.00 LVOT Diam: 2.00 LVOT Area: 3.14 Diastolic Function MV Pk E: 0.87 MV Pk A: 1.39 E/A: 0.60 E'Medial: 4.03 E/E' Med: 21.70 E' Laterial: 5.77 E/E' Lat: 15.10 Right Ventricle TAPSE (mm): 25.60 TVS' Jony: 10.60 Tricuspid Valve TR Pk Jony: 2.32 TR Pk Grad: 22.00 RA Press: 3.00 RVSP: 25.00 Great Vessels Aorta Ao Asc: 3.50 2.1-3.4 cm Ao Arch: 3.10 Updated in Other Vendor System with Status of Final Casey Richardson MD electronically signed on 03/30/2024 12:47:25 PM with status of Final
== END ==
LOC: HO.CARD 12:58
PROVIDERS: PCP Internal Medicine; Visit Provider Nurse Practitioner Family
DX: Z95.3 Presence of xenogenic heart valve (principal)
CPT/HCPCS: 93306; Q9957

== ENCOUNTER → 2024-03-29 13:01 | Outpatient (BNV) | payer MEDICARE, SELFPAY | PROVIDERS: PCP Internal Medicine; Visit Provider Internal Medicine | DX: I34.81 Nonrheumatic mitral (valve) annulus calcification (principal); Z95.3 Presence of xenogenic heart valve | CPT/HCPCS: 93306 ==

== ENCOUNTER 2024-04-05 11:24 | Outpatient (REF) | payer MEDICARE, SELFPAY ==
--- NOTE | ~2024-04-05 | US_ITS ---
EXAMINATION: US RETROPERITONEAL LIMITED (RENAL ONLY) CLINICAL INFORMATION: Chronic kidney disease, stage 3b. COMPARISON: None available. TECHNIQUE: Real-time imaging of the kidneys. FINDINGS: RIGHT KIDNEY: 10.7 x 4.4 x 5.9 cm (SAG x AP x TRV). Diffuse renal cortical thinning. Increased renal echogenicity is characteristic of chronic renal disease. No hydronephrosis. No renal calculi. 3.4 cm septated right mid pole cyst with benign features. There is no indication for follow-up imaging. 1.1 cm mid pole cyst with benign features. There is no indication for follow-up imaging. Limited visualization. LEFT KIDNEY: 10.2 x 4.9 x 5.0 cm (SAG x AP x TRV).Diffuse renal cortical thinning. Increased renal echogenicity is characteristic of chronic renal disease. No hydronephrosis. No renal calculi. 1.9 cm septated upper pole cyst with benign features. There is no indication for follow-up imaging. US/US renal BI IMPRESSION: Diffuse renal cortical thinning. Increased renal echogenicity is characteristic of chronic renal disease. No hydronephrosis. No renal calculi. Limited visualization.
[2024-04-05 13:38] LABS: Anion Gap 15 (12-20); Blood Urea Nitrogen 33 mg/dL (9-16); Calcium 9.3 mg/dL (8.4-10.2); Carbon Dioxide 22 mmol/L (22-29); Chloride 109 mmol/L (96-108); Estimated Glomerular Filt Rate 36; Glucose Random 176 mg/dL (60-115); Potassium 5.1 mmol/L (3.3-5.1); Sodium 141 mmol/L (135-145)
== END 2024-04-05 11:25 | disposition home or self-care (01) ==
LOC: HO.HMGCX 11:24
PROVIDERS: PCP Internal Medicine; Visit Provider Internal Medicine Hypertension Specialist
DX: I12.9 Hypertensive chronic kidney disease with stage 1 through stage 4 chronic kidney disease, or unspecified chronic kidney disease (principal); N18.32 Chronic kidney disease, stage 3b; E87.5 Hyperkalemia
CPT/HCPCS: 36415; 76775; 80048

== ENCOUNTER 2024-04-08 10:42 | Outpatient (AMB) | payer MEDICARE, SELFPAY ==
[2024-04-08 10:43] VITALS: BP 164/68; PULSE 74; O2SAT 94; BMI 31.2
--- NOTE | 2024-04-08 10:43 | HO.NEPHOV_ITS ---
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: No Accompanied by: Daughter Allergies Penicillins [PCN] Allergy (Mild, Verified 04/08/24 10:44) RASH Medication List - Last Reconciled 04/08/24 by Claudio Blakely MD [updraft machine As directed] albuterol sulfate 90 mcg/actuation (ProAir HFA) 1 inh inhalation QID PRN 30 days albuterol sulfate 0.63 mg (3 mL) inhalation QID PRN allopurinol 100 mg PO DAILY aspirin 81 mg PO DAILY atenolol 50 mg PO DAILY atorvastatin 40 mg PO DAILY calcitriol 0.25 mcg PO 3XW ferrous sulfate 325 mg PO DAILY furosemide 20 mg PO DAILY glipizide 2 tabs in am, 1 tab in pm orally 2 times a day; oxycodone 5 mg PO BID PRN 30 days sodium bicarbonate 650 mg PO BID HPI Comments Details: Lorena Cloud is an 83-year-old female with a history of hypertension, diabetes, hyperlipidemia, first-degree AV block, CAD status post 2 cardiac catheterization with stent placements, severe aortic stenosis s/p TAVR March 2023 She has stage IIIB CKD. Her baseline serum creatinine has been around 1.4-1.7 mg/dL. She was being followed by Dr. Moshe Em. 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 From renal standpoint she has no specific complaints. She had missed readings high salt diet. She does not take any NSAIDs or Ortez 2 inhibitors. She continues have shortness of breath on exertion. No change in weight. She has leg edema. No urinary symptoms. 11/20/23 Tolerating Lasix 20 mg QD Lost 5 lbs No dyspnea 02/19/24 c/o Cough x 3 week;CXR normal;Waiting for ECHO 04/08/2024. Overall feels better. No further cough. Accompanied by daughter. 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, managed as type 2 Surgical History Status post transcatheter aortic valve replacement (TAVR) using bioprosthesis Hx of cardiac cath History of tonsillectomy History of left cataract surgery History of hysterectomy History of cholecystectomy Family History Father Diabetes Hypertension Mother Diabetes Breast cancer Colon cancer Social History Housing: House Alcohol intake: current Alcohol intake frequency: holidays/special occasions only Patient Tobacco Use Status: Never used Tobacco e-Cigarette/Vaping Use: Never Used service: No Current occupational status: retired Cognitive needs: No Hearing needs: No Vision needs: No Physical Exam Vital Signs: Last Vital Signs Pulse 74 04/08/24 10:43 BP 148/60 H 04/08/24 11:07 Pulse Ox 94 04/08/24 10:43 Oxygen Delivery Method Room Air 04/08/24 10:43 BMI result Body Mass Index 31.2 Const General: comfortable Nutritional Appearance: well nourished Orientation/consciousness: patient oriented x3 HEENT Head: No normal to inspection Mouth: moist mucous membranes Neck Neck: Yes supple and Yes no JVD Resp Auscultation: clear to auscultation bilaterally and no rales Cardio Jugular venous distension: no JVD Palpation: no palpable S3 and no palpable S4 Heart sounds: no rubs GI Palpation (GI): Soft to palpation and nontender Percussion: No Fluid wave present General: Yes no CVA tenderness Back/Spine/Pelvis Back: no CVA tenderness Skin General skin exam: no rashes or lesions noted Neuro General: patient oriented x3 Extrem General: Yes no pedal edema and No clubbing Results Reviewed Nephrology Results: Hgb 10.5 g/dl (12.0-16.0) L 03/20/24 WBC 6.1 X10*3/uL (4.8-10.8) 03/20/24 Plt Count 204 X10*3/uL (160-400) 03/20/24 Sodium 141 mmol/L (135-145) 04/05/24 Potassium 5.1 mmol/L (3.3-5.1) 04/05/24 Chloride 109 mmol/L (96-108) H 04/05/24 Carbon Dioxide 22 mmol/L (22-29) 04/05/24 BUN 33 mg/dL (9-16) H 04/05/24 Creatinine 1.39 mg/dL (0.5-1.4) 04/05/24 Calcium 9.3 mg/dL (8.4-10.2) 04/05/24 Phosphorus 3.9 mg/dL (2.7-4.5) 02/20/24 PTH Intact 191.0 pg/mL (8.7-77.1) H 02/20/24 Urine Creatinine 133.11 mg/dL 02/20/24 Renal US 04/05/24 Assessment & Plan Assessment & Plan (1) Kidney disease, chronic, stage III (GFR 30-59 ml/min): Code(s): N18.30 - Chronic kidney disease, stage 3 unspecified Category: Medical Qualifiers: Chronic kidney disease stage 3 subtype: stage 3b (GFR 30-44) Qualified Code(s): N18.32 - Chronic kidney disease, stage 3b Plan: Sherry has stable CKD stage IIIB unit setting of longstanding hypertension diabetes mellitus obesity and coronary disease. In the past she did not have any significant proteinuria. She probably does not have overt diabetic nephropathy. Marginal increase in Creatinine after the addition of Lasix- expected Creatinine has returned to baseline. Goal is to slow the progression of renal disease. Maintain blood pressure less than 130/80 Maintain hemoglobin A1c less than 7% Continue with Marcio inhibitors for renal protection. She might benefit from SGLT 2 inhibitors. (2) Essential hypertension: Code(s): I10 - Essential (primary) hypertension Category: Medical Plan: Blood pressure is elevated today. Repeat blood pressure was better. Encouraged to monitor blood pressure at home and if systolic blood pressure is elevated we can readdress this Discussed weight loss. 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 No absolute indication for erythropoietin injections. Show follow hemoglobin closely (4) Hyperkalemia: Code(s): E87.5 - Hyperkalemia Category: Medical Plan: From the combination of CKD and continued use of MARCIO-inhibitor. Discussed low-potassium diet. K acceptable with Lasix (5) CAD (coronary artery disease): Comment: 05/24/22 Prox LAD 70% stenosis and MIL placed, Mid LCx 70% stenosis, planned for staged PCI, AV mean gradiant 28mmhg; 03/30/2023, TAVR Dr. Dockery Code(s): I25.10 - Atherosclerotic heart disease of [place] coronary artery without angina pectoris Category: Medical Qualifiers: Coronary Disease-Associated Artery/Lesion type: unspecified vessel or lesion type Plan: Echocardiogram unremarkable As per Cardiology (6) Secondary hyperparathyroidism: Code(s): N25.81 - Secondary hyperparathyroidism of renal origin Category: Medical Plan: on Calcitriol 0.25 mcg 3 x week PTH was 191. Repeat ordered Orders: Orders Basic Metabolic Panel 3 Months I10 - Essential (primary) hypertension, N18.32 - Chronic kidney disease, stage 3b Parathyroid Hormone Intact 3 Months I10 - Essential (primary) hypertension, N18.32 - Chronic kidney disease, stage 3b Phosphorus 3 Months I10 - Essential (primary) hypertension, N18.32 - Chronic kidney disease, stage 3b Complete Blood Count no Diff 3 Months I10 - Essential (primary) hypertension, N18.32 - Chronic kidney disease, stage 3b Coding Level of Care Code Est Pt Level 4 (83389) Diagnoses Stage 3b chronic kidney disease N18.32 Chronic kidney disease stage 3 subtype: stage 3b (GFR 30-44) Essential hypertension I10 Anemia D64.9 Anemia type: due to chronic kidney disease Chronic kidney disease stage 3 subtype: stage 3b (GFR 30-44) Hyperkalemia E87.5 CAD (coronary artery disease) I25.10 Coronary Disease-Associated Artery/Lesion type: unspecified vessel or lesion type Secondary hyperparathyroidism N25.81
[2024-04-08 11:07] VITALS: BP 148/60
== END 2024-04-08 11:10 | disposition home or self-care (01) ==
PROVIDERS: PCP Internal Medicine; Visit Provider Internal Medicine Hypertension Specialist
DX: N18.32 Chronic kidney disease, stage 3b (principal); I10 Essential (primary) hypertension; D64.9 Anemia, unspecified; E87.5 Hyperkalemia; I25.10 Atherosclerotic heart disease of native coronary artery without angina pectoris; N25.81 Secondary hyperparathyroidism of renal origin
CPT/HCPCS: 99214

== ENCOUNTER → 2024-04-08 10:42 | Outpatient (BNVA) | payer MEDICARE, SELFPAY | PROVIDERS: PCP Internal Medicine; Visit Provider Internal Medicine Hypertension Specialist | DX: I12.9 Hypertensive chronic kidney disease with stage 1 through stage 4 chronic kidney disease, or unspecified chronic kidney disease (principal); N18.32 Chronic kidney disease, stage 3b; D64.9 Anemia, unspecified; E87.5 Hyperkalemia; I25.10 Atherosclerotic heart disease of native coronary artery without angina pectoris; N25.81 Secondary hyperparathyroidism of renal origin | CPT/HCPCS: 99212 ==

== ENCOUNTER 2024-04-10 14:05 | Outpatient (AMB) | payer MEDICARE, SELFPAY ==
--- NOTE | 2024-04-10 14:05 | A.OFFVIS_ITS ---
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: No Allergies Penicillins [PCN] Allergy (Mild, Verified 04/08/24 10:44) RASH Medication List - Last Reconciled 04/10/24 by Casey Richardson MD [updraft machine As directed] albuterol sulfate 90 mcg/actuation (ProAir HFA) 1 inh inhalation QID PRN 30 days albuterol sulfate 0.63 mg (3 mL) inhalation QID PRN allopurinol 100 mg PO DAILY aspirin 81 mg PO DAILY atenolol 50 mg PO DAILY atorvastatin 40 mg PO DAILY calcitriol 0.25 mcg PO 3XW clopidogrel 75 mg PO DAILY ferrous sulfate 325 mg PO DAILY furosemide 20 mg PO DAILY glipizide 2 tabs in am, 1 tab in pm orally 2 times a day; oxycodone 5 mg PO BID PRN 30 days sodium bicarbonate 650 mg PO ONCE HPI Comments Details: Sherry returns for follow-up regarding aortic stenosis/status post TAVR. She also has coronary disease. Overall, she states she is feeling very good. No cardiac symptoms. To recall, she was originally seen about 5 years ago. At that time, she had aortic valve calcification. She returned last year stating that she had difficulty breathing as well as chest pressure. Also some chest pressure but not Subsequently, she underwent workup. Echocardiogram with moderate to severe aortic stenosis. Then underwent cardiac catheterization and underwent LAD/circumflex stenting on 2 different occasions. She still had residual shortness of breath and that led to TAVR this year. Now, she states she is actually feeling pretty good. No new symptoms. 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, managed as type 2 Surgical History Status post transcatheter aortic valve replacement (TAVR) using bioprosthesis Hx of cardiac cath History of tonsillectomy History of left cataract surgery History of hysterectomy History of cholecystectomy Family History Father Diabetes Hypertension Mother Diabetes Breast cancer Colon cancer Social History Housing: House Alcohol intake: current Alcohol intake frequency: holidays/special occasions only Patient Tobacco Use Status: Never used Tobacco e-Cigarette/Vaping Use: Never Used service: No Current occupational status: retired Cognitive needs: No Hearing needs: No Vision needs: No Review of Systems Const Denies chills, Denies fatigue, Denies fever(s), Denies frequent falls, Denies weakness, Denies weight gain and Denies weight loss ENT Denies dizziness Card Denies chest pain, Denies leg edema, Denies lightheadedness, Denies palpita tions, Denies dyspnea, Denies dyspnea on exertion, Denies orthopnea and Denies other (loss of consciousness) Resp Denies cough, Denies dyspnea and Denies dyspnea on exertion GI Denies hematochezia and Denies change in stool character Musc Denies abnormal gait, Denies muscle weakness, Denies numbness, Denies radiating pain into limb and Denies tingling Neuro Denies abnormal gait, Denies dizziness, Denies frequent falls, Denies numbness, Denies tingling and Denies weakness Endo Denies fatigue and Denies palpitations Physical Exam Vital Signs: Last Vital Signs Pulse 80 04/10/24 14:06 BP 130/82 04/10/24 14:06 BMI result Body Mass Index 31.4 Const General: comfortable and no acute distress Orientation/consciousness: patient oriented x3 HEENT Other: Unremarkable Head: Yes normal to inspection Neck Neck: Yes normal visual inspection Chest Chest palpation & inspection: normal inspection of the chest Resp Auscultation: clear to auscultation bilaterally Cardio Palpation: normal PMI Heart sounds: S1 normal heart sound present, S2 normal heart sound present, no gallops, Murmur heart sound present systolic I/ and at the right sternal border and no rubs GI Palpation (GI): Soft to palpation Back/Spine/Pelvis Other: unremarkable Skin General skin exam: no rashes or lesions noted Neuro General: patient oriented x3 Extrem General: Yes normal to inspection Psych Mental Status: mental status grossly normal Assessment & Plan Assessment & Plan (1) Status post transcatheter aortic valve replacement (TAVR) using bioprosthesis: Code(s): Z95.3 - Presence of xenogenic heart valve Category: Surgical Plan: In the most recent echocardiogram, normally functioning TAVR valve. No significant regurgitation. May take infective endocarditis prophylaxis before dental procedures. Continue aspirin. (2) Atherosclerotic cardiovascular disease: Code(s): I25.10 - Atherosclerotic heart disease of [place] coronary artery without angina pectoris Category: Medical Plan: Status post LAD as well as circumflex stenting. May remain on aspirin but stop the Plavix. Continue statins. Direct LDL is 34 mg/dL. (3) Essential hypertension: Code(s): I10 - Essential (primary) hypertension Category: Medical Plan: Has a history of CKD/hyperkalemia. Concurrently seen by Nephrology. Patient is on atenolol. Today's blood pressure seems okay. (4) Prolonged QT interval: Code(s): R94.31 - Abnormal electrocardiogram [ECG] [EKG] Category: Medical Plan: Avoid QT prolonging drugs. (5) Kidney disease, chronic, stage III (GFR 30-59 ml/min): Code(s): N18.30 - Chronic kidney disease, stage 3 unspecified Category: Medical Qualifiers: Chronic kidney disease stage 3 subtype: stage 3b (GFR 30-44) Qualified Code(s): N18.32 - Chronic kidney disease, stage 3b Plan: Follow-up with nephrology. Medications: Changed From sodium bicarbonate 650 mg PO BID 180 tabs 1RF To sodium bicarbonate 650 mg PO ONCE Coding Level of Care Code Est Pt Level 4 (33050) Diagnoses Status post transcatheter aortic valve replacement (TAVR) using bioprosthesis Z95.3 Atherosclerotic cardiovascular disease I25.10 Essential hypertension I10 Prolonged QT interval R94.31 Stage 3b chronic kidney disease N18.32 Chronic kidney disease stage 3 subtype: stage 3b (GFR 30-44)
[2024-04-10 14:06] VITALS: BP 130/82; PULSE 80; BMI 31.4
== END 2024-04-10 14:31 | disposition home or self-care (01) ==
LOC: HO.HCS 14:05
PROVIDERS: PCP Internal Medicine; Referring Provider Internal Medicine; Visit Provider Internal Medicine
DX: Z95.3 Presence of xenogenic heart valve (principal); I25.10 Atherosclerotic heart disease of native coronary artery without angina pectoris; I10 Essential (primary) hypertension; R94.31 Abnormal electrocardiogram [ECG] [EKG]; N18.32 Chronic kidney disease, stage 3b
CPT/HCPCS: 99214

== ENCOUNTER → 2024-04-10 14:05 | Outpatient (BNVA) | payer MEDICARE, SELFPAY | PROVIDERS: PCP Internal Medicine; Visit Provider Internal Medicine | DX: I12.9 Hypertensive chronic kidney disease with stage 1 through stage 4 chronic kidney disease, or unspecified chronic kidney disease (principal); N18.32 Chronic kidney disease, stage 3b; I25.10 Atherosclerotic heart disease of native coronary artery without angina pectoris; R94.31 Abnormal electrocardiogram [ECG] [EKG]; Z95.3 Presence of xenogenic heart valve | CPT/HCPCS: 99212 ==

== ENCOUNTER 2024-06-07 14:22 | Outpatient (AMB) | payer MEDICARE, SELFPAY ==
[2024-06-07 14:24] VITALS: BP 122/70; PULSE 82; O2SAT 95; BMI 30.8
--- NOTE | 2024-06-07 14:24 | HO.NEPHOV ---
Vital Signs 06/07/24 14:24 Height 5 ft 4 in Weight 179 lb 8 oz BMI 30.8 BP 122/70 Blood Pressure Location Rt brachial Position Sitting Pulse 82 Pulse Source Pulse Oximeter Pulse Oximetry (%) 95 Oxygen Delivery Method Room Air Intake Visit Reasons: ? Lisinopril- Dr Blakely pt Director Of Cardiology Required: No Accompanied by: Self / Same As Patient Allergies Penicillins [PCN] Allergy (Mild, Verified 06/07/24 14:27) RASH HPI Comments Details: I had the delight of seeing Lorena Cloud who is an 83-year-old female with a history of hypertension, diabetes, hyperlipidemia, first-degree AV block, CAD status post 2 cardiac catheterization with stent placements, severe aortic stenosis s/p TAVR March 2023. She has stage IIIB CKD with a serum creatinine has been around 1.4-1.7 mg/dL. She does not take any NSAIDs or Ortez 2 inhibitors. She has no change in weight, leg edema or urinary symptoms. She was asked to hold ACEI given hyperkalemia but had been taking it all along. Her BP has been running low normal. She has no orthostatic symptoms. 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, managed as type 2 Surgical History Status post transcatheter aortic valve replacement (TAVR) using bioprosthesis Hx of cardiac cath History of tonsillectomy History of left cataract surgery History of hysterectomy History of cholecystectomy Family History Father Diabetes Hypertension Mother Diabetes Breast cancer Colon cancer Social History Housing: House Alcohol intake: current Alcohol intake frequency: holidays/special occasions only Patient Tobacco Use Status: Never used Tobacco e-Cigarette/Vaping Use: Never Used service: No Current occupational status: retired Cognitive needs: No Hearing needs: No Vision needs: No Review of Systems Const All systems reviewed & are unremarkable except as noted in HPI and below Physical Exam Vital Signs: Last Vital Signs Pulse 82 06/07/24 14:24 BP 122/70 06/07/24 14:24 Pulse Ox 95 06/07/24 14:24 Oxygen Delivery Method Room Air 06/07/24 14:24 BMI result Body Mass Index 30.8 Results Reviewed Nephrology Results: Hgb 10.5 g/dl (12.0-16.0) L 03/20/24 WBC 6.1 X10*3/uL (4.8-10.8) 03/20/24 Plt Count 204 X10*3/uL (160-400) 03/20/24 Sodium 141 mmol/L (135-145) 04/05/24 Potassium 5.1 mmol/L (3.3-5.1) 04/05/24 Chloride 109 mmol/L (96-108) H 04/05/24 Carbon Dioxide 22 mmol/L (22-29) 04/05/24 BUN 33 mg/dL (9-16) H 04/05/24 Creatinine 1.39 mg/dL (0.5-1.4) 04/05/24 Calcium 9.3 mg/dL (8.4-10.2) 04/05/24 Phosphorus 3.9 mg/dL (2.7-4.5) 02/20/24 PTH Intact 191.0 pg/mL (8.7-77.1) H 02/20/24 Urine Creatinine 133.11 mg/dL 02/20/24 Renal US 04/05/24 Assessment & Plan Assessment & Plan (1) Kidney disease, chronic, stage III (GFR 30-59 ml/min): Code(s): N18.30 - Chronic kidney disease, stage 3 unspecified Category: Medical Qualifiers: Chronic kidney disease stage 3 subtype: stage 3b (GFR 30-44) Qualified Code(s): N18.32 - Chronic kidney disease, stage 3b (2) Hyperkalemia: Code(s): E87.5 - Hyperkalemia Category: Medical (3) Hyperparathyroidism due to renal insufficiency: Code(s): N25.81 - Secondary hyperparathyroidism of renal origin Category: Medical Plan Sherry has stable CKD stage IIIB in the setting of longstanding hypertension, diabetes mellitus, obesity and coronary disease. In the past she did not have any significant proteinuria. She probably does not have overt diabetic nephropathy. Her serum creatinine is close to baseline. Maintain blood pressure less than 130/80 & hemoglobin A1c less than 7%. She will benefit from SGLT 2 inhibitors. I started her on lisinopril 5 mg daily. She could continue rest of current medications for now and keep a low K diet. Follow up labs ordered. F/U given.Answered all questions. Orders: Orders Creatinine 06/07/24 N18.32 - Chronic kidney disease, stage 3b Blood Urea Nitrogen 06/07/24 N18.32 - Chronic kidney disease, stage 3b Electrolytes 06/07/24 N18.32 - Chronic kidney disease, stage 3b Medications: New lisinopril 5 mg PO DAILY 90 tabs 3RF Coding Level of Care Code Est Pt Level 4 (96567) Diagnoses Stage 3b chronic kidney disease N18.32 Chronic kidney disease stage 3 subtype: stage 3b (GFR 30-44) Hyperkalemia E87.5 Hyperparathyroidism due to renal insufficiency N25.81
== END 2024-06-07 15:23 | disposition home or self-care (01) ==
PROVIDERS: PCP Internal Medicine; Visit Provider Internal Medicine Nephrology
DX: N18.32 Chronic kidney disease, stage 3b (principal); E87.5 Hyperkalemia; N25.81 Secondary hyperparathyroidism of renal origin
CPT/HCPCS: 99214

== ENCOUNTER → 2024-06-07 14:22 | Outpatient (BNVA) | payer MEDICARE, SELFPAY | PROVIDERS: PCP Internal Medicine; Visit Provider Internal Medicine Nephrology | DX: E11.22 Type 2 diabetes mellitus with diabetic chronic kidney disease (principal); N18.32 Chronic kidney disease, stage 3b; I12.9 Hypertensive chronic kidney disease with stage 1 through stage 4 chronic kidney disease, or unspecified chronic kidney disease; I25.10 Atherosclerotic heart disease of native coronary artery without angina pectoris; E78.5 Hyperlipidemia, unspecified; N25.81 Secondary hyperparathyroidism of renal origin | CPT/HCPCS: 99212 ==

== ENCOUNTER 2024-07-09 12:42 | Outpatient (REF) | payer MEDICARE, SELFPAY ==
[2024-07-09 16:14] LABS: MANUAL DIFF FLAG NO
[2024-07-09 16:19] LABS: Basophils Percent Auto 0.4 % (0-2); Eosinophils Absolute Auto 0.1 X10*3/uL (0.0-0.4); Eosinophils Percent Auto 1.4 % (0-4); Hematocrit 33.7 % (37.0-47.0); Hemoglobin 10.8 g/dl (12.0-16.0); Imm Gran Abs Auto 0.02 X10*3/uL (0.00-0.03); Imm Gran Pct Auto 0.3 % (0.0-0.4); Lymphocytes Absolute Auto 1.6 X10*3/uL (1.2-4.9); Lymphocytes Percent Auto 22.4 % (20-40); Mean Corpuscular Hemoglobin 32.8 pg (27.0-33.0); Mean Corpuscular Volume 102.4 fL (80.0-98.0); Monocytes Absolute Auto 0.5 X10*3/uL (0.1-1.2); Monocytes Percent Auto 7.6 % (2-11); Neutrophils Absolute Auto 4.7 x10*3/uL (2.0-8.3); Neutrophils Percent Auto 67.9 % (45-73); Platelet Count 167 X10*3/uL (160-400); Red Blood Count 3.29 X10*6/uL (4.20-5.50); Red Cell Distribution Width 14.3 % (11.0-16.0); White Blood Count 6.9 X10*3/uL (4.8-10.8)
[2024-07-09 16:57] LABS: Alanine Aminotransferase 17 U/L (0-31); Albumin Level 3.9 g/dL (3.5-5.0); Alkaline Phosphatase 64 U/L (39-117); Anion Gap 13 (12-20); Aspartate Amino Transferase 16 U/L (5-31); Bilirubin Total 0.6 mg/dL (0.0-1.0); Blood Urea Nitrogen 63 mg/dL (9-16); Calcium 9.4 mg/dL (8.4-10.2); Carbon Dioxide 21 mmol/L (22-29); Chloride 112 mmol/L (96-108); Estimated Glomerular Filt Rate 27; Glucose Random 236 mg/dL (60-115); Potassium 5.1 mmol/L (3.3-5.1); Sodium 141 mmol/L (135-145); Total Protein 6.7 g/dL (6.5-8.0)
[2024-07-09 17:03] LABS: Parathyroid Hormone Intact 201.6 pg/mL (8.7-77.1)
[2024-07-09 17:08] LABS: Estimated Average Glucose 177 mg/dL; Hemoglobin A1c % 7.8 % (<6.0)
[2024-07-09 17:17] LABS: TSH reflex Free T4 1.76 uIU/mL (0.32-4.0)
[2024-07-10 11:54] LABS: LDL Cholesterol Direct 51 mg/dL (<100)
== END 2024-07-09 12:43 | disposition home or self-care (01) ==
LOC: HO.HMGCLDS 12:42
PROVIDERS: PCP Internal Medicine; Visit Provider Internal Medicine Hypertension Specialist
DX: N28.9 Disorder of kidney and ureter, unspecified (principal); M19.90 Unspecified osteoarthritis, unspecified site; F41.1 Generalized anxiety disorder; M47.27 Other spondylosis with radiculopathy, lumbosacral region; Z92.29 Personal history of other drug therapy; N25.81 Secondary hyperparathyroidism of renal origin; D63.8 Anemia in other chronic diseases classified elsewhere; I12.9 Hypertensive chronic kidney disease with stage 1 through stage 4 chronic kidney disease, or unspecified chronic kidney disease; E11.22 Type 2 diabetes mellitus with diabetic chronic kidney disease; N18.32 Chronic kidney disease, stage 3b; Z79.01 Long term (current) use of anticoagulants
CPT/HCPCS: 36415; 80053; 83036; 83721; 83970; 84100; 84443; 85025; 85027

== ENCOUNTER 2024-07-11 09:24 | Outpatient (AMB) | payer MEDICARE, SELFPAY ==
--- NOTE | 2024-07-11 09:26 | HO.NEPHOV_ITS ---
Vital Signs 07/11/24 09:27 07/11/24 09:39 Height 5 ft 4 in Weight 181 lb BMI 31.1 BP 148/62 H 120/70 Blood Pressure Location Lt brachial Lt brachial Position Sitting Sitting Pulse 88 Pulse Source Pulse Oximeter Pulse Oximetry (%) 96 Oxygen Delivery Method Room Air Intake Visit Reasons: Essential hypertension/ LVM Straightedge Man Required: No Accompanied by: Self / Same As Patient Allergies Penicillins [PCN] Allergy (Mild, Verified 07/11/24 09:29) RASH Medication List - Last Reconciled 07/11/24 by Claudio Blakely MD [updraft machine As directed] albuterol sulfate 90 mcg/actuation (ProAir HFA) 1 inh inhalation QID PRN 30 days albuterol sulfate 0.63 mg (3 mL) inhalation QID PRN allopurinol 100 mg PO DAILY aspirin 81 mg PO DAILY atenolol 50 mg PO DAILY atorvastatin 40 mg PO DAILY calcitriol 0.25 mcg PO 3XW ferrous sulfate 325 mg PO DAILY furosemide 20 mg PO DAILY glipizide 2 tabs in am, 1 tab in pm orally lisinopril 5 mg PO DAILY oxycodone 5 mg PO BID PRN 30 days sodium bicarbonate 650 mg PO DAILY HPI Comments Details: Lorena Cloud is an 83-year-old female with a history of hypertension, diabetes, hyperlipidemia, first-degree AV block, CAD status post 2 cardiac catheterization with stent placements, severe aortic stenosis s/p TAVR March 2023 She has stage IIIB CKD. Her baseline serum creatinine has been around 1.4-1.7 mg/dL. She was being followed by Dr. Moshe Em. 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 From renal standpoint she has no specific complaints. She had missed readings high salt diet. She does not take any NSAIDs or Ortez 2 inhibitors. She continues have shortness of breath on exertion. No change in weight. She has leg edema. No urinary symptoms. 11/20/23 Tolerating Lasix 20 mg QD Lost 5 lbs No dyspnea 02/19/24 c/o Cough x 3 week;CXR normal;Waiting for ECHO 04/08/2024. Overall feels better. No further cough. Accompanied by daughter. 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, managed as type 2 Surgical History Status post transcatheter aortic valve replacement (TAVR) using bioprosthesis Hx of cardiac cath History of tonsillectomy History of left cataract surgery History of hysterectomy History of cholecystectomy Family History Father Diabetes Hypertension Mother Diabetes Breast cancer Colon cancer Social History Housing: House Alcohol intake: current Alcohol intake frequency: holidays/special occasions only Patient Tobacco Use Status: Never used Tobacco e-Cigarette/Vaping Use: Never Used service: No Current occupational status: retired Cognitive needs: No Hearing needs: No Vision needs: No Physical Exam Vital Signs: Last Vital Signs Pulse 88 07/11/24 09:27 BP 148/62 H 07/11/24 09:27 Pulse Ox 96 07/11/24 09:27 Oxygen Delivery Method Room Air 07/11/24 09:27 BMI result Body Mass Index 31.1 Const General: comfortable Nutritional Appearance: well nourished Orientation/consciousness: patient oriented x3 HEENT Head: No normal to inspection Mouth: moist mucous membranes Neck Neck: Yes supple and Yes no JVD Resp Auscultation: clear to auscultation bilaterally and no rales Cardio Jugular venous distension: no JVD Palpation: no palpable S3 and no palpable S4 Heart sounds: no rubs GI Palpation (GI): Soft to palpation and nontender Percussion: No Fluid wave present General: Yes no CVA tenderness Back/Spine/Pelvis Back: no CVA tenderness Skin General skin exam: no rashes or lesions noted Neuro General: patient oriented x3 Extrem General: Yes no pedal edema and No clubbing Results Reviewed Nephrology Results: Hgb 10.8 g/dl (12.0-16.0) L 07/09/24 WBC 6.9 X10*3/uL (4.8-10.8) 07/09/24 Plt Count 167 X10*3/uL (160-400) 07/09/24 Sodium 141 mmol/L (135-145) 07/09/24 Potassium 5.1 mmol/L (3.3-5.1) 07/09/24 Chloride 112 mmol/L (96-108) H 07/09/24 Carbon Dioxide 21 mmol/L (22-29) L 07/09/24 BUN 63 mg/dL (9-16) H 07/09/24 Creatinine 1.78 mg/dL (0.5-1.4) H 07/09/24 Calcium 9.4 mg/dL (8.4-10.2) 07/09/24 Phosphorus 4.0 mg/dL (2.7-4.5) 07/09/24 PTH Intact 201.6 pg/mL (8.7-77.1) H 07/09/24 Renal US 04/05/24 Assessment & Plan Assessment & Plan (1) Kidney disease, chronic, stage III (GFR 30-59 ml/min): Code(s): N18.30 - Chronic kidney disease, stage 3 unspecified Category: Medical Qualifiers: Chronic kidney disease stage 3 subtype: stage 3b (GFR 30-44) Qualified Code(s): N18.32 - Chronic kidney disease, stage 3b Plan: . Sherry has stable CKD stage IIIB unit setting of longstanding hypertension diabetes mellitus obesity and coronary disease. In the past she did not have any significant proteinuria. She probably does not have overt diabetic nephropathy. Marginal increase in Creatinine after the addition of Lasix- expected Creatinine is close to baseline. Goal is to slow the progression of renal disease. Maintain blood pressure less than 130/80 Maintain hemoglobin A1c less than 7% Continue with Marcio inhibitors for renal protection. She might benefit from SGLT 2 inhibitors. . (2) Essential hypertension: Code(s): I10 - Essential (primary) hypertension Category: Medical Plan: . Blood pressure is elevated initially Repeat blood pressure was better. Encouraged to monitor blood pressure at home and if systolic blood pressure is elevated we can readdress this Discussed weight loss. She should stay on low-sodium diet (3) Anemia: Code(s): D64.9 - Anemia, unspecified Category: Medical Qualifiers: Anemia type: due to chronic kidney disease Chronic kidney disease stage 3 subtype: stage 3b (GFR 30-44) Plan: . 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 No absolute indication for erythropoietin injections. Shall follow hemoglobin closely . (4) CAD (coronary artery disease): Comment: 05/24/22 Prox LAD 70% stenosis and MIL placed, Mid LCx 70% stenosis, planned for staged PCI, AV mean gradiant 28mmhg; 03/30/2023, TAVR Dr. Dockery Code(s): I25.10 - Atherosclerotic heart disease of [place] coronary artery without angina pectoris Category: Medical Qualifiers: Coronary Disease-Associated Artery/Lesion type: unspecified vessel or lesion type Plan: . Echocardiogram unremarkable As per Cardiology . (5) Secondary hyperparathyroidism: Code(s): N25.81 - Secondary hyperparathyroidism of renal origin Category: Medical Plan: . on Calcitriol 0.25 mcg 3 x week PTH was 206. shall follow . Orders: Orders Basic Metabolic Panel 4 Months I10 - Essential (primary) hypertension Parathyroid Hormone Intact 4 Months I10 - Essential (primary) hypertension Complete Blood Count Auto Diff 4 Months I10 - Essential (primary) hypertension Coding Level of Care Code Est Pt Level 4 (55737) Diagnoses Stage 3b chronic kidney disease N18.32 Chronic kidney disease stage 3 subtype: stage 3b (GFR 30-44) Essential hypertension I10 Anemia D64.9 Anemia type: due to chronic kidney disease Chronic kidney disease stage 3 subtype: stage 3b (GFR 30-44) CAD (coronary artery disease) I25.10 Coronary Disease-Associated Artery/Lesion type: unspecified vessel or lesion type Secondary hyperparathyroidism N25.81
[2024-07-11 09:27] VITALS: BP 148/62; PULSE 88; O2SAT 96; BMI 31.1
[2024-07-11 09:39] VITALS: BP 120/70
== END 2024-07-11 09:45 | disposition home or self-care (01) ==
PROVIDERS: PCP Internal Medicine; Visit Provider Internal Medicine Hypertension Specialist
DX: N18.32 Chronic kidney disease, stage 3b (principal); I10 Essential (primary) hypertension; D64.9 Anemia, unspecified; I25.10 Atherosclerotic heart disease of native coronary artery without angina pectoris; N25.81 Secondary hyperparathyroidism of renal origin
CPT/HCPCS: 99214

== ENCOUNTER → 2024-07-11 09:24 | Outpatient (BNVA) | payer MEDICARE, SELFPAY | PROVIDERS: PCP Internal Medicine; Visit Provider Internal Medicine Hypertension Specialist | DX: I12.9 Hypertensive chronic kidney disease with stage 1 through stage 4 chronic kidney disease, or unspecified chronic kidney disease (principal); N18.32 Chronic kidney disease, stage 3b; N25.81 Secondary hyperparathyroidism of renal origin; I25.10 Atherosclerotic heart disease of native coronary artery without angina pectoris; D64.9 Anemia, unspecified | CPT/HCPCS: 99212 ==

== ENCOUNTER 2024-09-19 13:15 | Outpatient (AMB) | payer MEDICARE, SELFPAY ==
--- NOTE | 2024-09-19 13:19 | AM.OFFWIN_ITS ---
Intake Vital Signs 09/19/24 13:22 Weight 181 lb BP 130/80 Blood Pressure Location Rt brachial Position Sitting Pulse 87 Pulse Source Pulse Oximeter Temp 97.8 F Temp Source Oral Pulse Oximetry (%) 94 Oxygen Delivery Method Room Air Intake Visit Reasons: EP severe cough for over a week Intake Note: Patient here for cough, congestion, nausea,vomiting and diarrhea that has been present for 1 week. Patient Tobacco Use Status: Never used Tobacco Allergies Penicillins [PCN] Allergy (Mild, Verified 09/19/24 13:22) RASH Do you need a note to return to daycare/school/sports/work: No HPI HPI Comments History of Present Illness Details The patient is an 84-year-old female presenting with complaints of cough and shortness of breath. The cough has persisted for approximately two weeks and is notably worse at night, especially when lying down. The patient describes expectorating clear sputum but denies any associated fevers or nasal congestion. There is a reported history of pneumonia, which the patient is concerned might be recurring. The patient also experiences shortness of breath and uses an inhaler as needed, although she denies a formal diagnosis of asthma or chronic obstructive pulmonary disease. Previously, the inhaler was prescribed for wheezing associated with bronchitis. The patient has not taken any antibio tics for the current symptoms, although Mucinex is used for cough relief. She reports a similar illness affecting family members, with her grandson having recovered from a cough after taking amoxicillin. The patient underwent mechanical heart valve replacement, without further detail on the date or indication during this conversation. 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, managed as type 2 Surgical History Status post transcatheter aortic valve replacement (TAVR) using bioprosthesis Hx of cardiac cath History of tonsillectomy History of left cataract surgery History of hysterectomy History of cholecystectomy Family History Father Diabetes Hypertension Mother Diabetes Breast cancer Colon cancer Social History Housing: House Alcohol intake: current Alcohol intake frequency: holidays/special occasions only Patient Tobacco Use Status: Never used Tobacco e-Cigarette/Vaping Use: Never Used service: No Current occupational status: retired Cognitive needs: No Hearing needs: No Vision needs: No Review of Systems Const All systems reviewed & are unremarkable except as noted in HPI and below Physical Exam Vital Signs: Last Vital Signs Temp 97.8 F 09/19/24 13:22 Pulse 87 09/19/24 13:22 BP 130/80 09/19/24 13:22 Pulse Ox 94 09/19/24 13:22 Oxygen Delivery Method Room Air 09/19/24 13:22 General: Cooperative, healthy appearing, comfortable and no acute distress Orientation/consciousness: Patient oriented x3 Limitations: No limitations Head: Normal to inspection Ears: Hearing grossly normal bilaterally, external ears normal and TM normal left ear, cerumen blocking the TM in the right ear Nose: Normal external nose present, Normal nares present and No nasal discharge present Face and sinus: Normal facial exam and Yes sinuses nontender Mouth: Normal oral and palatal mucosa present and moist mucous membranes Throat: Yes tonsils normal, Yes uvula midline. Posterior oropharynx erythema Eyes: Appearance normal, both eyes and all related structures Neck: Normal visual inspection Respiratory: Vesicular lung sounds throughout. Normal respiratory effort, able to speak in complete sentences, Actively coughing, no respiratory distress, not tachypneic, no tripod positioning and no use of accessory muscles Cardiovascular: Regular rate and rhythm. Normal S1 and S2, mechanical valve auscultated Skin: No rashes or lesions noted Neuro: Patient oriented x3 Extremities: Normal to inspection and Yes no clubbing, cyanosis or edema Assessment & Plan Assessment & Plan (1) URI, acute: Code(s): J06.9 - Acute upper respiratory infection, unspecified Plan: VSS, pt well appearing, lung sounds vesicular, For the patient's cough and dyspnea, the following steps will be taken: - A chest X-ray will be obtained to rule out pneumonia. - Send tests for influenza, SARS-CoV-2, and RSV for further assessment. - If pneumonia is confirmed, prescribe Augmentin amoxicillin/clavulanate for appropriate antibiotic coverage. - Regardless of X-ray results, a Z-Alvarez azithromycin) will be prescribed to address potential walking pneumonia or atypical bacterial pathogens. - The patient will be provided with a prescription for Tessalon Perles as a cough suppressant, with instruction to use primarily at night to minimize coughing and improve sleep. - Advise continued use of Mucinex as needed for symptomatic relief. Patient was informed and verbally consented to the use of an ambient scribe for clinic note documentation during this visit Orders: Orders XR chest 2V Today R05.9 - Cough, unspecified SARS-CoV2/FLU/RSV Today J06.9 - Acute upper respiratory infection, unspecified Medications: New benzonatate 200 mg PO TID PRN 14 caps 0RF cough azithromycin For 250 mg dose pack: take 500 mg today (day 1), then 250 mg for 4 days (days 2-5) PO 6 tabs 0RF Coding Level of Care Code Est Pt Level 4 (69721) Diagnoses URI, acute J06.9
[2024-09-19 13:22] VITALS: BP 130/80; PULSE 87; TEMP 36.6; O2SAT 94
== END 2024-09-19 14:40 | disposition home or self-care (01) ==
PROVIDERS: PCP Internal Medicine; Visit Provider Physician Assistant
DX: J06.9 Acute upper respiratory infection, unspecified (principal)

== ENCOUNTER 2024-09-19 13:15 | Outpatient (REF) | payer MEDICARE, SELFPAY ==
--- NOTE | ~2024-09-19 | XR_ITS ---
EXAMINATION: XR CHEST CLINICAL INFORMATION: R05.9 - Cough, unspecified COMPARISON: Chest radiograph 01/30/2024. TECHNIQUE: 2 views of the chest were obtained. FINDINGS: The lungs are adequately expanded. No focal consolidation. No pleural effusions or pneumothorax. The cardiac mediastinal silhouette is within normal limits. TAVR stent in similar position. Coronary artery calcifications. Degenerative changes of the thoracic spine. No acute osseous abnormality. XR/XR chest 2V IMPRESSION: No acute pulmonary disease. Electronically signed by: Nick Madrigal MD 09/20/2024 08:14 AM [facility]
== END 2024-09-19 13:16 | disposition home or self-care (01) ==
LOC: HO.HMGCX 13:15
PROVIDERS: PCP Internal Medicine; Visit Provider Physician Assistant
DX: Z13.89 Encounter for screening for other disorder (principal)
CPT/HCPCS: 71046; 99212

== ENCOUNTER 2024-09-19 14:01 | Outpatient (REF) | payer MEDICARE, SELFPAY ==
[2024-09-19 17:44] LABS: Influenza A PCR NEGATIVE (Negative); Influenza B PCR NEGATIVE (Negative); Resp Syncy Virus RNA Qual PCR NEGATIVE (Negative); SARS COV2 PCR INHOUSE NEGATIVE (Negative)
== END 2024-09-19 14:02 | disposition home or self-care (01) ==
LOC: HO.LAB 14:01
PROVIDERS: Visit Provider Physician Assistant
DX: R06.9 Unspecified abnormalities of breathing (principal); R05.9 Cough, unspecified
CPT/HCPCS: 0241U; 71046; 99212

== ENCOUNTER 2024-09-25 10:50 | Outpatient (AMB) | payer MEDICARE, SELFPAY ==
[2024-09-25 10:56] VITALS: BP 136/84; PULSE 82; O2SAT 96; BMI 31.1
--- NOTE | 2024-09-25 10:56 | MHC.PC.OV ---
Vital Signs 09/25/24 10:56 Height 5 ft 4 in Weight 181 lb 6 oz BMI 31.1 BP 136/84 Blood Pressure Location Lt brachial Position Sitting Pulse 82 Pulse Source Pulse Oximeter Pulse Oximetry (%) 96 Oxygen Delivery Method Room Air Intake Visit Reasons: [place] F/U Allergies Penicillins [PCN] Allergy (Mild, Verified 09/19/24 13:22) RASH Medication List - Last Reviewed 09/25/24 by Rob Simmons MA [updraft machine As directed] albuterol sulfate 0.63 mg (3 mL) inhalation QID PRN albuterol sulfate 90 mcg/actuation 1 inh inhalation QID PRN 30 days allopurinol 100 mg PO DAILY aspirin 81 mg PO DAILY atenolol 50 mg PO DAILY atorvastatin 40 mg PO DAILY calcitriol 0.25 mcg PO 3XW ferrous sulfate 325 mg PO DAILY furosemide 20 mg PO DAILY glipizide 2 tabs in am, 1 tab in pm orally lisinopril 5 mg PO DAILY oxycodone 5 mg PO BID PRN 30 days sodium bicarbonate 650 mg PO BID Tobacco use date assessed: 03/20/24 Dental Screening Dental Screen Date: 03/20/24 HPI [place] F/U HPI Details Patient is 84-year-old female who was evaluated in walk-in clinic of this month for upper respiratory tract infection Chest x-ray was taken to rule out pneumonia Influenza COVID and RSV test was taken She was given a script for azithromycin And Tessalon Perles for coughing She was advised to take Mucinex for symptomatic relief Her chest x-ray did not show any pneumonia She came in today for re-evaluation as she continued to have the cough Patient continued to have mostly at night unable to sleep She is using updraft 2 times a day On examination she has rhonchi both sides bases which clears with coughing I am treating her with azithromycin again along with Medrol Dosepak Patient was instructed to start using updraft machine every 8 hour Follow-up 10 days [facility] Medical History Pre-op evaluation Chest discomfort Viral syndrome Fall Encounter for general adult medical examination with abnormal findings Shortness of breath Hip pain, right Right leg pain Tracheobronchitis Hypertension, essential Spondylosis of lumbosacral spine with radiculopathy Elevated uric acid in blood Anxiety, generalized 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, managed as type 2 Surgical History Status post transcatheter aortic valve replacement (TAVR) using bioprosthesis Hx of cardiac cath History of tonsillectomy History of left cataract surgery History of hysterectomy History of cholecystectomy Family History Father Diabetes Hypertension Mother Diabetes Breast cancer Colon cancer Social History Housing: House Alcohol intake: current Alcohol intake frequency: holidays/special occasions only Patient Tobacco Use Status: Never used Tobacco e-Cigarette/Vaping Use: Never Used service: No Current occupational status: retired Cognitive needs: No Hearing needs: No Vision needs: No Questionnaire Thrive Questionnaire Date Thrive assessed: 06/08/22 KAYLA-7 AMB Questionnaire KAYLA-7 Date KAYLA - 7 assessed: 08/25/23 Source: Developed by Drs. Davis Clark, Molly Weems, Timothy Guillen and colleagues, with an educational margie from [employer]. Review of Systems Const Denies chills and Denies fever(s) ENT Denies epistaxis and Denies nasal discharge Card Denies chest pain Resp Denies hemoptysis GI Denies diarrhea and Denies nausea Skin/Breast Denies rash Neuro Reports no additional complaints Psych Reports no additional complaints Endo Reports no additional complaints Physical exam (Primary Care) Vital Signs: Last Vital Signs Pulse 82 09/25/24 10:56 BP 136/84 09/25/24 10:56 Pulse Ox 96 09/25/24 10:56 Oxygen Delivery Method Room Air 09/25/24 10:56 BMI result Body Mass Index 31.1 Tobacco/Smoking Status: Tobacco use Status Tobacco use date assessed 03/20/24 09/25/24 10:57 Patient Tobacco Use Status Never used Tobacco 09/25/24 10:57 e-Cigarette/Vaping Use Never Used 09/25/24 10:57 Thrive Assessment: Date of Thrive Assessment Date Thrive assessed 06/08/22 09/25/24 10:57 Const General: cooperative, comfortable and no acute distress Orientation/consciousness: patient oriented x3 HENMT Head: Yes normocephalic Eyes General: appearance normal, both eyes and all related structures Neck Neck: Yes supple Resp Effort & Inspection: normal respiratory effort, no cough and no stridor Cardio Rhythm: regular rhythm Heart sounds: S1 normal heart sound present and S2 normal heart sound present Skin General skin exam: turgor normal Neuro General: patient oriented x3, tone normal and moves all extremities Extrem Right lower extremity: no edema Left lower extremity: no edema Coding Level of Care Code Est Pt Level 3 (27949) Diagnoses Acute bronchitis due to other specified organisms J20.8 Bronchitis organism: other organism Assessment & Plan Assessment & Plan (1) Acute bronchitis: Code(s): J20.9 - Acute bronchitis, unspecified Category: Medical Qualifiers: Bronchitis organism: other organism Qualified Code(s): J20.8 - Acute bronchitis due to other specified organisms Plan Patient is 84-year-old female who was evaluated in walk-in clinic of this month for upper respiratory tract infection Chest x-ray was taken to rule out pneumonia Influenza COVID and RSV test was taken She was given a script for azithromycin And Tessalon Perles for coughing She was advised to take Mucinex for symptomatic relief Her chest x-ray did not show any pneumonia She came in today for re-evaluation as she continued to have the cough Patient continued to have mostly at night unable to sleep She is using updraft 2 times a day On examination she has rhonchi both sides bases which clears with coughing I am treating her with azithromycin again along with Medrol Dosepak Patient was instructed to start using updraft machine every 8 hour Follow-up 10 days Medications: New methylprednisolone (Medrol (Alvarez)) PO PER PKG DIR 21 ea 0RF 6 days azithromycin Take 2 tablets today then 1 daily 250 mg PO ONCE 6 tabs 0RF 5 days J06.9 - Acute upper respiratory infection, unspecified
== END 2024-09-25 12:09 | disposition home or self-care (01) ==
PROVIDERS: PCP Internal Medicine; Visit Provider Internal Medicine
DX: J20.8 Acute bronchitis due to other specified organisms (principal)

== ENCOUNTER → 2024-09-25 10:50 | Outpatient (BNVA) | payer MEDICARE, SELFPAY | PROVIDERS: PCP Internal Medicine; Visit Provider Internal Medicine | DX: J20.8 Acute bronchitis due to other specified organisms (principal) | CPT/HCPCS: 99212 ==

== ENCOUNTER 2024-10-04 12:57 | Outpatient (AMB) | payer MEDICARE, SELFPAY ==
[2024-10-04 13:03] VITALS: BP 130/82; PULSE 64; O2SAT 97; BMI 31.3
--- NOTE | 2024-10-04 13:03 | MHC.PC.OV ---
Vital Signs 10/04/24 13:03 Height 5 ft 4 in Weight 182 lb 2 oz BMI 31.3 BP 130/82 Blood Pressure Location Lt brachial Position Sitting Pulse 64 Pulse Source Pulse Oximeter Pulse Oximetry (%) 97 Oxygen Delivery Method Room Air Intake Visit Reasons: 10 day follow up Allergies Penicillins [PCN] Allergy (Mild, Verified 09/19/24 13:22) RASH Medication List - Last Reconciled 10/04/24 by León Cannon MD [updraft machine As directed] albuterol sulfate 0.63 mg (3 mL) inhalation QID PRN albuterol sulfate 90 mcg/actuation 1 inh inhalation QID PRN 30 days allopurinol 100 mg PO DAILY aspirin 81 mg PO DAILY atenolol 50 mg PO DAILY atorvastatin 40 mg PO DAILY calcitriol 0.25 mcg PO 3XW ferrous sulfate 325 mg PO DAILY furosemide 20 mg PO DAILY glipizide 2 tabs in am, 1 tab in pm orally lisinopril 5 mg PO DAILY oxycodone 5 mg PO BID PRN 30 days sodium bicarbonate 650 mg PO BID Tobacco use date assessed: 03/20/24 Dental Screening Dental Screen Date: 03/20/24 HPI 10 day follow up HPI Details Chief Complaint The patient came in to have a polyp of bronchitis Assessment and Plan 84-year-old female with a history of hypertension, degenerative disk disease, and osteoarthritis presenting with on going acute cough. The patient reports improvement in symptoms following recent illness, with a negative chest X-ray ruling out pneumonia. Mucus production is noted, attributed to inflammation from a recent infection. The patient also experiences back pain and has been going to pain management [facility] . Medication management was addressed, specifically regarding oxycodone for pain management. Based on the review and physical examination, the patient's cough is resolving, and lungs are clear. The patient's appointment for a physical exam is planned. 1. Acute Cough The patient is advised to take cough medicine at night and cough it up during the day to clear mucus. No pneumonia is evident, indicating improvement. Lung examination reveals clear lungs. 2. Back Pain With Degenerative Disk Disease The patient experiences morning stiffness and pain, exacerbated by degenerative changes. Advised to take a hot shower in the morning to alleviate symptoms and use a walker for support. Continue oxycodone management as needed. 3. Medication Management Oxycodone Prescription for oxycodone will be refilled as requested. Discussed coordination with pain management and consideration of nonsurgical options as per discussion with the kidney doctor. 4. Osteoarthritis The patient is advised that arthritis contributes to back pain. Continuing current pain management strategies including hot showers and oxycodone as needed. 5. Hypertension Blood pressure is stable. No change in management is indicated at this time. Regular monitoring is implied. Problem List - Acute Cough - Back Pain - Degenerative Disk Disease - Osteoarthritis - Hypertension - Medication Management (Oxycodone) Patient Instructions - Use prescribed cough medicine at night, and try to expel mucus during the day. - Continue taking hot showers in the morning to relieve back pain and use a walker for safe mobility. - Follow-up with pain management on the use of medication and potential for non-invasive treatments. - Monitor blood pressure regularly and maintain current management. 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, managed as type 2 Surgical History Status post transcatheter aortic valve replacement (TAVR) using bioprosthesis Hx of cardiac cath History of tonsillectomy History of left cataract surgery History of hysterectomy History of cholecystectomy Family History Father Diabetes Hypertension Mother Diabetes Breast cancer Colon cancer Social History Housing: House Alcohol intake: current Alcohol intake frequency: holidays/special occasions only Patient Tobacco Use Status: Never used Tobacco e-Cigarette/Vaping Use: Never Used service: No Current occupational status: retired Cognitive needs: No Hearing needs: No Vision needs: No Questionnaire PHQ-9 Over the last 2 weeks, how often have you been bothered by any of the following problems? 1. Little interest or pleasure in doing things: not at all 2. Feeling down, depressed, or hopeless: not at all 3. Trouble falling or staying asleep, or sleeping too much: not at all 4. Feeling tired or having little energy: not at all 5. Poor appetite or overeating: not at all 6. Feeling bad about yourself - or that you are a failure or have let yourself or your family down: not at all 7. Trouble concentrating on things, such as reading the newspaper or watching television: not at all 8. Moving or speaking so slowly that other people could have noticed. Or the opposite - being so fidgety or restless that you have been moving around a lot more than usual: not at all 9. Thoughts that you would be better off or of hurting yourself in some way: not at all Total score: 0 Depression Screening Interpretation: Negative Depression Screening Done: Yes 51013 - PHQ-9 Billing: Yes Source: Developed by Drs. Davis Clark, Molly Weems, Timothy Guillen and colleagues, with an educational margie from [employer]. Thrive Questionnaire Date Thrive assessed: 06/08/22 I am a: Patient What is your living situation today?: I have a steady place to live Within the past 12 months, did the food you bought not last and you didn't have the money to get more?: Often true Within the past 12 months, did you worry whether your food would run out before you got money to buy more?: I choose not to answer this question Do you have trouble paying for medicines?: No Do you have trouble getting transportation to medical appointments?: No Do you have trouble paying your heating and electricity bill?: No Do you have trouble taking care of your child, family member or friend?: No Do you have trouble with day-to-day activities such as bathing, preparing meals, shopping, managing finances, etc.?: No Are you currently unemployed and looking for a job?: No Are you interested in more education?: No Please select the resources that you would like help with: None Currently or been in a relationship where the following occur: I choose not to answer THRIVE Score: 1 AUDIT C Alcohol Use Questionnaire (AUDIT-C) 1. How often do you have a drink containing alcohol?: Monthly or less 2. How many drinks containing alcohol do you have on a typical day when you are drinking?: 1 or 2 3. How often do you have six or more drinks on one occasion?: Never Total Score: 1 KAYLA-7 AMB Questionnaire KAYLA-7 Date KAYLA - 7 assessed: 08/25/23 Feeling nervous, anxious, or on edge: 0 = Not at all Not being able to stop or control worryin = Not at all Worrying too much about different things: 0 = Not at all Trouble relaxin = Not at all Being so restless that it is hard to sit still: 0 = Not at all Becoming easily annoyed or irritable: 0 = Not at all Feeling afraid as if something awful might happen: 0 = Not at all Total KAYLA-7 score (0-4 normal; 5-9 mild; 10-14 moderate; 15-21 severe): 0 Source: Developed by Drs. Davis Clark, Molly Weems, Timothy Guillen and colleagues, with an educational margie from [employer]. Review of Systems Const Denies chills and Denies fever(s) ENT Denies epistaxis and Denies nasal discharge Card Denies chest pain Resp Denies hemoptysis GI Denies diarrhea and Denies nausea Skin/Breast Denies rash Neuro Reports no additional complaints Psych Reports no additional complaints Endo Reports no additional complaints Physical exam (Primary Care) Vital Signs: Last Vital Signs Pulse 64 10/04/24 13:03 BP 130/82 10/04/24 13:03 Pulse Ox 97 10/04/24 13:03 Oxygen Delivery Method Room Air 10/04/24 13:03 BMI result Body Mass Index 31.3 Tobacco/Smoking Status: Tobacco use Status Tobacco use date assessed 03/20/24 10/04/24 13:06 Patient Tobacco Use Status Never used Tobacco 10/04/24 13:06 e-Cigarette/Vaping Use Never Used 10/04/24 13:06 PHQ-9: PHQ-9 Score PHQ-9: Total score 0 10/04/24 13:06 Depression Screening Interpretation: Negative Thrive Assessment: Date of Thrive Assessment Date Thrive assessed 06/08/22 10/04/24 13:06 Currently or been in a relationship where the following occur: I choose not to answer Const General: cooperative, comfortable and no acute distress Orientation/consciousness: patient oriented x3 HENMT Head: Yes normocephalic Eyes General: appearance normal, both eyes and all related structures Neck Neck: Yes supple Resp Effort & Inspection: normal respiratory effort, no cough and no stridor Cardio Rhythm: regular rhythm Heart sounds: S1 normal heart sound present and S2 normal heart sound present Skin General skin exam: turgor normal Neuro General: patient oriented x3, tone normal and moves all extremities Extrem Right lower extremity: no edema Left lower extremity: no edema Coding Level of Care Code Est Pt Level 3 (39140) Diagnoses Acute bronchitis due to other specified organisms J20.8 Bronchitis organism: other organism HNP (herniated nucleus pulposus), lumbar M51.26 Left lumbar radiculitis M54.16 Additional Codes PHQ-9 - 26247 - PHQ-9 Billing: Yes ([id number]) Assessment & Plan Assessment & Plan (1) Acute bronchitis: Code(s): J20.9 - Acute bronchitis, unspecified Category: Medical Qualifiers: Bronchitis organism: other organism Qualified Code(s): J20.8 - Acute bronchitis due to other specified organisms (2) HNP (herniated nucleus pulposus), lumbar: Code(s): M51.26 - Other intervertebral disc displacement, lumbar region Category: Medical (3) Left lumbar radiculitis: Code(s): M54.16 - Radiculopathy, lumbar region Category: Medical Plan Chief Complaint The patient came in to have a polyp of bronchitis Assessment and Plan 84-year-old female with a history of hypertension, degenerative disk disease, and osteoarthritis presenting with on going acute cough. The patient reports improvement in symptoms following recent illness, with a negative chest X-ray ruling out pneumonia. Mucus production is noted, attributed to inflammation from a recent infection. The patient also experiences back pain and has been going to pain management [facility] . Medication management was addressed, specifically regarding oxycodone for pain management. Based on the review and physical examination, the patient's cough is resolving, and lungs are clear. The patient's appointment for a physical exam is planned. 1. Acute Cough The patient is advised to take cough medicine at night and cough it up during the day to clear mucus. No pneumonia is evident, indicating improvement. Lung examination reveals clear lungs. 2. Back Pain With Degenerative Disk Disease The patient experiences morning stiffness and pain, exacerbated by degenerative changes. Advised to take a hot shower in the morning to alleviate symptoms and use a walker for support. Continue oxycodone management as needed. 3. Medication Management Oxycodone Prescription for oxycodone will be refilled as requested. Discussed coordination with pain management and consideration of nonsurgical options as per discussion with the kidney doctor. 4. Osteoarthritis The patient is advised that arthritis contributes to back pain. Continuing current pain management strategies including hot showers and oxycodone as needed. 5. Hypertension Blood pressure is stable. No change in management is indicated at this time. Regular monitoring is implied. Problem List - Acute Cough - Back Pain - Degenerative Disk Disease - Osteoarthritis - Hypertension - Medication Management (Oxycodone) Patient Instructions - Use prescribed cough medicine at night, and try to expel mucus during the day. - Continue taking hot showers in the morning to relieve back pain and use a walker for safe mobility. - Follow-up with pain management on the use of medication and potential for non-invasive treatments. - Monitor blood pressure regularly and maintain current management. Medications: New benzonatate 200 mg PO .qhs 10 days PRN 10 caps 0RF cough Refilled oxycodone 5 mg PO BID 30 days PRN 60 tabs 0RF pain
== END 2024-10-04 14:33 | disposition home or self-care (01) ==
PROVIDERS: PCP Internal Medicine; Visit Provider Internal Medicine
DX: J20.8 Acute bronchitis due to other specified organisms (principal); M51.26 Other intervertebral disc displacement, lumbar region; M54.16 Radiculopathy, lumbar region

== ENCOUNTER → 2024-10-04 12:57 | Outpatient (BNVA) | payer MEDICARE, SELFPAY | PROVIDERS: PCP Internal Medicine; Visit Provider Internal Medicine | DX: J20.8 Acute bronchitis due to other specified organisms (principal); M51.26 Other intervertebral disc displacement, lumbar region; M54.16 Radiculopathy, lumbar region | CPT/HCPCS: 96127; 99212 ==

== ENCOUNTER 2024-11-08 13:13 | Outpatient (REF) | payer MEDICARE, SELFPAY ==
[2024-11-08 16:05] LABS: MANUAL DIFF FLAG NO
[2024-11-08 16:11] LABS: Basophils Percent Auto 0.6 % (0-2); Eosinophils Absolute Auto 0.2 X10*3/uL (0.0-0.4); Eosinophils Percent Auto 3.2 % (0-4); Hematocrit 34.4 % (37.0-47.0); Hemoglobin 10.9 g/dl (12.0-16.0); Imm Gran Abs Auto 0.01 X10*3/uL (0.00-0.03); Imm Gran Pct Auto 0.1 % (0.0-0.4); Lymphocytes Absolute Auto 2.1 X10*3/uL (1.2-4.9); Lymphocytes Percent Auto 29.2 % (20-40); Mean Corpuscular HGB Conc 31.7 g/dl (31.0-35.0); Mean Corpuscular Hemoglobin 33.3 pg (27.0-33.0); Mean Corpuscular Volume 105.2 fL (80.0-98.0); Mean Platelet Volume 9.3 fL (9.4-12.3); Monocytes Absolute Auto 0.6 X10*3/uL (0.1-1.2); Neutrophils Absolute Auto 4.1 x10*3/uL (2.0-8.3); Neutrophils Percent Auto 57.9 % (45-73); Platelet Count 208 X10*3/uL (160-400); Red Blood Count 3.27 X10*6/uL (4.20-5.50); Red Cell Distribution Width 14.2 % (11.0-16.0); White Blood Count 7.1 X10*3/uL (4.8-10.8)
[2024-11-08 16:33] LABS: Anion Gap 14 (12-20); Blood Urea Nitrogen 53 mg/dL (9-16); Carbon Dioxide 21 mmol/L (22-29); Chloride 115 mmol/L (96-108); Estimated Glomerular Filt Rate 24; Glucose Random 192 mg/dL (60-115); Potassium 5.9 mmol/L (3.3-5.1); Sodium 144 mmol/L (135-145)
[2024-11-08 16:39] LABS: Parathyroid Hormone Intact 254.5 pg/mL (8.7-77.1)
== END 2024-11-08 13:14 | disposition home or self-care (01) ==
LOC: HO.HMGCLDS 13:13
PROVIDERS: PCP Internal Medicine; Referring Provider Internal Medicine Hypertension Specialist; Visit Provider Internal Medicine
DX: I10 Essential (primary) hypertension (principal)
CPT/HCPCS: 36415; 80048; 83970; 85025

== ENCOUNTER 2024-11-11 09:51 | Outpatient (AMB) | payer MEDICARE, SELFPAY ==
[2024-11-11 09:53] VITALS: BP 150/64; PULSE 78; O2SAT 99; BMI 31.2
--- NOTE | 2024-11-11 09:53 | HO.NEPHOV_ITS ---
Vital Signs 11/11/24 09:53 Height 5 ft 4 in Weight 182 lb BMI 31.2 BP 150/64 H Blood Pressure Location Rt brachial Position Sitting Pulse 78 Pulse Source Pulse Oximeter Pulse Oximetry (%) 99 Oxygen Delivery Method Room Air Intake Visit Reasons: Anemia/ LM Labor Custodian Required: No Accompanied by: Daughter Allergies Penicillins [PCN] Allergy (Mild, Verified 11/11/24 09:55) RASH Medication List - Last Reconciled 11/11/24 by Claudio Blakely MD [updraft machine As directed] albuterol sulfate 0.63 mg (3 mL) inhalation QID PRN albuterol sulfate 90 mcg/actuation 1 inh inhalation QID PRN 30 days allopurinol 100 mg PO DAILY aspirin 81 mg PO DAILY atenolol 50 mg PO DAILY atorvastatin 40 mg PO DAILY benzonatate 200 mg PO .qhs PRN 10 days calcitriol 0.25 mcg PO 3XW clopidogrel 75 mg PO DAILY ferrous sulfate 325 mg PO DAILY furosemide 20 mg PO DAILY glipizide 2 tabs in am, 1 tab in pm orally lisinopril 5 mg PO DAILY oxycodone 5 mg PO BID PRN 30 days sodium bicarbonate 650 mg PO BID sodium polystyrene sulfonate 30 grams PO ONCE HPI Comments Details: Lorena Cloud is an 83-year-old female with a history of hypertension, diabetes, hyperlipidemia, first-degree AV block, CAD status post 2 cardiac catheterization with stent placements, severe aortic stenosis s/p TAVR March 2023 She has stage IIIB CKD. Her baseline serum creatinine has been around 1.4-1.7 mg/dL. She was being followed by Dr. Moshe Em. Since his long term she has decided to switch her transition social worker. From renal standpoint she has no specific complaints. She had missed readings high salt diet. She does not take any NSAIDs or Ortez 2 inhibitors. She continues have shortness of breath on exertion. No change in weight. She has leg edema. No urinary symptoms. 11/20/23 Tolerating Lasix 20 mg QD Lost 5 lbs No dyspnea 02/19/24 c/o Cough x 3 week;CXR normal;Waiting for ECHO 04/08/2024. Overall feels better. No further cough. Accompanied by daughter. 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, managed as type 2 Surgical History Status post transcatheter aortic valve replacement (TAVR) using bioprosthesis Hx of cardiac cath History of tonsillectomy History of left cataract surgery History of hysterectomy History of cholecystectomy Family History Father Diabetes Hypertension Mother Diabetes Breast cancer Colon cancer Social History Housing: House Alcohol intake: current Alcohol intake frequency: holidays/special occasions only Patient Tobacco Use Status: Never used Tobacco e-Cigarette/Vaping Use: Never Used service: No Current occupational status: retired Cognitive needs: No Hearing needs: No Vision needs: No Physical Exam Vital Signs: Last Vital Signs Pulse 78 11/11/24 09:53 BP 150/64 H 11/11/24 09:53 Pulse Ox 99 11/11/24 09:53 Oxygen Delivery Method Room Air 11/11/24 09:53 BMI result Body Mass Index 31.2 Results Reviewed Nephrology Results: Hgb 10.9 g/dl (12.0-16.0) L 11/08/24 WBC 7.1 X10*3/uL (4.8-10.8) 11/08/24 Plt Count 208 X10*3/uL (160-400) 11/08/24 Sodium 144 mmol/L (135-145) 11/08/24 Potassium 5.9 mmol/L (3.3-5.1) H 11/08/24 Chloride 115 mmol/L (96-108) H 11/08/24 Carbon Dioxide 21 mmol/L (22-29) L 11/08/24 BUN 53 mg/dL (9-16) H 11/08/24 Creatinine 1.96 mg/dL (0.5-1.4) H 11/08/24 Calcium 9.0 mg/dL (8.4-10.2) 11/08/24 PTH Intact 254.5 pg/mL (8.7-77.1) H 11/08/24 Assessment & Plan Assessment & Plan (1) Kidney disease, chronic, stage III (GFR 30-59 ml/min): Code(s): N18.30 - Chronic kidney disease, stage 3 unspecified Category: Medical Qualifiers: Chronic kidney disease stage 3 subtype: stage 3b (GFR 30-44) Qualified Code(s): N18.32 - Chronic kidney disease, stage 3b Plan: . Sherry has stable CKD stage IIIB unit setting of longstanding hypertension diabetes mellitus obesity and coronary disease. In the past she did not have any significant proteinuria. She probably does not have overt diabetic nephropathy. Marginal increase in Creatinine after the addition of Lasix- expected Creatinine is close to baseline. Goal is to slow the progression of renal disease. Maintain blood pressure less than 130/80 Maintain hemoglobin A1c less than 7% Continue with Marcio inhibitors for renal protection. She might benefit from SGLT 2 inhibitors. Superimposed BENJI Increase PO fluids Recheck . (2) Essential hypertension: Code(s): I10 - Essential (primary) hypertension Category: Medical Plan: . Blood pressure is elevated initially Repeat blood pressure was better. Encouraged to monitor blood pressure at home and if systolic blood pressure is elevated we can readdress this Discussed weight loss. She should stay on low-sodium diet (3) Anemia: Code(s): D64.9 - Anemia, unspecified Category: Medical Qualifiers: Anemia type: due to chronic kidney disease Chronic kidney disease stage 3 subtype: stage 3b (GFR 30-44) Plan: . 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 No absolute indication for erythropoietin injections. Shall follow hemoglobin closely . (4) CAD (coronary artery disease): Comment: 05/24/22 Prox LAD 70% stenosis and MIL placed, Mid LCx 70% stenosis, planned for staged PCI, AV mean gradiant 28mmhg; 03/30/2023, TAVR Dr. Dockery Code(s): I25.10 - Atherosclerotic heart disease of creek coronary artery without angina pectoris Category: Medical Qualifiers: Coronary Disease-Associated Artery/Lesion type: unspecified vessel or lesion type Plan: . Echocardiogram unremarkable As per Cardiology . (5) Secondary hyperparathyroidism: Code(s): N25.81 - Secondary hyperparathyroidism of renal origin Category: Medical Plan: . on Calcitriol 0.25 mcg 3 x week PTH was 254. shall follow . (6) Hyperkalemia: Code(s): E87.5 - Hyperkalemia Category: Medical Plan: stay on Low K diet Kayexalate x 2 days Recheck labs Orders: Orders Basic Metabolic Panel 2 Weeks E87.5 - Hyperkalemia Coding Level of Care Code Est Pt Level 4 (44477) Diagnoses Stage 3b chronic kidney disease N18.32 Chronic kidney disease stage 3 subtype: stage 3b (GFR 30-44) Essential hypertension I10 Anemia D64.9 Anemia type: due to chronic kidney disease Chronic kidney disease stage 3 subtype: stage 3b (GFR 30-44) CAD (coronary artery disease) I25.10 Coronary Disease-Associated Artery/Lesion type: unspecified vessel or lesion type Secondary hyperparathyroidism N25.81 Hyperkalemia E87.5
== END 2024-11-11 10:07 | disposition home or self-care (01) ==
PROVIDERS: PCP Internal Medicine; Visit Provider Internal Medicine Hypertension Specialist
DX: I12.9 Hypertensive chronic kidney disease with stage 1 through stage 4 chronic kidney disease, or unspecified chronic kidney disease (principal); N18.32 Chronic kidney disease, stage 3b; D64.9 Anemia, unspecified; I25.10 Atherosclerotic heart disease of native coronary artery without angina pectoris; N25.81 Secondary hyperparathyroidism of renal origin; E87.5 Hyperkalemia
CPT/HCPCS: 99214

== ENCOUNTER → 2024-11-11 09:51 | Outpatient (BNVA) | payer MEDICARE, SELFPAY | PROVIDERS: PCP Internal Medicine; Visit Provider Internal Medicine Hypertension Specialist | DX: I12.9 Hypertensive chronic kidney disease with stage 1 through stage 4 chronic kidney disease, or unspecified chronic kidney disease (principal); N18.32 Chronic kidney disease, stage 3b; N25.81 Secondary hyperparathyroidism of renal origin; D64.9 Anemia, unspecified; I25.10 Atherosclerotic heart disease of native coronary artery without angina pectoris; E87.5 Hyperkalemia | CPT/HCPCS: 99212 ==

== ENCOUNTER 2024-12-18 12:01 | Outpatient (REF) | payer MEDICARE, SELFPAY ==
--- OUTSIDE RECORDS SUMMARY | 2024-12-18 12:34 | XMS_ITS | Encounter Summary ---
Author Organization [facility], Address [address] [place] [address] Phone Care Team Providers Care Area Loss Prevention Manager Name Role Phone León Cannon MD Primary Care Provider [phone] Encounter Details Date Type Department Care Team (Late st Contact Info) Description 05/29/2020 Orders Only [facility] - [address] [facility] [address] [place] [address] Judy Em MD Chronic kidney disease stage 3 (HCC) Social History Tobacco Use Types Packs/Day Years Used Date Smoking Tobacco: Never Alcohol Use Standard Drinks/Week Comments Yes 0 (1 standard drink = 0.6 oz pure alcohol) Alcoholic Drinks/day: Occasional social drink Comments Unknown Sex and Gender Information Value Date Recorded Sex Assigned at Not on file Legal Sex Female 4:34 PM EST Gender Identity Not on file Sexual Orientation Not on file documented as of this encounter Plan of Treatment Not on file documented as of this encounter Visit Diagnoses Diagnosis Chronic kidney disease stage 3 (HCC) documented in this encounter Care Teams Area Loss Prevention Manager Relationship Specialty Start Date End Date León Cannon MD [facility] [place] [id number] PCP - General 09/03/19 documented as of this encounter
--- OUTSIDE RECORDS SUMMARY | 2024-12-18 12:34 | XMS_ITS | Clinical Summary ---
Author Organization [facility], Address [address] [place] [phone] Phone Care Team Providers Care Vulcanizer Operator Name Role Phone León Cannon MD Primary Care Provider Allergies Active Allergy Reactions Criticality Noted Date Comments Penicillin G Other (see comments) 05/14/2021 Penicillins Other (see comments) 10/11/2019 Medications glipiZIDE (GLUCOTROL) 5 MG tablet Take 1 tablet by mouth 2 (two) times a day Active allopurinol (ZYLOPRIM) 100 MG tablet Take 1 tablet by mouth 1 (one) time each day Active escitalopram (LEXAPRO) 20 MG tablet Take 20 mg by mouth daily 08/29/2019 Active atenolol (TENORMIN) 50 MG tablet Take 50 mg by mouth in the morning. 11/04/2019 Active Cholecalciferol (VITAMIN D) 125 MCG (5000 UT) capsule Take 1 tablet by mouth daily Active oxyCODONE (ROXICODONE) 5 MG immediate release tablet Take 5 mg by mouth if needed 12/08/2021 Active aspirin (ST LISHA) 81 MG EC tablet Take 81 mg by mouth 05/24/2022 Active atorvastatin (LIPITOR) 40 MG tablet Take 40 mg by mouth 1 (one) time each day 05/24/2022 Active ticagrelor (BRILINTA) 90 MG tablet Take 90 mg by mouth 1 (one) time each day 05/24/2022 Active clopidogrel (PLAVIX) 75 MG tablet Take 75 mg by mouth 1 (one) time each day 06/28/2022 Active lisinopril 10 MG tablet Take 10 mg by mouth at bed time 06/15/2022 Active Active Problems Problem Noted Date Diagnosed Date Hypertensive disorder 2022 Stage 3b chronic kidney disease 12/21/2021 Anemia in chronic kidney disease 05/14/2021 Type 2 diabetes mellitus 11/22/2019 Hyperparathyroidism due to renal insufficiency 0 11/22/2019 Chronic kidney disease due to hypertension 11/22 Anemia 05/14/2012 Benign essential hypertension 02/09/2006 Immunizations Name Administration Dates Next Due H1N1 Inj Preservative Free 11/27/2009 Influenza Split High Dose Pr eservative Free IM 08/29/2019,08/22/2018,08/08/2018,07/21,10/03/2016,10/02/2015 Influenza TIV (IM) 08/22/2012, 1,10/01/2010,07/31,08/29/2007,09/04/2006,10/10/2005 Pneumococcal Polysaccharide 01/12/2015, 5 Family History Medical History Relation Comments Diabetes Father Heart disease Father [place] Hypertension Father Kidney disease Father Cancer Mother breast/colon Diabetes Mother Relation Status Comments Father Mother Social History Tobacco Use Types Packs/Day Years Used Date Smoking Tobacco: Never Alcohol Use Standard Drinks/Week Comments Yes 0 (1 standard drink = 0.6 oz pure alcohol) Alcoholic Drinks/day: Occasional social drink Comments Unknown Sex and Gender Information Value Date Recorded Sex Assigned at Not on file Legal Sex Female 4:34 PM EST Gender Identity Not on file Sexual Orientation Not on file Last Filed Vital Signs Vital Sign Reading Time Taken Comments Blood Pressure 145/68 01/23/2023 10:34 AM EDT Pulse 70 01/23/2023 10:34 AM EDT Temperature 36.7 ??C (98 ??F) 11/28/2019 10:23 AM EST Respiratory Rate 14 01/23/2023 10:34 AM EDT Oxygen Saturation - - Inhaled Oxygen Concentration - - Weight 85.7 kg (189 lb) 01/23/2023 10:34 AM EDT Height 162.6 cm (5' 4 ) 01/23/2023 10:34 AM EDT Body Mass Index 32.44 01/23/2023 10:34 AM EDT Plan of Treatment Health Maintenance Due Date Last Done Comments Pneumococcal Vaccine: 65+ Years (3 of 3 - PCV) 01/13/2016 01/12/2015, 10/10/2005 Diabetes: Hemoglobin A1C 11/22/2019 Diabetes: Ophthalmology Exam 11/22/2019 Diabetes: Pedal Pulse Checked 11/22/2019 Diabetes: Sensory Foot Exam 11/22/2019 Diabetes: Visual Foot Exam 11/22/2019 Influenza Vaccine (#1) 2024 9, 08/22/2018, 08/08/2018, Additional history exists Hepatitis B Vaccine Aged Out No longe r eligible based on patient's age to [place] [id number] [facility] [place] [id number] [place] [id number] Care Teams Vulcanizer Operator Relationship Specialty Start Date End Date León Cannon MD 1962 [facility] [place] [address] PCP - General 09/03/19
--- OUTSIDE RECORDS SUMMARY | 2024-12-18 12:34 | XMS_ITS | Encounter Summary ---
Author Organization [facility] [place], Address [address] [place] [address] Phone Care Team Providers Care Material Requirements Worker Name Role Phone León Cannon MD Primary Care Provider [phone] Encounter Details Date Type Department Care Team (Late st Contact Info) Description 01/11/2023 Documentation Only [facility] [place], [facility] [address] [phone] León Cannon MD 1962 [place], [place] Social History Tobacco Use Types Packs/Day Years [...] documented as of this encounter Visit Diagnoses Not on filedocumented in this encounter Care Teams Material Requirements Worker Relationship Specialty Start Date End Date León Cannon MD 1962 [place], [place] PCP - General 09/03/19 documented as of this encounter
--- OUTSIDE RECORDS SUMMARY | 2024-12-18 12:34 | XMS_ITS | Encounter Summary ---
Author Organization [facility] [place], Address [address] [place] [address] Phone Care Team Providers Care Necktie Maker Name Role Phone León Cannon MD Primary Care Provider [phone] Encounter Details Date Type Department Care Team (Late st Contact Info) Description 11/20/2020 Orders Only [facility] [place] [facility] [address] [facility] [address] [place] [address] Judy Em MD Chronic kidney disease stage 3 Social History Tobacco Use Types Packs/Day Years [...] (HCC) documented in this encounter Care Teams Necktie Maker Relationship Specialty Start Date End Date León Cannon MD [facility] [place] [address] PCP - General 09/03/19 documented as of this encounter
[2024-12-18 14:19] LABS: Anion Gap 11 (12-20); Blood Urea Nitrogen 48 mg/dL (9-16); Calcium 9.2 mg/dL (8.4-10.2); Carbon Dioxide 23 mmol/L (22-29); Chloride 111 mmol/L (96-108); Estimated Glomerular Filt Rate 28; Glucose Random 304 mg/dL (60-115); Potassium 5.4 mmol/L (3.3-5.1); Sodium 140 mmol/L (135-145)
== END 2024-12-18 12:02 | disposition home or self-care (01) ==
LOC: HO.HMGCLDS 12:01
PROVIDERS: PCP Internal Medicine; Visit Provider Internal Medicine Hypertension Specialist
DX: E87.5 Hyperkalemia (principal)
CPT/HCPCS: 36415; 80048

== ENCOUNTER 2024-12-19 14:13 | Outpatient (AMB) | payer MEDICARE, SELFPAY ==
[2024-12-19 14:17] VITALS: BP 146/80; PULSE 89; O2SAT 99; BMI 31.9
--- NOTE | 2024-12-19 14:17 | HO.NEPHOV_ITS ---
Vital Signs 12/19/24 14:17 12/19/24 14:35 Height 5 ft 4 in Weight 186 lb BMI 31.9 BP 146/80 H 144/70 H Blood Pressure Location Rt brachial Rt brachial Position Sitting Sitting Pulse 89 Pulse Source Pulse Oximeter Pulse Oximetry (%) 99 Oxygen Delivery Method Room Air Intake Visit Reasons: Anemia/ Conf Cardiac Nurse Specialist Required: No Accompanied by: Daughter Allergies Penicillins [PCN] Allergy (Mild, Verified 12/19/24 14:19) RASH Medication List - Last Reconciled 12/19/24 by Claudio Blakely MD [updraft machine As directed] albuterol sulfate 0.63 mg (3 mL) inhalation QID PRN albuterol sulfate 90 mcg/actuation 1 inh inhalation QID PRN 30 days allopurinol 100 mg PO DAILY aspirin 81 mg PO DAILY atenolol 50 mg PO DAILY atorvastatin 40 mg PO DAILY benzonatate 200 mg PO .qhs PRN 10 days calcitriol 0.25 mcg PO 3XW clopidogrel 75 mg PO DAILY ferrous sulfate 325 mg PO DAILY furosemide 20 mg PO DAILY glipizide 2 tabs in am, 1 tab in pm orally lisinopril 5 mg PO DAILY oxycodone 5 mg PO BID PRN 30 days sodium bicarbonate 650 mg PO BID HPI Comments Details: Lorena Cloud is an 83-year-old female with a history of hypertension, diabetes, hyperlipidemia, first-degree AV block, CAD status post 2 cardiac catheterization with stent placements, severe aortic stenosis s/p TAVR March 2023 She has stage IIIB CKD. Her baseline serum creatinine has been around 1.4-1.7 mg/dL. She was being followed by Dr. Moshe Em. 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 From renal standpoint she has no specific complaints. She had missed readings high salt diet. She does not take any NSAIDs or Ortez 2 inhibitors. She continues have shortness of breath on exertion. No change in weight. She has leg edema. No urinary symptoms. 11/20/23 Tolerating Lasix 20 mg QD Lost 5 lbs No dyspnea 02/19/24 c/o Cough x 3 week;CXR normal;Waiting for ECHO 04/08/2024. Overall feels better. No further cough. Accompanied by daughter. 07/11/24 Here for followup; She has no new issues; On Lisinopril 5 mg daily ;No dyspnea at rest ;No edema 11/11/24 Recently had resp tract infection ; Treated with antibiotics ;K was 5.9; Kayexalate was called in ;Yet to take it 12/19/24 Overall doing [facility] Medical History Pre-op evaluation Chest discomfort Viral syndrome Fall Encounter for general adult medical examination with abnormal findings Shortness of breath Hip pain, right Right leg pain Tracheobronchitis Hypertension, essential Spondylosis of lumbosacral spine with radiculopathy Elevated uric acid in blood Anxiety, generalized 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, managed as type 2 Surgical History Status post transcatheter aortic valve replacement (TAVR) using bioprosthesis Hx of cardiac cath History of tonsillectomy History of left cataract surgery History of hysterectomy History of cholecystectomy Family History Father Diabetes Hypertension Mother Diabetes Breast cancer Colon cancer Social History Housing: House Alcohol intake: current Alcohol intake frequency: holidays/special occasions only Patient Tobacco Use Status: Never used Tobacco e-Cigarette/Vaping Use: Never Used service: No Current occupational status: retired Cognitive needs: No Hearing needs: No Vision needs: No Physical Exam Vital Signs: Last Vital Signs Pulse 89 12/19/24 14:17 BP 146/80 H 12/19/24 14:17 Pulse Ox 99 12/19/24 14:17 Oxygen Delivery Method Room Air 12/19/24 14:17 BMI result Body Mass Index 31.9 Const General: comfortable Nutritional Appearance: well nourished Orientation/consciousness: patient oriented x3 HEENT Head: No normal to inspection Mouth: moist mucous membranes Neck Neck: Yes supple and Yes no JVD Resp Auscultation: clear to auscultation bilaterally and no rales Cardio Jugular venous distension: no JVD Palpation: no palpable S3 and no palpable S4 Heart sounds: no rubs GI Palpation (GI): Soft to palpation and nontender Percussion: No Fluid wave present General: Yes no CVA tenderness Back/Spine/Pelvis Back: no CVA tenderness Skin General skin exam: no rashes or lesions noted Neuro General: patient oriented x3 Extrem General: Yes no pedal edema and No clubbing Results Reviewed Nephrology Results: Hgb 10.9 g/dl (12.0-16.0) L 11/08/24 WBC 7.1 X10*3/uL (4.8-10.8) 11/08/24 Plt Count 208 X10*3/uL (160-400) 11/08/24 Sodium 140 mmol/L (135-145) 12/18/24 Potassium 5.4 mmol/L (3.3-5.1) H 12/18/24 Chloride 111 mmol/L (96-108) H 12/18/24 Carbon Dioxide 23 mmol/L (22-29) 12/18/24 BUN 48 mg/dL (9-16) H 12/18/24 Creatinine 1.72 mg/dL (0.5-1.4) H 12/18/24 Calcium 9.2 mg/dL (8.4-10.2) 12/18/24 PTH Intact 254.5 pg/mL (8.7-77.1) H 11/08/24 Assessment & Plan Assessment & Plan (1) Kidney disease, chronic, stage III (GFR 30-59 ml/min): Code(s): N18.30 - Chronic kidney disease, stage 3 unspecified Category: Medical Qualifiers: Chronic kidney disease stage 3 subtype: stage 3b (GFR 30-44) Qualified Code(s): N18.32 - Chronic kidney disease, stage 3b Plan: . Sherry has stable CKD stage IIIB unit setting of longstanding hypertension diabetes mellitus obesity and coronary disease. In the past she did not have any significant proteinuria. She probably does not have overt diabetic nephropathy. Marginal increase in Creatinine after the addition of Lasix- expected Creatinine is close to baseline. Goal is to slow the progression of renal disease. Maintain blood pressure less than 130/80 Maintain hemoglobin A1c less than 7% Continue with Marcio inhibitors for renal protection. She might benefit from SGLT 2 inhibitors. Superimposed BENJI Improved with hydration and back ot baseline . (2) Essential hypertension: Code(s): I10 - Essential (primary) hypertension Category: Medical Plan: . Blood pressure is elevated initially Repeat blood pressure was better. Encouraged to monitor blood pressure at home and if systolic blood pressure is elevated we can readdress this Discussed weight loss. She should stay on low-sodium diet (3) Anemia: Code(s): D64.9 - Anemia, unspecified Category: Medical Qualifiers: Anemia type: due to chronic kidney disease Chronic kidney disease stage 3 subtype: stage 3b (GFR 30-44) Plan: . 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 No absolute indication for erythropoietin injections. Shall follow hemoglobin closely . (4) CAD (coronary artery disease): Comment: 05/24/22 Prox LAD 70% stenosis and MIL placed, Mid LCx 70% stenosis, planned for staged PCI, AV mean gradiant 28mmhg; 03/30/2023, TAVR Dr. Dockery Code(s): I25.10 - Atherosclerotic heart disease of [place] coronary artery without angina pectoris Category: Medical Qualifiers: Coronary Disease-Associated Artery/Lesion type: unspecified vessel or l esion type Plan: . Echocardiogram unremarkable As per Cardiology . (5) Secondary hyperparathyroidism: Code(s): N25.81 - Secondary hyperparathyroidism of renal origin Category: Medical Plan: . on Calcitriol 0.25 mcg 3 x week PTH was 254. shall follow . (6) Hyperkalemia: Code(s): E87.5 - Hyperkalemia Category: Medical Plan: stay on Low K diet Add Lokelma 5 gm PO 2 x week Orders: Orders Basic Metabolic Panel 6 Weeks N18.32 - Chronic kidney disease, stage 3b Parathyroid Hormone Intact Today N18.32 - Chronic kidney disease, stage 3b Phosphorus Today N18.32 - Chronic kidney disease, stage 3b Complete Blood Count no Diff Today N18.32 - Chronic kidney disease, stage 3b Medications: New sodium zirconium cyclosilicate (Lokelma) Can mix with a glass of water 5 grams PO .2 times a week 11 ea 2RF Hyperkalemia Coding Level of Care Code Est Pt Level 4 (71485) Diagnoses Stage 3b chronic kidney disease N18.32 Chronic kidney disease stage 3 subtype: stage 3b (GFR 30-44) Essential hypertension I10 Anemia D64.9 Anemia type: due to chronic kidney disease Chronic kidney disease stage 3 subtype: stage 3b (GFR 30-44) CAD (coronary artery disease) I25.10 Coronary Disease-Associated Artery/Lesion type: unspecified vessel or lesion type Secondary hyperparathyroidism N25.81 Hyperkalemia E87.5
[2024-12-19 14:35] VITALS: BP 144/70
--- OUTSIDE RECORDS SUMMARY | 2024-12-19 15:19 | XMS_ITS | Encounter Summary ---
Author Organization [facility] [place], Address [address] [place] [address] Phone Care Team Providers Care Editor & Co Founder Name Role Phone León Cannon MD Primary Care Provider [phone] Encounter Details Date Type Department Care Team (Late st Contact Info) Description 01/11/2023 Documentation Only [facility] [place], [facility] [address] [address] [phone] León Cannon MD 1962 [place], [place] Social History Tobacco Use Types Packs/Day [...] on filedocumented in this encounter Care Teams Editor & Co Founder Relationship Specialty Start Date End Date León Cannon MD 1962 [place], [place] PCP - General 09/03/19 documented as of this encounter
--- OUTSIDE RECORDS SUMMARY | 2024-12-19 15:19 | XMS_ITS | Encounter Summary ---
Author Organization [facility] [place], Address [address] [place] [address] Phone Care Team Providers Care Er Registrar Name Role Phone León Cannon MD Primary Care Provider [phone] Encounter Details Date Type Department Care Team (Late st Contact Info) Description 05/29/2020 Orders Only [facility] [place] - [address] [facility] [address] [place] [address] Judy Em MD Chronic kidney disease stage [...] (HCC) documented in this encounter Care Teams Er Registrar Relationship Specialty Start Date End Date León Cannon MD [facility] [place] [address] PCP - General 09/03/19 documented as of this encounter
--- OUTSIDE RECORDS SUMMARY | 2024-12-19 15:19 | XMS_ITS | Encounter Summary ---
Author Organization [facility] [place], Address [address] [place] [address] Phone Care Team Providers Care Shale Miner Blasting Name Role Phone León Cannon MD Primary Care Provider [phone] Encounter Details Date Type Department Care Team (Late st Contact Info) Description 11/20/2020 Orders Only [facility] [place] - [address] [place] [facility] [address] [place] [address] Judy Em MD Chronic kidney disease stage [...] (HCC) documented in this encounter Care Teams Shale Miner Blasting Relationship Specialty Start Date End Date León Cannon MD 1962 [facility] [place] [address] PCP - General 09/03/19 documented as of this encounter
--- OUTSIDE RECORDS SUMMARY | 2024-12-19 15:19 | XMS_ITS | Clinical Summary ---
Author Organization [facility], Address [address] [place] [phone] Phone Care Team Providers Care Bird Keeper Name Role Phone León Cannon MD Primary Care Provider [phone] Allergies Active Allergy Reactions Criticality Noted Date [...] Relation Comments Diabetes Father Heart disease Father [place] Hypertension Father Kidney disease Father Cancer Mother [...] complete [place] [id number] [place] [id number] [place] [id number] Care Teams Bird Keeper Relationship Specialty Start Date End Date eLón Cannon MD 1962 [facility] [place] [address] PCP - General 09/03/19
== END 2024-12-19 14:40 | disposition home or self-care (01) ==
PROVIDERS: PCP Internal Medicine; Visit Provider Internal Medicine Hypertension Specialist
DX: N18.32 Chronic kidney disease, stage 3b (principal); I10 Essential (primary) hypertension; D64.9 Anemia, unspecified; I25.10 Atherosclerotic heart disease of native coronary artery without angina pectoris; N25.81 Secondary hyperparathyroidism of renal origin; E87.5 Hyperkalemia
CPT/HCPCS: 99214

== ENCOUNTER → 2024-12-19 14:13 | Outpatient (BNVA) | payer MEDICARE, SELFPAY | PROVIDERS: PCP Internal Medicine; Visit Provider Internal Medicine Hypertension Specialist | DX: I12.9 Hypertensive chronic kidney disease with stage 1 through stage 4 chronic kidney disease, or unspecified chronic kidney disease (principal); N18.32 Chronic kidney disease, stage 3b; D64.9 Anemia, unspecified; I25.10 Atherosclerotic heart disease of native coronary artery without angina pectoris; N25.81 Secondary hyperparathyroidism of renal origin; E87.5 Hyperkalemia | CPT/HCPCS: 99212 ==

== ENCOUNTER 2025-01-10 11:33 | Outpatient (AMB) | payer MEDICARE, SELFPAY ==
[2025-01-10 11:36] VITALS: BP 144/76; PULSE 85; RESP 16; O2SAT 98; BMI 31.8
--- NOTE | 2025-01-10 11:36 | MHC.PC.OV ---
Vital Signs 01/10/25 11:36 Height 5 ft 4 in Weight 185 lb BMI 31.8 BP 144/76 H Blood Pressure Location Lt brachial Position Sitting Respiration 16 Pulse 85 Pulse Source Pulse Oximeter Pulse Oximetry (%) 98 Oxygen Delivery Method Room Air Intake Visit Reasons: Annual Pe Over due - see comments Allergies Penicillins [PCN] Allergy (Mild, Verified 01/10/25 11:36) RASH Medication List - Last Reconciled 01/10/25 by León Cannon MD [updraft machine As directed] albuterol sulfate 0.63 mg (3 mL) inhalation QID PRN albuterol sulfate 90 mcg/actuation 1 inh inhalation QID PRN 30 days allopurinol 100 mg PO DAILY aspirin 81 mg PO DAILY atenolol 50 mg PO DAILY atorvastatin 40 mg PO DAILY benzonatate 200 mg PO .qhs PRN 10 days calcitriol 0.25 mcg PO 3XW clopidogrel 75 mg PO DAILY ferrous sulfate 325 mg PO DAILY furosemide 20 mg PO DAILY glipizide 2 tabs in am, 1 tab in pm orally lisinopril 5 mg PO DAILY oxycodone 5 mg PO BID PRN 30 days sodium bicarbonate 650 mg PO BID sodium zirconium cyclosilicate (Lokelma) 5 grams PO .2 times a week Tobacco use date assessed: 01/10/25 Last assessed Fall Risk: 01/10/25 Dental Screening Dental Screen Date: 01/10/25 Did you have a dental visit in the last 12 months?: No Did you have a dental problem in the last 6 months where you did not have access to dental care?: No Was dental information given to patient?: No HPI Annual Pe Over due - see comments HPI Details Physical exam appointment - The patient is an 84-year-old female She has stable anemia due to chronic kidney disease, with hemoglobin last recorded at 10.9 g/dL in October. - Potassium levels are elevated at 5.4 mmol/L as of December 18. The patient is using potassium-binding medication bi-weekly., patient is established with Nephrology - The patient takes allopurinol for gout, atenolol, atorvastatin, glipizide for diabetes management, lisinopril (dose reduced due to hyperkalemia), and furosemide. Hemoglobin A1c 7.2 Health Maintenance - Discussion regarding the need for a mammogram as the last one was two years ago. - Encouraged physical activity and potentially exploring local senior citizen centers for exercise. - Management of diabetes, monitoring of A1c levels [place] [facility] - Patient lives with her son and [id number] who assist with household tasks. Medications - Allopurinol for Gout - Atenolol for Hypertension - Atorvastatin for Hyperlipidemia - Glipizide for Diabetes Mellitus Type 2 - Lisinopril for Hypertension, adjusted due to Hyperkalemia - Furosemide, may affect potassium levels Diagnostic results - Labs: - Hemoglobin stable at 10.9 g/dL (October) - Potassium levels elevated at 5.4 mmol/L (December 18) - Creatinine at 1.7; GFR is 28 - Tests and Diagnostics: - A1c 7.2 Patient Instructions - Continue the prescribed potassium-binding powder as instructed. - Consider exploring senior centers for exercise. - Follow-up mammogram is advised. - Monitor blood pressure and blood sugar levels regularly. - Maintain current medications unless otherwise directed by the physician. Review of Systems - General: No fever no chills - Neurological: No headaches no dizziness - Ear nose throat: No sore throat no hearing difficulty no ear pain - Cardiovascular: No syncope, no chest pain, no palpitations - Gastrointestinal: No nausea vomiting or diarrhea - Endocrine: No polyuria polydipsia no heat intolerance - Genitourinary: No dysuria - Skin: No new complaints Physical Exam General: Cooperative, healthy appearing, comfortable, no acute distress Orientation: Patient oriented x3 Head: Normal to inspection Ears: Within normal limit visually Nose: Normal external nose present Face and sinus: Normal facial exam Eyes: Appearance normal, extraocular movement intact pupils reactive Neck: Normal visual inspection and supple Respiratory: Normal respiratory effort and able to speak in complete sentences. Clear to auscultation, no stridor Cardiovascular: S1 and S2 GI: Normal to inspection. Soft to palpation and nontender Skin: Turgor normal, no acute findings Neuro: Patient oriented x3, motor sensory intact, balance intact tandem failed Extremities: Normal to inspection, reports pain in leg when waking up in the morning [facility] Medical History (Updated 01/10/25 @ 13:54 by León Cannon MD) Encounter for general adult medical examination with abnormal findings Pre-op evaluation Chest discomfort Viral syndrome Fall Shortness of breath Hip pain, right Right leg pain Tracheobronchitis Hypertension, essential Spondylosis of lumbosacral spine with radiculopathy Elevated uric acid in blood Anxiety, generalized 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, managed as type 2 Surgical History Status post transcatheter aortic valve replacement (TAVR) using bioprosthesis Hx of cardiac cath History of tonsillectomy History of left cataract surgery History of hysterectomy History of cholecystectomy Family History Father Diabetes Hypertension Mother Diabetes Breast cancer Colon cancer Social History Housing: House Alcohol intake: current Alcohol intake frequency: holidays/special occasions only Patient Tobacco Use Status: Never used Tobacco e-Cigarette/Vaping Use: Never Used service: No Current occupational status: retired Cognitive needs: No Hearing needs: No Vision needs: No Questionnaire PHQ-9 Over the last 2 weeks, how often have you been bothered by any of the following problems? 1. Little interest or pleasure in doing things: not at all 2. Feeling down, depressed, or hopeless: not at all 3. Trouble falling or staying asleep, or sleeping too much: not at all 4. Feeling tired or having little energy: not at all 5. Poor appetite or overeating: not at all 6. Feeling bad about yourself - or that you are a failure or have let yourself or your family down: not at all 7. Trouble concentrating on things, such as reading the newspaper or watching television: not at all 8. Moving or speaking so slowly that other people could have noticed. Or the opposite - being so fidgety or restless that you have been moving around a lot more than usual: not at all 9. Thoughts that you would be better off or of hurting yourself in some way: not at all Total score: 0 Depression Screening Interpretation: Negative Depression Screening Done: Yes 94929 - PHQ-9 Billing: Yes Source: Developed by Drs. Davis Clark, Molly Weems, Timothy Guillen and colleagues, with an educational margie from [employer]. Thrive Questionnaire Date Thrive assessed: 01/10/25 I am a: Patient What is your living situation today?: I choose not to answer this question Within the past 12 months, did the food you bought not last and you didn't have the money to get more?: Never true Within the past 12 months, did you worry whether your food would run out before you got money to buy more?: Never true Do you have trouble paying for medicines?: No Do you have trouble getting transportation to medical appointments?: No Do you have trouble paying your heating and electricity bill?: No Do you have trouble taking care of your child, family member or friend?: No Do you have trouble with day-to-day activities such as bathing, preparing meals, shopping, managing finances, etc.?: No Are you currently unemployed and looking for a job?: No Are you interested in more education?: No Please select the resources that you would like help with: None Currently or been in a relationship where the following occur: No concerns reported THRIVE Score: 0 AUDIT C Alcohol Use Questionnaire (AUDIT-C) 1. How often do you have a drink containing alcohol?: Never 3. How often do you have six or more drinks on one occasion?: Never Total Score: 0 Score Reviewed/Action Taken: Yes KAYLA-7 AMB Questionnaire KAYLA-7 Date KAYLA - 7 assessed: 01/10/25 Feeling nervous, anxious, or on edge: 0 = Not at all Not being able to stop or control worryin = Not at all Worrying too much about different things: 0 = Not at all Trouble relaxin = Not at all Being so restless that it is hard to sit still: 0 = Not at all Becoming easily annoyed or irritable: 0 = Not at all Feeling afraid as if something awful might happen: 0 = Not at all Total KAYLA-7 score (0-4 normal; 5-9 mild; 10-14 moderate; 15-21 severe): 0 Source: Developed by Drs. Davis Clark, Molly Weems, Timothy Guillen and colleagues, with an educational margie from [employer]. KAYLA-7 Assessment Billing KAYLA-7 Assessment Tool: KAYLA-7 Assessment 41988 Physical exam (Primary Care) Vital Signs: Last Vital Signs Pulse 85 01/10/25 11:36 Resp 16 01/10/25 11:36 BP 144/76 H 01/10/25 11:36 Pulse Ox 98 01/10/25 11:36 Oxygen Delivery Method Room Air 01/10/25 11:36 BMI result Body Mass Index 31.8 Tobacco/Smoking Status: Tobacco use Status Tobacco use date assessed 01/10/25 01/10/25 11:38 Patient Tobacco Use Status Never used Tobacco 01/10/25 11:36 e-Cigarette/Vaping Use Never Used 01/10/25 11:36 PHQ-9: PHQ-9 Score PHQ-9: Total score 0 01/10/25 12:02 Depression Screening Interpretation: Negative Thrive Assessment: Date of Thrive Assessment Date Thrive assessed 01/10/25 01/10/25 11:38 Currently or been in a relationship where the following occur: No concerns reported Coding Level of Care Code Est Pt Level 3 (37693) Est Pt Prev Care >65y(49622) Diagnoses Encounter for general adult medical examination with abnormal findings Z00.01 Type 2 diabetes mellitus with unspecified complications E11.8 Anemia of chronic illness D63.8 Stented coronary artery Z95.5 Coronary artery disease involving [place] coronary artery of [place] heart without angina pectoris I25.10 Coronary Disease-Associated Artery/Lesion type: [place] artery [place] vs. transplanted heart: [place] heart Associated angina: without angina Left lumbar radiculitis M54.16 Stage 3b chronic kidney disease N18.32 Chronic kidney disease stage 3 subtype: stage 3b (GFR 30-44) Elevated uric acid in blood E79.0 Additional Codes KAYLA-7 Assessment Billing - KAYLA-7 Assessment Tool: KAYLA-7 Assessment 88273 ([id number]) PHQ-9 - 61129 - PHQ-9 Billing: Yes ([id number]) Assessment & Plan Assessment & Plan (1) Encounter for general adult medical examination with abnormal findings: Code(s): Z00.01 - Encounter for general adult medical examination with abnormal findings Category: Medical (2) Type 2 diabetes mellitus with unspecified complications: Code(s): E11.8 - Type 2 diabetes mellitus with unspecified complications Category: Medical (3) Anemia of chronic illness: Code(s): D63.8 - Anemia in other chronic diseases classified elsewhere Category: Medical (4) Stented coronary artery: Code(s): Z95.5 - Presence of coronary angioplasty implant and graft Category: Surgical (5) CAD (coronary artery disease): Comment: 05/24/22 Prox LAD 70% stenosis and MIL placed, Mid LCx 70% stenosis, planned for staged PCI, AV mean gradiant 28mmhg; 03/30/2023, TAVR Dr. Dockery Code(s): I25.10 - Atherosclerotic heart disease of [place] coronary artery without angina pectoris Category: Medical Qualifiers: Coronary Disease-Associated Artery/Lesion type: [place] artery [place] vs. transplanted heart: [place] heart Associated angina: without angina Qualified Code(s): I25.10 - Atherosclerotic heart disease of [place] coronary artery without angina pectoris (6) Left lumbar radiculitis: Code(s): M54.16 - Radiculopathy, lumbar region Category: Medical (7) Kidney disease, chronic, stage III (GFR 30-59 ml/min): Code(s): N18.30 - Chronic kidney disease, stage 3 unspecified Category: Medical Qualifiers: Chronic kidney disease stage 3 subtype: stage 3b (GFR 30-44) Qualified Code(s): N18.32 - Chronic kidney disease, stage 3b (8) Elevated uric acid in blood: Code(s): E79.0 - Hyperuricemia without signs of inflammatory arthritis and tophaceous disease Category: Medical Plan Physical exam appointment - The patient is an 84-year-old female She has stable anemia due to chronic kidney disease, with hemoglobin last recorded at 10.9 g/dL in October. - Potassium levels are elevated at 5.4 mmol/L as of December 18. The patient is using potassium-binding medication bi-weekly., patient is established with Nephrology - The patient takes allopurinol for gout, atenolol, atorvastatin, glipizide for diabetes management, lisinopril (dose reduced due to hyperkalemia), and furosemide. Hemoglobin A1c 7.2 Health Maintenance - Discussion regarding the need for a mammogram as the last one was two years ago. - Encouraged physical activity and potentially exploring local senior citizen centers for exercise. - Management of diabetes, monitoring of A1c levels [place] [facility] - Patient lives with her son and [id number]-xtl who assist with household tasks. Medications - Allopurinol for Gout - Atenolol for Hypertension - Atorvastatin for Hyperlipidemia - Glipizide for Diabetes Mellitus Type 2 - Lisinopril for Hypertension, adjusted due to Hyperkalemia - Furosemide, may affect potassium levels Diagnostic results - Labs: - Hemoglobin stable at 10.9 g/dL (October) - Potassium levels elevated at 5.4 mmol/L (December 18) - Creatinine at 1.7; GFR is 28 - Tests and Diagnostics: - A1c 7.2 Patient Instructions - Continue the prescribed potassium-binding powder as instructed. - Consider exploring senior centers for exercise. - Follow-up mammogram is advised. - Monitor blood pressure and blood sugar levels regularly. - Maintain current medications unless otherwise directed by the physician. Orders: Orders MM tomosynthesis screening BI Today Z12.31 - Encounter for screening mammogram for malignant neoplasm of breast
--- OUTSIDE RECORDS SUMMARY | 2025-01-10 13:21 | XMS_ITS | Encounter Summary ---
Author Organization [facility], Address [address] [place] [address] Phone Care Team Providers Care Brake Drum Molder Name Role Phone León Cannon MD Primary Care Provider [phone] Encounter Details Date Type Department Care Team (Late st Contact Info) Description 01/11/2023 Documentation Only [facility], [facility] [address] [address] León Cannon MD 1962 [place], [place] Social History Tobacco Use Types Packs/Day [...] on filedocumented in this encounter Care Teams Brake Drum Molder Relationship Specialty Start Date End Date León Cannon MD 1962 [place], [place] PCP - General 09/03/19 documented as of this encounter
--- OUTSIDE RECORDS SUMMARY | 2025-01-10 13:21 | XMS_ITS | Encounter Summary ---
Author Organization [facility], Address [address] [place] [address] Phone Care Team Providers Care Education Associate Name Role Phone León Cannon MD Primary Care Provider [phone] Encounter Details Date Type Department Care Team (Late st Contact Info) Description 05/29/2020 Orders Only [facility] - [address] [facility] [address] [place] [address] Judy Em MD Chronic kidney disease stage [...] (HCC) documented in this encounter Care Teams Education Associate Relationship Specialty Start Date End Date León Cannon MD [facility] [place] [address] PCP - General 09/03/19 documented as of this encounter
--- OUTSIDE RECORDS SUMMARY | 2025-01-10 13:21 | XMS_ITS | Clinical Summary ---
Author Organization [facility], Address [address] [place] [address] Phone Care Team Providers Care Fleet Mechanic Name Role Phone León Cannon MD Primary Care Provider [phone] Allergies Active Allergy Reactions Criticality Noted Date [...] Relation Comments Diabetes Father Heart disease Father OR Hypertension Father Kidney disease Father Cancer Mother [...] complete [place] [id number] [facility] [place] [id number] [place] [id number] Care Teams Fleet Mechanic Relationship Specialty Start Date End Date León Cannon MD 1962 [facility] [place] [address] PCP - General 09/03/19
--- OUTSIDE RECORDS SUMMARY | 2025-01-10 13:21 | XMS_ITS | Encounter Summary ---
Author Organization [facility], Address [address] [place] [address] Phone Care Team Providers Care Gas Prover Name Role Phone León Cannon MD Primary Care Provider [phone] Encounter Details Date Type Department Care Team (Late st Contact Info) Description 11/20/2020 Orders Only [facility] - [address] [facility] 3 [place] [address] Judy Em MD Chronic kidney disease stage [...] (HCC) documented in this encounter Care Teams Gas Prover Relationship Specialty Start Date End Date León Cannon MD 1962 [facility] [place] [address] PCP - General 09/03/19 documented as of this encounter
== END 2025-01-10 12:10 | disposition home or self-care (01) ==
LOC: HO.HMCC 11:33
PROVIDERS: PCP Internal Medicine; Visit Provider Internal Medicine
DX: Z13.9 Encounter for screening, unspecified (principal)

== ENCOUNTER → 2025-01-10 11:33 | Outpatient (BNVA) | payer MEDICARE, SELFPAY | PROVIDERS: PCP Internal Medicine; Visit Provider Internal Medicine | DX: Z00.01 Encounter for general adult medical examination with abnormal findings (principal); E11.8 Type 2 diabetes mellitus with unspecified complications; D63.8 Anemia in other chronic diseases classified elsewhere; I25.10 Atherosclerotic heart disease of native coronary artery without angina pectoris; M54.16 Radiculopathy, lumbar region; N18.32 Chronic kidney disease, stage 3b; E79.0 Hyperuricemia without signs of inflammatory arthritis and tophaceous disease; Z95.5 Presence of coronary angioplasty implant and graft | CPT/HCPCS: 83036; 96127; 99397 ==

== ENCOUNTER 2025-03-03 15:10 | Outpatient (REF) | payer MEDICARE, SELFPAY ==
[2025-03-03 16:20] LABS: Hematocrit 31.1 % (37.0-47.0); Mean Corpuscular HGB Conc 32.2 g/dl (31.0-35.0); Mean Corpuscular Hemoglobin 33.1 pg (27.0-33.0); Mean Platelet Volume 9.6 fL (9.4-12.3); Platelet Count 185 X10*3/uL (160-400); Red Blood Count 3.02 X10*6/uL (4.20-5.50); Red Cell Distribution Width 14.6 % (11.0-16.0); White Blood Count 5.4 X10*3/uL (4.8-10.8)
[2025-03-03 16:41] LABS: Anion Gap 12 (12-20); Blood Urea Nitrogen 42 mg/dL (9-16); Calcium 9.2 mg/dL (8.4-10.2); Carbon Dioxide 22 mmol/L (22-29); Chloride 112 mmol/L (96-108); Estimated Glomerular Filt Rate 30; Glucose Random 208 mg/dL (60-115); Phosphorus 3.1 mg/dL (2.7-4.5); Potassium 5.3 mmol/L (3.3-5.1); Sodium 141 mmol/L (135-145)
--- OUTSIDE RECORDS SUMMARY | 2025-03-03 16:46 | XMS_ITS | Clinical Summary ---
Author Organization [facility], Address [address] [place] [address] Phone Care Team Providers Care Head Bone Grinder Name Role Phone León Cannon MD Primary Care Provider [phone] Allergies Active Allergy Reactions Criticality Noted Date [...] Anemia 05/14/2012 Benign essential hypertension 02/09/2006 Immunizations Immunization Administration Dates Next Due H1N1 Inj Preservative Free 11/27/2009 Influenza Split High Dose Pr eservative Free IM 08/29/2019,08/22/2018,08/08/2018,07/21,10/03/2016,10/02/2015 Influenza TIV (IM) 08/22/2012, 1,10/01/2010,07/31,08/29/2007,09/04/2006,10/10/2005 Pneumococcal Polysaccharide 01/12/2015, 5 Family History Medical History Relation Comments Diabetes Father Heart disease Father [place] Hypertension Father Kidney disease Father Cancer Mother [...] Due Date Last Done Comments Pneumococcal Vaccine: 50+ Years (3 of 3 - PCV) 01/13/2016 01/12/2015, 10/10/2005 Diabetes: Hemoglobin A1C 11/22/2019 Diabetes: Ophthalmology Exam 11/22/2019 Diabetes: Pedal Pulse Checked 11/22/2019 Diabetes: Sensory Foot Exam 11/22/2019 Diabetes: Visual Foot Exam 11/22/2019 Influenza Vaccine (Season Ended) 2025 08/29/2019, 08/22/2018, 08/08/2018, Additional history exists Pneumococcal Vaccine: Peds (0 to 5 Years) and At-Risk Patients (6 to 49 Years) Discontinued 01/12/2015, 10/10/2005 Hepatitis B Vaccine Aged Out No longe r eligible based on patient's age to complete [place] [address] [facility] [place] [id number] [place] [id number] Care Teams Head Bone Grinder Relationship Specialty Start Date End Date León Cannon MD 1962 [facility] [place] [address] PCP - General 09/03/19
--- OUTSIDE RECORDS SUMMARY | 2025-03-03 16:46 | XMS_ITS | Encounter Summary ---
Author Organization [facility], Address [address] [place] [address] Phone Care Team Providers Care Shelter Supervisor Name Role Phone León Cannon MD Primary Care Provider [phone] Encounter Details Date Type Department Care Team (Late st Contact Info) Description 11/20/2020 Orders Only [facility] - [address] [facility] [address] [place] [address] Judy Em MD Chronic kidney disease stage [...] (HCC) documented in this encounter Care Teams Shelter Supervisor Relationship Specialty Start Date End Date León Cannon MD 1962 [facility] [place] [address] PCP - General 09/03/19 documented as of this encounter
--- OUTSIDE RECORDS SUMMARY | 2025-03-03 16:46 | XMS_ITS | Encounter Summary ---
Author Organization [facility], Address [address] [place] [address] Phone Care Team Providers Care Stamper Blocker Name Role Phone León Cannon MD Primary Care Provider [phone] Encounter Details Date Type Department Care Team (Late st Contact Info) Description 05/29/2020 Orders Only [facility] - [address] [facility] 3 [place] [address] Judy Em MD Chronic kidney disease stage [...] (HCC) documented in this encounter Care Teams Stamper Blocker Relationship Specialty Start Date End Date León Cannon MD [facility] [place] [address] PCP - General 09/03/19 documented as of this encounter
--- OUTSIDE RECORDS SUMMARY | 2025-03-03 16:46 | XMS_ITS | Encounter Summary ---
Author Organization [facility], Address [address] [place] [address] Phone Care Team Providers Care Bank Vault Attendant Name Role Phone León Cannon MD Primary Care Provider [phone] Encounter Details Date Type Department Care Team (Late st Contact Info) Description 01/11/2023 Documentation Only [facility], [facility] [place] [address] [address] León Cannon MD 1962 [place], [place] Social History Tobacco Use Types Packs/Day [...] on filedocumented in this encounter Care Teams Bank Vault Attendant Relationship Specialty Start Date End Date León Cannon MD 1962 [place], [place] PCP - General 09/03/19 documented as of this encounter
[2025-03-03 16:55] LABS: Parathyroid Hormone Intact 187.5 pg/mL (8.7-77.1)
== END 2025-03-03 15:11 | disposition home or self-care (01) ==
LOC: HO.HMGCLDS 15:10
PROVIDERS: PCP Internal Medicine; Visit Provider Internal Medicine Hypertension Specialist
DX: N18.32 Chronic kidney disease, stage 3b (principal)
CPT/HCPCS: 36415; 80048; 83970; 84100; 85027

== ENCOUNTER 2025-03-04 15:13 | Outpatient (AMB) | payer MEDICARE, SELFPAY ==
--- NOTE | 2025-03-04 15:15 | HO.NEPHOV ---
Vital Signs 03/04/25 15:16 Height 5 ft 4 in Weight 185 lb BMI 31.8 BP 142/68 H Blood Pressure Location Rt brachial Position Sitting Pulse 80 Pulse Source Pulse Oximeter Pulse Oximetry (%) 97 Oxygen Delivery Method Room Air Intake Visit Reasons: Anemia/ LVM Automatic Brine Mixer Operator Required: No Accompanied by: Self / Same As Patient Allergies Penicillins [PCN] Allergy (Mild, Verified 03/04/25 15:19) RASH Medication List - Last Reconciled 03/04/25 by Claudio Blakely MD [updraft machine As directed] albuterol sulfate 0.63 mg (3 mL) inhalation QID PRN albuterol sulfate 90 mcg/actuation 1 inh inhalation QID PRN 30 days allopurinol 100 mg PO DAILY aspirin 81 mg PO DAILY atenolol 50 mg PO DAILY atorvastatin 40 mg PO DAILY benzonatate 200 mg PO .qhs PRN 10 days calcitriol 0.25 mcg PO 3XW clopidogrel 75 mg PO DAILY ferrous sulfate 325 mg PO DAILY furosemide 20 mg PO DAILY glipizide 2 tabs in am, 1 tab in pm orally lisinopril 5 mg PO DAILY oxycodone 5 mg PO BID PRN 30 days sodium bicarbonate 650 mg PO BID sodium zirconium cyclosilicate (Lokelma) 5 grams PO .2 times a week HPI Comments Details: Lorena Cloud is an 83-year-old female with a history of hypertension, diabetes, hyperlipidemia, first-degree AV block, CAD status post 2 cardiac catheterization with stent placements, severe aortic stenosis s/p TAVR March 2023 She has stage IIIB CKD. Her baseline serum creatinine has been around 1.4-1.7 mg/dL. She was being followed by Dr. Moshe Em. 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 From renal standpoint she has no specific complaints. She had missed readings high salt diet. She does not take any NSAIDs or Ortez 2 inhibitors. She continues have shortness of breath on exertion. No change in weight. She has leg edema. No urinary symptoms. 11/20/23 ; Tolerating Lasix 20 mg QD ;Lost 5 lbs ;No dyspnea 02/19/24 : c/o Cough x 3 week;CXR normal;Waiting for ECHO 04/08/2024. Overall feels better. No further cough. Accompanied by daughter. 07/11/24 ;Here for followup; She has no new issues; On Lisinopril 5 mg daily ;No dyspnea at rest ;No edema 11/11/24 ;Recently had resp tract infection ; Treated with antibiotics ;K was 5.9; Kayexalate was called in ;Yet to take it 12/19/24 ;Overall doing OK 03/04/25: No compliants today Ran out of [employer]mm[employer] 5 days ago [facility] Medical History (Updated 01/10/25 @ 13:54 by León Cannon MD) Encounter for general adult medical examination with abnormal findings Pre-op evaluation Chest discomfort Viral syndrome Fall Shortness of breath Hip pain, right Right leg pain Tracheobronchitis Hypertension, essential Spondylosis of lumbosacral spine with radiculopathy Elevated uric acid in blood Anxiety, generalized 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, managed as type 2 Surgical History Status post transcatheter aortic valve replacement (TAVR) using bioprosthesis Hx of cardiac cath History of tonsillectomy History of left cataract surgery History of hysterectomy History of cholecystectomy Family History Father Diabetes Hypertension Mother Diabetes Breast cancer Colon cancer Social History Housing: House Alcohol intake: current Alcohol intake frequency: holidays/special occasions only Patient Tobacco Use Status: Never used Tobacco e-Cigarette/Vaping Use: Never Used service: No Current occupational status: retired Cognitive needs: No Hearing needs: No Vision needs: No Physical Exam Vital Signs: Last Vital Signs Pulse 80 03/04/25 15:16 BP 142/68 H 03/04/25 15:16 Pulse Ox 97 03/04/25 15:16 Oxygen Delivery Method Room Air 03/04/25 15:16 BMI result Body Mass Index 31.8 Const General: comfortable Nutritional Appearance: well nourished Orientation/consciousness: patient oriented x3 HEENT Head: No normal to inspection Mouth: moist mucous membranes Neck Neck: Yes supple and Yes no JVD Resp Auscultation: clear to auscultation bilaterally and no rales Cardio Jugular venous distension: no JVD Palpation: no palpable S3 and no palpable S4 Heart sounds: no rubs GI Palpation (GI): Soft to palpation and nontender Percussion: No Fluid wave present General: Yes no CVA tenderness Back/Spine/Pelvis Back: no CVA tenderness Skin General skin exam: no rashes or lesions noted Neuro General: patient oriented x3 Extrem General: Yes no pedal edema and No clubbing Results Reviewed Nephrology Results: Hgb 10.0 g/dl (12.0-16.0) L 03/03/25 WBC 5.4 X10*3/uL (4.8-10.8) 03/03/25 Plt Count 185 X10*3/uL (160-400) 03/03/25 Sodium 141 mmol/L (135-145) 03/03/25 Potassium 5.3 mmol/L (3.3-5.1) H 03/03/25 Chloride 112 mmol/L (96-108) H 03/03/25 Carbon Dioxide 22 mmol/L (22-29) 03/03/25 BUN 42 mg/dL (9-16) H 03/03/25 Creatinine 1.62 mg/dL (0.5-1.4) H 03/03/25 Calcium 9.2 mg/dL (8.4-10.2) 03/03/25 Phosphorus 3.1 mg/dL (2.7-4.5) 03/03/25 PTH Intact 187.5 pg/mL (8.7-77.1) H 03/03/25 Assessment & Plan Assessment & Plan (1) Kidney disease, chronic, stage III (GFR 30-59 ml/min): Code(s): N18.30 - Chronic kidney disease, stage 3 unspecified Category: Medical Qualifiers: Chronic kidney disease stage 3 subtype: stage 3b (GFR 30-44) Qualified Code(s): N18.32 - Chronic kidney disease, stage 3b Plan: . Sherry has stable CKD stage IIIB unit setting of longstanding hypertension diabetes mellitus obesity and coronary disease. In the past she did not have any significant proteinuria. She probably does not have overt diabetic nephropathy. Creatinine is close to baseline. Goal is to slow the progression of renal disease. Maintain blood pressure less than 130/80 Maintain hemoglobin A1c less than 7% Continue with Marcio inhibitors for renal protection. She might benefit from SGLT 2 inhibitors. . (2) Essential hypertension: Code(s): I10 - Essential (primary) hypertension Category: Medical Plan: . Blood pressure is acceptable. Encouraged to monitor blood pressure at home and if systolic blood pressure is elevated we can readdress this Discussed weight loss. She should stay on low-sodium diet (3) Anemia: Code(s): D64.9 - Anemia, unspecified Category: Medical Qualifiers: Anemia type: due to chronic kidney disease Chronic kidney disease stage 3 subtype: stage 3b (GFR 30-44) Plan: . 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 No absolute indication for erythropoietin injections. Shall follow hemoglobin closely . (4) CAD (coronary artery disease): Comment: 05/24/22 Prox LAD 70% stenosis and MIL placed, Mid LCx 70% stenosis, planned for staged PCI, AV mean gradiant 28mmhg; 03/30/2023, TAVR Dr. Dockery Code(s): I25.10 - Atherosclerotic heart disease of southern [place] coronary artery without angina pectoris Category: Medical Qualifiers: Associated angina: without angina Coronary Disease-Associated Artery/Lesion type: southern [place] artery Inupiat vs. transplanted heart: southern ute heart Qualified Code(s): I25.10 - Atherosclerotic heart disease of southern [place] coronary artery without angina pectoris Plan: . Echocardiogram unremarkable As per Cardiology . (5) Secondary hyperparathyroidism: Code(s): N25.81 - Secondary hyperparathyroidism of renal origin Category: Medical Plan: . on Calcitriol 0.25 mcg 3 x week PTH was 187;shall follow . (6) Hyperkalemia: Code(s): E87.5 - Hyperkalemia Category: Medical Plan: stay on Low K diet Resume Lokelma 5 gm PO 2 x week Orders: Orders Basic Metabolic Panel 3 Months D64.9 - Anemia, unspecified, N18.32 - Chronic kidney disease, stage 3b Coding Level of Care Code Est Pt Level 4 (79944) Diagnoses Stage 3b chronic kidney disease N18.32 Chronic kidney disease stage 3 subtype: stage 3b (GFR 30-44) Essential hypertension I10 Anemia D64.9 Anemia type: due to chronic kidney disease Chronic kidney disease stage 3 subtype: stage 3b (GFR 30-44) Coronary artery disease involving southern [place] coronary artery of southern ute heart without angina pectoris I25.10 Associated angina: without angina Coronary Disease-Associated Artery/Lesion type: southern [place] artery Inupiat vs. transplanted heart: southern ute heart Secondary hyperparathyroidism N25.81 Hyperkalemia E87.5
[2025-03-04 15:16] VITALS: BP 142/68; PULSE 80; O2SAT 97; BMI 31.8
--- OUTSIDE RECORDS SUMMARY | 2025-03-04 16:24 | XMS_ITS | Clinical Summary ---
Author Organization [facility], Address [address] [place] [phone] Phone Care Team Providers Care Airport Operations Crew Member Name Role Phone León Cannon MD Primary Care Provider [phone] Allergies Active Allergy Reactions Criticality Noted Date [...] Relation Comments Diabetes Father Heart disease Father [place] Hypertension Father Kidney disease Father Cancer Mother [...] [place] [id number] [facility] [place] [id number] [place] [id number] Care Teams Airport Operations Crew Member Relationship Specialty Start Date End Date León Cannon MD 1962 [facility] [place] [address] PCP - General 09/03/19
--- OUTSIDE RECORDS SUMMARY | 2025-03-04 16:24 | XMS_ITS | Encounter Summary ---
Author Organization [facility] [place], Address [address] [place] [address] Phone Care Team Providers Care Penology Teacher Name Role Phone León Cannon MD Primary Care Provider Encounter Details Date Type Department Care Team (Late st Contact Info) Description 11/20/2020 Orders Only [facility] [place] - [address] [facility] 3 [place] [address] Judy Em MD Chronic kidney disease stage [...] (HCC) documented in this encounter Care Teams Penology Teacher Relationship Specialty Start Date End Date León Cannon MD 1962 [facility] [place] [address] PCP - General 09/03/19 documented as of this encounter
--- OUTSIDE RECORDS SUMMARY | 2025-03-04 16:24 | XMS_ITS | Encounter Summary ---
Author Organization [facility] [place], Address [address] [place] [address] Phone Care Team Providers Care Running Specialist Name Role Phone León Cannon MD Primary Care Provider [phone] Encounter Details Date Type Department Care Team (Late st Contact Info) Description 01/11/2023 Documentation Only [facility] [place], [facility] [place] [address] [address] León Cannon MD 1962 [place], [place] Social History Tobacco Use Types Packs/Day [...] on filedocumented in this encounter Care Teams Running Specialist Relationship Specialty Start Date End Date León Cannon MD 1962 [place], [place] PCP - General 09/03/19 documented as of this encounter
--- OUTSIDE RECORDS SUMMARY | 2025-03-04 16:24 | XMS_ITS | Encounter Summary ---
Author Organization [facility] [place], Address [address] [place] [address] Phone Care Team Providers Care Boiler Coverer Helper Name Role Phone León Cannon MD Primary Care Provider [phone] Encounter Details Date Type Department Care Team (Late st Contact Info) Description 05/29/2020 Orders Only [facility] [place] - [address] [facility] 3 [place] [address] Judy Em MD Chronic kidney disease stage [...] (HCC) documented in this encounter Care Teams Boiler Coverer Helper Relationship Specialty Start Date End Date León Cannon MD [facility] [place] [address] PCP - General 09/03/19 documented as of this encounter
== END 2025-03-04 15:35 | disposition home or self-care (01) ==
LOC: HO.HKA 15:14
PROVIDERS: PCP Internal Medicine; Visit Provider Internal Medicine Hypertension Specialist
DX: N18.32 Chronic kidney disease, stage 3b (principal); I10 Essential (primary) hypertension; D64.9 Anemia, unspecified; I25.10 Atherosclerotic heart disease of native coronary artery without angina pectoris; N25.81 Secondary hyperparathyroidism of renal origin; E87.5 Hyperkalemia
CPT/HCPCS: 99214

== ENCOUNTER → 2025-03-04 15:13 | Outpatient (BNVA) | payer MEDICARE, SELFPAY | PROVIDERS: PCP Internal Medicine; Visit Provider Internal Medicine Hypertension Specialist | DX: I12.9 Hypertensive chronic kidney disease with stage 1 through stage 4 chronic kidney disease, or unspecified chronic kidney disease (principal); N18.32 Chronic kidney disease, stage 3b; N25.81 Secondary hyperparathyroidism of renal origin; D64.9 Anemia, unspecified; I25.10 Atherosclerotic heart disease of native coronary artery without angina pectoris; E87.5 Hyperkalemia | CPT/HCPCS: 99212 ==

== ENCOUNTER 2025-03-12 12:48 | Outpatient (AMB) | payer MEDICARE, SELFPAY ==
--- NOTE | 2025-03-12 12:51 | MHC.OFFWIV ---
Intake Vital Signs 03/12/25 12:52 Height 5 ft 4 in Weight 184 lb BMI 31.6 BP 140/76 H Blood Pressure Location Lt brachial Position Sitting Pulse 87 Pulse Source Pulse Oximeter Temp 97.7 F Temp Source Oral Pulse Oximetry (%) 96 Oxygen Delivery Method Room Air Intake Visit Reasons: EP-? uti * Patient Tobacco Use Status: Never used Tobacco Allergies Penicillins [PCN] Allergy (Mild, Verified 03/12/25 12:52) RASH Do you need a note to return to daycare/school/sports/work: No HPI HPI Comments History of Present Illness Details History of Present Illness - The patient is an 84-year-old female presenting with suspected Urinary Tract Infection. - She has reported left flank discomfort but denies fever, hematuria, or abdominal pain at present. - Increased urinary frequency is noted, consistent with previous experiences during UTI episodes. - New medications have been initiated for hyperkalemia, but no link has been clearly established between the medication and the present symptoms. - Previous penicillin allergy was noted, but the likelihood of cephalosporin cross-reactivity is considered low. Physical Exam General: Cooperative, healthy appearing, comfortable, no acute distress and well developed Orientation: Patient oriented x3 Limitations: No limitations Head: Normal to inspection Ears: Hearing grossly normal bilaterally Nose: Normal External nose present Face and sinus: Normal facial exam Eyes: Appearance normal, both eyes and all related structures Neck: Normal visual inspection and Yes full ROM Respiratory: Normal respiratory effort and able to speak in complete sentences. 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, managed as type 2 Surgical History Status post transcatheter aortic valve replacement (TAVR) using bioprosthesis Hx of cardiac cath History of tonsillectomy History of left cataract surgery History of hysterectomy History of cholecystectomy Family History Father Diabetes Hypertension Mother Diabetes Breast cancer Colon cancer Social History Housing: House Alcohol intake: current Alcohol intake frequency: holidays/special occasions only Patient Tobacco Use Status: Never used Tobacco e-Cigarette/Vaping Use: Never Used service: No Current occupational status: retired Cognitive needs: No Hearing needs: No Vision needs: No Review of Systems Const All systems reviewed & are unremarkable except as noted in HPI and below Physical Exam Vital Signs: Last Vital Signs Temp 97.7 F 03/12/25 12:52 Pulse 87 03/12/25 12:52 BP 140/76 H 03/12/25 12:52 Pulse Ox 96 03/12/25 12:52 Oxygen Delivery Method Room Air 03/12/25 12:52 BMI result Body Mass Index 31.6 Assessment & Plan Assessment & Plan (1) UTI (urinary tract infection): Code(s): N39.0 - Urinary tract infection, site not specified Qualifiers: Urinary tract infection type: acute cystitis Hematuria presence: without hematuria Qualified Code(s): N30.00 - Acute cystitis without hematuria Plan: UA + leuks, neg blood. A urine culture will be performed to confirm the bacterial etiology of the suspected urinary tract infection, with cefuroxime prescribed empirically at a dose of twice a day for five days. The antibiotic was selected for its low incidence of gastrointestinal side effects and minimal cross-allergy potential with penicillin. The patient was informed of possible medication changes should culture results indicate another pathogen. She will begin the antibiotic treatment promptly. Electronic transmission of the prescription to her chosen pharmacy has been confirmed, and any updates will be conveyed post-culture results. Patient was informed and verbally consented to the use of an ambient scribe for clinic note documentation during this visit. Orders: Orders Urine Culture Today N39.0 - Urinary tract infection, site not specified Medications: New cefuroxime axetil 500 mg PO Q12H 10 tabs 0RF Coding Level of Care Code Est Pt Level 3 (81239) Diagnoses Acute cystitis without hematuria N30.00 Urinary tract infection type: acute cystitis Hematuria presence: without hematuria
[2025-03-12 12:52] VITALS: BP 140/76; PULSE 87; TEMP 36.5; O2SAT 96; BMI 31.6
--- OUTSIDE RECORDS SUMMARY | 2025-03-12 13:07 | XMS_ITS | Encounter Summary ---
Author Organization [facility] [place], Address [address] [place] [address] Phone Care Team Providers Care Printing Press Machinist Name Role Phone León Cannon MD Primary Care Provider Encounter Details Date Type Department Care Team (Late st Contact Info) Description 01/11/2023 Documentation Only [facility] [place], [facility] [address] [place] [address] [address] León Cannon MD 1962 [place], [place] Social History Tobacco Use Types Packs/Day [...] on filedocumented in this encounter Care Teams Printing Press Machinist Relationship Specialty Start Date End Date León Cannon MD 1962 [place], [place] PCP - General 09/03/19 documented as of this encounter
--- OUTSIDE RECORDS SUMMARY | 2025-03-12 13:07 | XMS_ITS | Clinical Summary ---
Author Organization [facility], Address [address] [place] [phone] Phone Care Team Providers Care Frame And Scrap Crusher Name Role Phone León Cannon MD Primary Care Provider [phone] Allergies Active Allergy Reactions Criticality Noted Date [...] Relation Comments Diabetes Father Heart disease Father [place] Hypertension Father Kidney disease Father Cancer Mother [...] complete [place] [id number] [facility] [place] [place] [id number] [place] [address] Care Teams Frame And Scrap Crusher Relationship Specialty Start Date End Date León Cannon MD 1962 [facility] [place] [address] PCP - General 09/03/19
--- OUTSIDE RECORDS SUMMARY | 2025-03-12 13:07 | XMS_ITS | Encounter Summary ---
Author Organization [facility] [place], Address [address] [place] [address] Phone Care Team Providers Care Skein Drier Name Role Phone León Cannon MD Primary Care Provider [phone] Encounter Details Date Type Department Care Team (Late st Contact Info) Description 11/20/2020 Orders Only [facility] [place] - [place] [address] [place] [facility] 3 [place] [address] Judy Em MD Chronic kidney disease stage [...] (HCC) documented in this encounter Care Teams Skein Drier Relationship Specialty Start Date End Date León Cannon MD 1962 [facility] [place] [address] PCP - General 09/03/19 documented as of this encounter
--- OUTSIDE RECORDS SUMMARY | 2025-03-12 13:07 | XMS_ITS | Encounter Summary ---
Author Organization [facility] [place], Address [address] [place] [address] Phone Care Team Providers Care Rn Surgery Icu Name Role Phone León Cannon MD Primary Care Provider [phone] Encounter Details Date Type Department Care Team (Late st Contact Info) Description 05/29/2020 Orders Only [facility] [place] - [place] [address] [place] [facility] [address] [place] [address] Judy Em MD Chronic kidney disease stage [...] (HCC) documented in this encounter Care Teams Rn Surgery Icu Relationship Specialty Start Date End Date León Cannon MD [facility] [place] [address] PCP - General 09/03/19 documented as of this encounter
== END 2025-03-12 13:35 | disposition home or self-care (01) ==
PROVIDERS: PCP Internal Medicine; Visit Provider Physician Assistant
DX: N30.00 Acute cystitis without hematuria (principal)

== ENCOUNTER 2025-03-12 12:48 | Outpatient (REF) | payer MEDICARE, SELFPAY ==
--- OUTSIDE RECORDS SUMMARY | 2025-03-12 13:29 | XMS_ITS | Encounter Summary ---
Author Organization [facility] [place], Address [address] [place] [address] Phone Care Team Providers Care Mule Driver Name Role Phone León Cannon MD Primary Care Provider [phone] Encounter Details Date Type Department Care Team (Late st Contact Info) Description 05/29/2020 Orders Only [facility] [place] - [address] [place] [facility] 3 [place] [address] Judy Em MD Chronic kidney disease stage [...] (HCC) documented in this encounter Care Teams Mule Driver Relationship Specialty Start Date End Date León Cannon MD [facility] [place] [address] PCP - General 09/03/19 documented as of this encounter
--- OUTSIDE RECORDS SUMMARY | 2025-03-12 13:29 | XMS_ITS | Clinical Summary ---
Author Organization [facility], Address [address] [place] [phone] Phone Care Team Providers Care Cheese Cutter Name Role Phone León Cannon MD Primary Care Provider [phone] Allergies Active Allergy Reactions Criticality Noted Date [...] Relation Comments Diabetes Father Heart disease Father [place] Hypertension Father Kidney disease Father Cancer Mother [...] complete [place] [id number] [facility] [place] [id number] [place] [id number] Care Teams Cheese Cutter Relationship Specialty Start Date End Date León Cannon MD 1962 [facility] [place] [address] PCP - General 09/03/19
--- OUTSIDE RECORDS SUMMARY | 2025-03-12 13:29 | XMS_ITS | Encounter Summary ---
Author Organization [facility] [place], Address [address] [place] [address] Phone Care Team Providers Care Electrical Apprentice Name Role Phone León Cannon MD Primary Care Provider Encounter Details Date Type Department Care Team (Late st Contact Info) Description 11/20/2020 Orders Only [facility] [place] - [address] [address] [place] [facility] 3 [place] [address] Judy Em MD Chronic kidney disease stage [...] (HCC) documented in this encounter Care Teams Electrical Apprentice Relationship Specialty Start Date End Date León Cannon MD 1962 [facility] [place] [address] PCP - General 09/03/19 documented as of this encounter
--- OUTSIDE RECORDS SUMMARY | 2025-03-12 13:29 | XMS_ITS | Encounter Summary ---
Author Organization [facility] [place], Address [address] [place] [address] Phone Care Team Providers Care It Help Desk Manager Name Role Phone León Cannon MD Primary Care Provider [phone] Encounter Details Date Type Department Care Team (Late st Contact Info) Description 01/11/2023 Documentation Only [facility] [place], [facility] [address] [address] [address] León Cannon MD 1962 [place], [place] Social History Tobacco Use Types Packs/Day [...] on filedocumented in this encounter Care Teams It Help Desk Manager Relationship Specialty Start Date End Date León Cannon MD 1962 [place], [place] PCP - General 09/03/19 documented as of this encounter
== END 2025-03-12 12:49 | disposition home or self-care (01) ==
LOC: HO.LAB 12:48
PROVIDERS: PCP Internal Medicine
DX: N30.00 Acute cystitis without hematuria (principal)
CPT/HCPCS: 87086; 99212

== ENCOUNTER 2025-04-15 09:54 | Outpatient (AMB) | payer MEDICARE, SELFPAY ==
--- NOTE | 2025-04-15 09:57 | A.OFFVIS_ITS ---
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 Required: No Accompanied by: Daughter Allergies Penicillins [PCN] Allergy (Mild, Verified 03/12/25 12:52) RASH Medication List - Last Reconciled 04/15/25 by Casey Richardson MD [updraft machine As directed] albuterol sulfate 0.63 mg (3 mL) inhalation QID PRN albuterol sulfate 90 mcg/actuation 1 inh inhalation QID PRN 30 days allopurinol 100 mg PO DAILY aspirin 81 mg PO DAILY atenolol 50 mg PO DAILY atorvastatin 40 mg PO DAILY calcitriol 0.25 mcg PO 3XW cefuroxime axetil 500 mg PO Q12H ferrous sulfate 325 mg PO DAILY furosemide 20 mg PO DAILY glipizide 2 tabs in am, 1 tab in pm orally lisinopril 5 mg PO DAILY oxycodone 5 mg PO BID PRN 30 days sodium bicarbonate 650 mg PO BID sodium zirconium cyclosilicate (Lokelma) 5 grams PO .2 times a week 30 days HPI Comments Details: Sherry returns for follow-up regarding aortic stenosis/status post TAVR. She also has coronary disease. Over the last year, no new concerns. Shortness of breath is just about the same as before. Most likely from deconditioning and frailty. Otherwise, no clear- cut symptoms like angina. 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, managed as type 2 Surgical History Status post transcatheter aortic valve replacement (TAVR) using bioprosthesis Hx of cardiac cath History of tonsillectomy History of left cataract surgery History of hysterectomy History of cholecystectomy Family History Father Diabetes Hypertension Mother Diabetes Breast cancer Colon cancer Social History Housing: House Alcohol intake: current Alcohol intake frequency: holidays/special occasions only Patient Tobacco Use Status: Never used Tobacco e-Cigarette/Vaping Use: Never Used service: No Current occupational status: retired Cognitive needs: No Hearing needs: No Vision needs: No Review of Systems Const Denies chills, Denies fatigue, Denies fever(s), Denies frequent falls, Denies weakness, Denies weight gain and Denies weight loss ENT Denies dizziness Card Denies chest pain, Denies leg edema, Denies lightheadedness, Denies palpitations, Reports dyspnea and Reports dyspnea on exertion Resp Denies cough, Reports dyspnea and Reports dyspnea on exertion GI Denies hematochezia Musc Denies abnormal gait, Denies muscle weakness, Denies numbness, Denies radiating pain into limb and Denies tingling Neuro Denies abnormal gait, Denies dizziness, Denies frequent falls, Denies numbness, Denies tingling and Denies weakness Endo Denies fatigue and Denies palpitations Physical Exam Vital Signs: Last Vital Signs Pulse 74 04/15/25 09:59 BP 130/66 04/15/25 09:59 BMI result Body Mass Index 31.9 Const General: comfortable and no acute distress Orientation/consciousness: patient oriented x3 HEENT Other: Unremarkable Head: Yes normal to inspection Neck Neck: Yes normal visual inspection Chest Chest palpation & inspection: normal inspection of the chest Resp Auscultation: clear to auscultation bilaterally Cardio Palpation: normal PMI Heart sounds: S1 normal heart sound present, S2 normal heart sound present, no gallops, Murmur heart sound present systolic II/ and at the right sternal border and no rubs GI Palpation (GI): Soft to palpation Back/Spine/Pelvis Other: unremarkable Skin General skin exam: no rashes or lesions noted Neuro General: patient oriented x3 Extrem General: Yes normal to inspection Psych Mental Status: mental status grossly normal Office Procedures EKG Details: EKG with underlying sinus rhythm at 74/Min; nonspecific ST-T changes; NC prolongation to 236 millisecond; corrected QT slightly prolonged that 490 milliseconds. [id number], Complete Assessment & Plan Assessment & Plan (1) Status post transcatheter aortic valve replacement (TAVR) using bioprosthesis: Code(s): Z95.3 - Presence of xenogenic heart valve Category: Surgical Plan: In the last echocardiogram, normally functioning TAVR valve. No significant regurgitation. Infective endocarditis prophylaxis before dental procedures. Continue aspirin. (2) Atherosclerotic cardiovascular disease: Code(s): I25.10 - Atherosclerotic heart disease of [place] coronary artery without angina pectoris Category: Medical Plan: Status post LAD as well as circumflex stenting. Continue statins. Direct LDL is 34 mg/dL. (3) Essential hypertension: Code(s): I10 - Essential (primary) hypertension Category: Medical Plan: Stable. Has a history of CKD/hyperkalemia. Concurrently seen by Nephrology. (4) Prolonged QT interval: Code(s): R94.31 - Abnormal electrocardiogram [ECG] [EKG] Category: Medical Plan: Avoid QT prolonging drugs. Plan Discussion Notes During the visit, I explained the management of her current conditions, emphasizing the stable cardiac status. I verified her current medication regimen. We reviewed the benefits of monitoring her heart with a future echocardiogram, and I highlighted the importance of continuing her current pace with physical activity to manage her exertional dyspnea. We have agreed to an annual review schedule, with instructions to report any new or worsening symptoms. Patient was informed and verbally consented to the use of an ambient scribe for clinic note documentation during this visit. Orders: Orders CA echo transthoracic complete 1 Year Z95.3 - Presence of xenogenic heart valve Patient Instructions: - Continue walking at a comfortable pace to manage breathing. - Monitor your symptoms and report any new or worsening ones. - Plan for an echocardiogram next year. - Continue with your current medications as prescribed. Coding Level of Care Code Est Pt Level 4 (21045) Complex EM visit Add On G2211 Diagnoses Status post transcatheter aortic valve replacement (TAVR) using bioprosthesis Z95.3 Atherosclerotic cardiovascular disease I25.10 Essential hypertension I10 Prolonged QT interval R94.31 CPT Codes EKG - CPT: 67502-[id number], Complete ([id number])
[2025-04-15 09:59] VITALS: BP 130/66; PULSE 74; BMI 31.9
--- OUTSIDE RECORDS SUMMARY | 2025-04-15 11:09 | XMS_ITS | Encounter Summary ---
Author Organization [facility], Address [address] [place] [address] Phone Care Team Providers Care Sugarcane Planter Name Role Phone León Cannon MD Primary Care Provider [phone] Encounter Details Date Type Department Care Team (Late st Contact Info) Description 11/20/2020 Orders Only [facility] - [address] [facility] [address] [place] [address] Judy Em MD Chronic kidney disease stage [...] (HCC) documented in this encounter Care Teams Sugarcane Planter Relationship Specialty Start Date End Date León Cannon MD 1962 [facility] [place] [id number] PCP - General 09/03/19 documented as of this encounter
== END 2025-04-15 10:20 | disposition home or self-care (01) ==
LOC: HO.HCS 09:55
PROVIDERS: PCP Internal Medicine; Visit Provider Internal Medicine
DX: Z95.3 Presence of xenogenic heart valve (principal); I25.10 Atherosclerotic heart disease of native coronary artery without angina pectoris; I10 Essential (primary) hypertension; R94.31 Abnormal electrocardiogram [ECG] [EKG]
CPT/HCPCS: 93010; 99214; G2211

== ENCOUNTER → 2025-04-15 09:54 | Outpatient (BNVA) | payer MEDICARE, SELFPAY | PROVIDERS: PCP Internal Medicine; Visit Provider Internal Medicine | DX: I25.10 Atherosclerotic heart disease of native coronary artery without angina pectoris (principal); I10 Essential (primary) hypertension; R94.31 Abnormal electrocardiogram [ECG] [EKG]; Z95.3 Presence of xenogenic heart valve; I45.81 Long QT syndrome; I44.0 Atrioventricular block, first degree | CPT/HCPCS: 93005; 99212 ==

== ENCOUNTER 2025-06-06 14:21 | Outpatient (REF) | payer MEDICARE, SELFPAY ==
--- OUTSIDE RECORDS SUMMARY | 2025-06-06 14:23 | XMS_ITS | Encounter Summary ---
Author Organization [facility], Address [address] [place] [address] Phone Care Team Providers Care Independent Living Advisor Name Role Phone León Cannon MD Primary Care Provider [phone] Encounter Details Date Type Department Care Team (Late st Contact Info) Description 11/20/2020 Orders Only [facility] - [address] [facility] [address] [place] [address] Judy Em MD Chronic kidney disease stage [...] (HCC) documented in this encounter Care Teams Independent Living Advisor Relationship Specialty Start Date End Date León Cannon MD 1962 [facility] [place] [id number] PCP - General 09/03/19 documented as of this encounter
[2025-06-06 16:29] LABS: Anion Gap 12 (12-20); Blood Urea Nitrogen 52 mg/dL (9-16); Calcium 9.2 mg/dL (8.4-10.2); Carbon Dioxide 20 mmol/L (22-29); Chloride 114 mmol/L (96-108); Estimated Glomerular Filt Rate 26; Potassium 5.4 mmol/L (3.3-5.1); Sodium 141 mmol/L (135-145)
== END 2025-06-06 14:22 | disposition home or self-care (01) ==
LOC: HO.HMGCLDS 14:21
PROVIDERS: PCP Internal Medicine; Visit Provider Internal Medicine Hypertension Specialist
DX: N18.32 Chronic kidney disease, stage 3b (principal); D64.9 Anemia, unspecified
CPT/HCPCS: 36415; 80048

== ENCOUNTER 2025-06-09 11:20 | Outpatient (AMB) | payer MEDICARE, SELFPAY ==
--- NOTE | 2025-06-09 11:21 | HO.NEPHOV ---
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 Required: No Accompanied by: Self / Same As Patient Allergies Penicillins (PCN) Allergy (Mild, Verified 06/09/25 11:23) RASH Medication List - Last Reconciled 06/09/25 by Claudio Blakely MD [updraft machine As directed] albuterol sulfate 0.63 mg (3 mL) inhalation QID PRN albuterol sulfate 90 mcg/actuation 1 inh inhalation QID PRN 30 days allopurinol 100 mg PO DAILY aspirin 81 mg PO DAILY atenolol 50 mg PO DAILY atorvastatin 40 mg PO DAILY calcitriol 0.25 mcg PO 3XW cefuroxime axetil 500 mg PO Q12H ferrous sulfate 325 mg PO DAILY furosemide 20 mg PO DAILY glipizide Take 2 tabs in the am and 1 tab in the pm orally; lisinopril 5 mg PO DAILY oxycodone 5 mg PO BID PRN 30 days sodium bicarbonate 650 mg PO BID sodium zirconium cyclosilicate (Lokelma) 5 grams PO .2 times a week 30 days HPI Comments Details: Lorena Cloud is an 83-year-old female with a history of hypertension, diabetes, hyperlipidemia, first-degree AV block, CAD status post 2 cardiac catheterization with stent placements, severe aortic stenosis s/p TAVR March 2023 She has stage IIIB CKD. Her baseline serum creatinine has been around 1.4-1.7 mg/dL. She was being followed by Dr. Moshe Em. 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 From renal standpoint she has no specific complaints. She had missed readings high salt diet. She does not take any NSAIDs or Ortez 2 inhibitors. She continues have shortness of breath on exertion. No change in weight. She has leg edema. No urinary symptoms. 11/20/23 ; Tolerating Lasix 20 mg QD ;Lost 5 lbs ;No dyspnea 02/19/24 : c/o Cough x 3 week;CXR normal;Waiting for ECHO 04/08/2024. Overall feels better. No further cough. Accompanied by daughter. 07/11/24 ;Here for followup; She has no new issues; On Lisinopril 5 mg daily ;No dyspnea at rest ;No edema 11/11/24 ;Recently had resp tract infection ; Treated with antibiotics ;K was 5.9; Kayexalate was called in ;Yet to take it 12/19/24 ;Overall doing OK 03/04/25: No compliants today ;Ran out of Lokelma 5 days ago 06/09/25: Doing well. 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, managed as type 2 Surgical History Status post transcatheter aortic valve replacement (TAVR) using bioprosthesis Hx of cardiac cath History of tonsillectomy History of left cataract surgery History of hysterectomy History of cholecystectomy Family History Father Diabetes Hypertension Mother Diabetes Breast cancer Colon cancer Social History Housing: House Alcohol intake: current Alcohol intake frequency: holidays/special occasions only Patient Tobacco Use Status: Never used Tobacco e-Cigarette/Vaping Use: Never Used service: No Current occupational status: retired Cognitive needs: No Hearing needs: No Vision needs: No Physical Exam Vital Signs: Last Vital Signs Pulse 85 06/09/25 11:22 BP 126/70 06/09/25 11:22 Pulse Ox 96 06/09/25 11:22 Oxygen Delivery Method Room Air 06/09/25 11:22 BMI result Body Mass Index 31.6 Const General: comfortable Nutritional Appearance: well nourished Orientation/consciousness: patient oriented x3 HEENT Head: No normal to inspection Mouth: moist mucous membranes Neck Neck: Yes supple and Yes no JVD Resp Auscultation: clear to auscultation bilaterally and no rales Cardio Jugular venous distension: no JVD Palpation: no palpable S3 and no palpable S4 Heart sounds: no rubs GI Palpation (GI): Soft to palpation and nontender Percussion: No Fluid wave present General: Yes no CVA tenderness Back/Spine/Pelvis Back: no CVA tenderness Skin General skin exam: no rashes or lesions noted Neuro General: patient oriented x3 Extrem General: Yes no pedal edema and No clubbing Results Reviewed Nephrology Results: Hgb, (12.0-16.0) 10.0 g/dl L 03/03/25 WBC, (4.8-10.8) 5.4 X10*3/uL 03/03/25 Plt Count, (160-400) 185 X10*3/uL 03/03/25 Sodium, (135-145) 141 mmol/L 06/06/25 Potassium, (3.3-5.1) 5.4 mmol/L H 06/06/25 Chloride, (96-108) 114 mmol/L H 06/06/25 Carbon Dioxide, (22-29) 20 mmol/L L 06/06/25 BUN, (9-16) 52 mg/dL H 06/06/25 Creatinine, (0.5-1.4) 1.85 mg/dL H 06/06/25 Calcium, (8.4-10.2) 9.2 mg/dL 06/06/25 Phosphorus, (2.7-4.5) 3.1 mg/dL 03/03/25 PTH Intact, (8.7-77.1) 187.5 pg/mL H 03/03/25 Renal US 04/05/24 Assessment & Plan Assessment & Plan (1) Kidney disease, chronic, stage III (GFR 30-59 ml/min): Code(s): N18.30 - Chronic kidney disease, stage 3 unspecified Category: Medical Qualifiers: Chronic kidney disease stage 3 subtype: stage 3b (GFR 30-44) Qualified Code(s): N18.32 - Chronic kidney disease, stage 3b Plan: . Sherry has stable CKD stage IIIB unit setting of longstanding hypertension diabetes mellitus obesity and coronary disease. In the past she did not have any significant proteinuria. She probably does not have overt diabetic nephropathy. Creatinine is close to baseline. Goal is to slow the progression of renal disease. Maintain blood pressure less than 130/80 Maintain hemoglobin A1c less than 7% Continue with Marcio inhibitors for renal protection. She might benefit from SGLT 2 inhibitors. Mild bump in creatinine Will DC Lisinopril 5 mg due to worsening renal function and hyperkalemia (06/09/25) . (2) Hyperkalemia: Code(s): E87.5 - Hyperkalemia Category: Medical Plan: stay on Low K diet Resume Lokelma 5 gm PO 2 x week ( has been taking once a day) (3) Essential hypertension: Code(s): I10 - Essential (primary) hypertension Category: Medical Plan: . Blood pressure is acceptable. Encouraged to monitor blood pressure at home and if systolic blood pressure is elevated we can readdress this Discussed weight loss. She should stay on low-sodium diet (4) Anemia: Code(s): D64.9 - Anemia, unspecified Category: Medical Qualifiers: Anemia type: due to chronic kidney disease Chronic kidney disease stage 3 subtype: stage 3b (GFR 30-44) Plan: . 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 No absolute indication for erythropoietin injections. Shall follow hemoglobin closely . (5) CAD (coronary artery disease): Comment: 05/24/22 Prox LAD 70% stenosis and MIL placed, Mid LCx 70% stenosis, planned for staged PCI, AV mean gradiant 28mmhg; 03/30/2023, TAVR Dr. Dockery Code(s): I25.10 - Atherosclerotic heart disease of [place] coronary artery without angina pectoris Category: Medical Qualifiers: Coronary Disease-Associated Artery/Lesion type: [place] artery [place] vs. transplanted heart: [place] heart Associated angina: without angina Qualified Code(s): I25.10 - Atherosclerotic heart disease of [place] coronary artery without angina pectoris Plan: . Echocardiogram unremarkable As per Cardiology . (6) Secondary hyperparathyroidism: Code(s): N25.81 - Secondary hyperparathyroidism of renal origin Category: Medical Plan: . on Calcitriol 0.25 mcg 3 x week PTH was 187;shall follow . Orders: Orders Basic Metabolic Panel 3 Months E87.5 - Hyperkalemia, N18.32 - Chronic kidney disease, stage 3b Medications: Discontinued lisinopril Discontinued Reason: Doctor's Order 5 mg PO DAILY 100 tabs 2RF Coding Level of Care Code Est Pt Level 4 (60726) Diagnoses Stage 3b chronic kidney disease N18.32 Chronic kidney disease stage 3 subtype: stage 3b (GFR 30-44) Hyperkalemia E87.5 Essential hypertension I10 Anemia D64.9 Anemia type: due to chronic kidney disease Chronic kidney disease stage 3 subtype: stage 3b (GFR 30-44) Coronary artery disease involving [place] coronary artery of [place] heart without angina pectoris I25.10 Coronary Disease-Associated Artery/Lesion type: [place] artery [place] vs. transplanted heart: [place] heart Associated angina: without angina Secondary hyperparathyroidism N25.81
[2025-06-09 11:22] VITALS: BP 126/70; PULSE 85; O2SAT 96; BMI 31.6
--- OUTSIDE RECORDS SUMMARY | 2025-06-09 12:00 | XMS_ITS | Encounter Summary ---
Author Organization [facility], Address [address] [place] [address] Phone Care Team Providers Care Railroad Shop Inspector Name Role Phone León Cannon MD Primary Care Provider [phone] Encounter Details Date Type Department Care Team (Late st Contact Info) Description 11/20/2020 Orders Only [facility] - [address] [facility] [address] [place] [address] Judy Em MD Chronic kidney disease stage [...] (HCC) documented in this encounter Care Teams Railroad Shop Inspector Relationship Specialty Start Date End Date León Cannon MD 1962 [facility] [place] [address] PCP - General 09/03/19 documented as of this encounter
== END 2025-06-09 11:36 | disposition home or self-care (01) ==
LOC: HO.HKA 11:21
PROVIDERS: PCP Internal Medicine; Visit Provider Internal Medicine Hypertension Specialist
DX: N18.32 Chronic kidney disease, stage 3b (principal); E87.5 Hyperkalemia; I10 Essential (primary) hypertension; D64.9 Anemia, unspecified; I25.10 Atherosclerotic heart disease of native coronary artery without angina pectoris; N25.81 Secondary hyperparathyroidism of renal origin
CPT/HCPCS: 99214

== ENCOUNTER → 2025-06-09 11:20 | Outpatient (BNVA) | payer MEDICARE, SELFPAY | PROVIDERS: PCP Internal Medicine; Visit Provider Internal Medicine Hypertension Specialist | DX: E11.22 Type 2 diabetes mellitus with diabetic chronic kidney disease (principal); I12.9 Hypertensive chronic kidney disease with stage 1 through stage 4 chronic kidney disease, or unspecified chronic kidney disease; N18.32 Chronic kidney disease, stage 3b; D63.1 Anemia in chronic kidney disease; E87.5 Hyperkalemia; I25.10 Atherosclerotic heart disease of native coronary artery without angina pectoris; N25.81 Secondary hyperparathyroidism of renal origin | CPT/HCPCS: 99212 ==

== ENCOUNTER 2025-06-13 11:00 | Outpatient (AMB) | payer MEDICARE, SELFPAY ==
[2025-06-13 11:07] VITALS: BP 122/76; PULSE 77; O2SAT 98; BMI 31.6
--- NOTE | 2025-06-13 11:07 | A.OFFPC_ITS ---
Vital Signs 06/13/25 11:07 Height 5 ft 4 in Weight 184 lb BMI 31.6 BP 122/76 Blood Pressure Location Lt brachial Position Sitting Pulse 77 Pulse Source Pulse Oximeter Pulse Oximetry (%) 98 Intake Visit Reasons: 5m follow up Allergies Penicillins (PCN) Allergy (Mild, Verified 06/13/25 11:07) RASH Medication List - Last Reconciled 06/13/25 by León Cannon MD [updraft machine As directed] albuterol sulfate 0.63 mg (3 mL) inhalation QID PRN albuterol sulfate 90 mcg/actuation 1 inh inhalation QID PRN 30 days allopurinol 100 mg PO DAILY aspirin 81 mg PO DAILY atenolol 50 mg PO DAILY atorvastatin 40 mg PO DAILY calcitriol 0.25 mcg PO 3XW ferrous sulfate 325 mg PO DAILY furosemide 20 mg PO DAILY glipizide Take 2 tabs in the am and 1 tab in the pm orally; oxycodone 5 mg PO BID PRN 30 days sodium bicarbonate 650 mg PO BID sodium zirconium cyclosilicate (Lokelma) 5 grams PO .2 times a week 30 days Tobacco use date assessed: 01/10/25 Fall risk assessment: No Falls in past year Last assessed Fall Risk: 06/13/25 Dental Screening Dental Screen Date: 01/10/25 HPI 5m follow up HPI Details Chief Complaint Longitudinal care appointment. History of Present Illness The patient is an 85-year-old female presenting with follow-up for kidney function concerns and management of blood pressure and diabetes. Hyperkalemia: - management by food and beverage coordinator - Noted increase in potassium levels che pite dietary modifications. - Discontinued lisinopril due to elevate d potassium. Hypertension: Off blood pressure medications blood pressure controlled Diabetes Mellitus: - Type 2 Diabetes, managed with Glipizid e. - Recent HbA1c recorded at 7.1, improved from previous levels. - Patient follows a regimen of two table ts in the morning and one at night. Chronic Kidney Disease: - Noted kidney function fluctuating with GFR reduced from 30 to 26. - Regular monitoring ongoing. Chronic back pain flares up every now and then For that patient take oxycodone at night 30 tablets usually last her 4-5 months Weight Management: - Fluctuating weight noted, currently at 184 lbs. - Difficulty with weight stability menti marileed. Medical History: - Hypertension - Type 2 Diabetes Mellitus - Chronic Kidney Disease - obesity - Back Pain Possibly Due to Disc Issues Surgical History: - Valvular Surgery Social History: - Lives an active life, recently celebra bertha 85th birthday. - Engaged in regular household activitie s and childcare for a 4-year-old. - Difficulty with ascending stairs due t o leg weakness. - Struggles with weight management and d ietary restrictions. Family History: - Great grandson diagnosed with kidney c edouarder and also has autism. Diagnostic Results: - Labs: - GFR recorded as 30 previously, now fluctuating around 26. - Potassium levels noted to be increasin g. - HbA1c at 7.1. Problem List - Hyperkalemia - Hypertension - Type 2 Diabetes Mellitus - Chronic Kidney Disease - obesity - osteoarthritis knees - chronic back pain Patient Instructions - Continue monitoring blood pressure and maintain dietary restrictions to manage potassium levels. - Avoid activities that may exacerbate h ernia symptoms, such as going down to the cellar. - Follow current medication regimen as p rescribed for diabetes management. - Enjoy an active lifestyle and engage s afely in daily activities. - Seek medical attention for any signifi cant changes in health status. Review of Systems - General: No fever no chills - Neurological: No headaches no dizziness - Ear nose throat: No sore throat no ear pain - Cardiovascular: No syncope, no chest pain, no palpitations - Gastrointestinal: No nausea vomiting or diarrhea Physical Exam General: No acute distress HEENT: No acute findings Neck: Supple Respiratory system: Able to talk in full sentences, no audible wheeze Cardiovascular: S1-S2 regular in rate and rhythm Gastrointestinal: No pain Extremities: No edema ROLLER PRESSER OPERATOR: Alert awake oriented x3 motor intact Skin: Normal turgor [facility] Medical History Encounter for general adult medical examination with abnormal findings Pre-op evaluation Chest discomfort Viral syndrome Fall Shortness of breath Hip pain, right Right leg pain Tracheobronchitis Hypertension, essential Spondylosis of lumbosacral spine with radiculopathy Elevated uric acid in blood Anxiety, generalized 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, managed as type 2 Surgical History Status post transcatheter aortic valve replacement (TAVR) using bioprosthesis Hx of cardiac cath History of tonsillectomy History of left cataract surgery History of hysterectomy History of cholecystectomy Family History Father Diabetes Hypertension Mother Diabetes Breast cancer Colon cancer Social History Housing: House Alcohol intake: current Alcohol intake frequency: holidays/special occasions only Patient Tobacco Use Status: Never used Tobacco e-Cigarette/Vaping Use: Never Used service: No Current occupational status: retired Cognitive needs: No Hearing needs: No Vision needs: No Questionnaire Thrive Questionnaire Date Thrive assessed: 01/10/25 I am a: Patient What is your living situation today?: I choose not to answer this question Within the past 12 months, did the food you bought not last and you didn't have the money to get more?: Never true Within the past 12 months, did you worry whether your food would run out before you got money to buy more?: Never true Do you have trouble paying for medicines?: No Do you have trouble getting transportation to medical appointments?: No Do you have trouble paying your heating and electricity bill?: No Do you have trouble taking care of your child, family member or friend?: No Do you have trouble with day-to-day activities such as bathing, preparing meals, shopping, managing finances, etc.?: No Are you currently unemployed and looking for a job?: No Are you interested in more education?: No Please select the resources that you would like help with: None Currently or been in a relationship where the following occur: No concerns reported THRIVE Score: 0 KAYLA-7 AMB Questionnaire KAYLA-7 Date KAYLA - 7 assessed: 01/10/25 Source: Developed by Drs. Davis Clark, Molly Weems, Timothy Guillen and colleagues, with an educational margie from [employer]. Physical exam (Primary Care) Vital Signs: Last Vital Signs Pulse 77 06/13/25 11:07 BP 122/76 06/13/25 11:07 Pulse Ox 98 06/13/25 11:07 BMI result Body Mass Index 31.6 Tobacco/Smoking Status: Tobacco use Status Tobacco use date assessed 01/10/25 06/13/25 11:10 Patient Tobacco Use Status Never used Tobacco 06/13/25 11:10 e-Cigarette/Vaping Use Never Used 06/13/25 11:10 Thrive Assessment: Date of Thrive Assessment Date Thrive assessed 01/10/25 06/13/25 11:10 Currently or been in a relationship where the following occur: No concerns reported Results AMB Hemoglobin A1c AMB Hemoglobin A1c 7.1 % Last Edit by Lorne Vargas CMA on 06/13/25 11: 24 Results Reviewed Results Reviewed: Laboratory Last Values Hgb A1c (Clinic) 7.1 % (4.0-6.0) H 06/13/25 11:23 Coding Level of Care Code Est Pt Level 4 (52101) Complex EM visit Add On G2211 Diagnoses Type 2 diabetes mellitus with unspecified complications E11.8 Stage 3b chronic kidney disease N18.32 Chronic kidney disease stage 3 subtype: stage 3b (GFR 30-44) Anemia of chronic illness D63.8 Stented coronary artery Z95.5 Coronary artery disease involving [place] coronary artery of [place] heart without angina pectoris I25.10 Coronary Disease-Associated Artery/Lesion type: [place] artery [place] vs. transplanted heart: [place] heart Associated angina: without angina Left lumbar radiculitis M54.16 Class 1 obesity due to excess calories with serious comorbidity and body mass index (BMI) of 32.0 to 32.9 in adult E66.09; Z68.32 Obesity classification: adult class 1 (BMI 30 - 34.9) Serious obesity comorbidity presence: with serious comorbidity Body mass index: BMI 32.0-32.9 Osteoarthritis involving multiple joints on both sides of body M15.9 Assessment & Plan Assessment & Plan (1) Type 2 diabetes mellitus with unspecified complications: Code(s): E11.8 - Type 2 diabetes mellitus with unspecified complications Category: Medical (2) Kidney disease, chronic, stage III (GFR 30-59 ml/min): Code(s): N18.30 - Chronic kidney disease, stage 3 unspecified Category: Medical Qualifiers: Chronic kidney disease stage 3 subtype: stage 3b (GFR 30-44) Qualified Code(s): N18.32 - Chronic kidney disease, stage 3b (3) Anemia of chronic illness: Code(s): D63.8 - Anemia in other chronic diseases classified elsewhere Category: Medical (4) Stented coronary artery: Code(s): Z95.5 - Presence of coronary angioplasty implant and graft Category: Surgical (5) CAD (coronary artery disease): Comment: 05/24/22 Prox LAD 70% stenosis and CHE placed, Mid LCx 70% stenosis, planned for staged PCI, AV mean gradiant 28mmhg; 03/30/2023, TAVR Dr. Dockery Code(s): I25.10 - Atherosclerotic heart disease of [place] coronary artery without angina pectoris Category: Medical Qualifiers: Coronary Disease-Associated Artery/Lesion type: [place] artery [place] vs. transplanted heart: [place] heart Associated angina: without angina Qualified Code(s): I25.10 - Atherosclerotic heart disease of [place] coronary artery without angina pectoris (6) Left lumbar radiculitis: Code(s): M54.16 - Radiculopathy, lumbar region Category: Medical (7) Obesity due to excess calories: Code(s): E66.09 - Other obesity due to excess calories Category: Medical Qualifiers: Obesity classification: adult class 1 (BMI 30 - 34.9) Serious obesity comorbidity presence: with serious comorbidity Body mass index: BMI 32.0-32.9 Qualified Code(s): E66.09 - Other obesity due to excess calories; Z68.32 - Body mass index [BMI] 32.0-32.9, adult (8) Osteoarthritis involving multiple joints on both sides of body: Code(s): M15.9 - Polyosteoarthritis, unspecified Category: Medical Plan Chief Complaint Longitudinal care appointment. History of Present Illness The patient is an 85-year-old female presenting with follow-up for kidney function concerns and management of blood pressure and diabetes. Hyperkalemia: - management by food and beverage coordinator - Noted increase in potassium levels despite dietary modifications. - Discontinued lisinopril due to elevated potassium. Hypertension: Off blood pressure medications blood pressure controlled Diabetes Mellitus: - Type 2 Diabetes, managed with Glipizide. - Recent HbA1c recorded at 7.1, improved from previous levels. - Patient follows a regimen of two tablets in the morning and one at night. Chronic Kidney Disease: - Noted kidney function fluctuating with GFR reduced from 30 to 26. - Regular monitoring ongoing. Chronic back pain flares up every now and then For that patient take oxycodone at night 30 tablets usually last her 4-5 months Weight Management: - Fluctuating weight noted, currently at 184 lbs. - Difficulty with weight stability mentioned. Medical History: - Hypertension - Type 2 Diabetes Mellitus - Chronic Kidney Disease - obesity - Back Pain Possibly Due to Disc Issues Surgical History: - Valvular Surgery Social History: - Lives an active life, recently celebrated 85th birthday. - Engaged in regular household activities and childcare for a 4-year-old. - Difficulty with ascending stairs due to leg weakness. - Struggles with weight management and dietary restrictions. Family History: - Great grandson diagnosed with kidney cancer and also has autism. Diagnostic Results: - Labs: - GFR recorded as 30 previously, now fluctuating around 26. - Potassium levels noted to be increasing. - HbA1c at 7.1. Problem List - Hyperkalemia - Hypertension - Type 2 Diabetes Mellitus - Chronic Kidney Disease - obesity - osteoarthritis knees - chronic back pain Patient Instructions - Continue monitoring blood pressure and maintain dietary restrictions to manage potassium levels. - Avoid activities that may exacerbate hernia symptoms, such as going down to the cellar. - Follow current medication regimen as prescribed for diabetes management. - Enjoy an active lifestyle and engage safely in daily activities. - Seek medical attention for any significant changes in health status. Orders: Orders AMB Hemoglobin A1c Today Z13.9 - Encounter for screening, unspecified Medications: Refilled oxycodone 5 mg PO BID PRN 60 tabs 0RF pain 30 days
--- OUTSIDE RECORDS SUMMARY | 2025-06-13 11:11 | XMS_ITS | Encounter Summary ---
Author Organization [facility], Address [address] [place] [address] Phone Care Team Providers Care Business Development Specialist Name Role Phone León Cannon MD Primary Care Provider [phone] Encounter Details Date Type Department Care Team (Late st Contact Info) Description 11/20/2020 Orders Only [facility] - [address] [facility] [facility] [address] [place] [address] Judy Em MD Chronic kidney disease stage [...] (HCC) documented in this encounter Care Teams Business Development Specialist Relationship Specialty Start Date End Date León Cannon MD 1962 [facility] [place] [id number] PCP - General 09/03/19 documented as of this encounter
== END 2025-06-13 11:24 | disposition home or self-care (01) ==
LOC: HO.HMCC 11:01
PROVIDERS: PCP Internal Medicine; Visit Provider Internal Medicine
DX: E11.8 Type 2 diabetes mellitus with unspecified complications (principal); N18.32 Chronic kidney disease, stage 3b; D63.8 Anemia in other chronic diseases classified elsewhere; Z95.5 Presence of coronary angioplasty implant and graft; I25.10 Atherosclerotic heart disease of native coronary artery without angina pectoris; M54.16 Radiculopathy, lumbar region; E66.09 Other obesity due to excess calories; Z68.32 Body mass index [BMI] 32.0-32.9, adult; M15.9 Polyosteoarthritis, unspecified; Z13.9 Encounter for screening, unspecified

== ENCOUNTER → 2025-06-13 11:00 | Outpatient (BNVA) | payer MEDICARE, SELFPAY | PROVIDERS: PCP Internal Medicine; Visit Provider Internal Medicine | DX: E11.8 Type 2 diabetes mellitus with unspecified complications (principal); M15.9 Polyosteoarthritis, unspecified; E66.09 Other obesity due to excess calories; Z68.32 Body mass index [BMI] 32.0-32.9, adult; N18.32 Chronic kidney disease, stage 3b; D63.8 Anemia in other chronic diseases classified elsewhere; I25.10 Atherosclerotic heart disease of native coronary artery without angina pectoris; Z95.5 Presence of coronary angioplasty implant and graft; Z71.3 Dietary counseling and surveillance | CPT/HCPCS: 83036; 99212 ==

== ENCOUNTER 2025-09-05 13:34 | Outpatient (REF) | payer MEDICARE, SELFPAY ==
[2025-09-05 16:35] LABS: Anion Gap 12 (12-20); Blood Urea Nitrogen 35 mg/dL (9-16); Calcium 9.0 mg/dL (8.4-10.2); Carbon Dioxide 23 mmol/L (22-29); Chloride 111 mmol/L (96-108); Estimated Glomerular Filt Rate 27; Potassium 5.2 mmol/L (3.3-5.1); Sodium 141 mmol/L (135-145)
== END 2025-09-05 13:35 | disposition home or self-care (01) ==
LOC: HO.HMGCLDS 13:34
PROVIDERS: PCP Internal Medicine; Visit Provider Internal Medicine Hypertension Specialist
DX: N18.32 Chronic kidney disease, stage 3b (principal); E87.5 Hyperkalemia
CPT/HCPCS: 36415; 80048

== ENCOUNTER 2025-09-08 11:39 | Outpatient (AMB) | payer MEDICARE, SELFPAY ==
[2025-09-08 11:44] VITALS: BP 160/72; PULSE 73; O2SAT 94; BMI 31.9
--- NOTE | 2025-09-08 11:44 | HO.NEPHOV ---
Vital Signs 09/08/25 11:44 09/08/25 12:01 Height 5 ft 4 in Weight 186 lb BMI 31.9 BP 160/72 H 136/70 Blood Pressure Location Lt brachial Lt brachial Position Sitting Sitting Pulse 73 Pulse Source Pulse Oximeter Pulse Oximetry (%) 94 Oxygen Delivery Method Room Air Intake Visit Reasons: 3mon f/u w/labs Valve Pipe Irrigator Required: No Accompanied by: Daughter Allergies Penicillins (PCN) Allergy (Mild, Verified 09/08/25 11:46) RASH Medication List - Last Reconciled 09/08/25 by Claudio Blakely MD [updraft machine As directed] albuterol sulfate 0.63 mg (3 mL) inhalation QID PRN albuterol sulfate 90 mcg/actuation 1 inh inhalation QID PRN 30 days allopurinol 100 mg PO DAILY aspirin 81 mg PO DAILY atenolol 50 mg PO DAILY atorvastatin 40 mg PO DAILY calcitriol 0.25 mcg PO 3XW ferrous sulfate 325 mg PO DAILY furosemide 20 mg PO DAILY glipizide Take 2 tabs in the am and 1 tab in the pm orally; oxycodone 5 mg PO .qd PRN 30 days sodium bicarbonate 650 mg PO BID sodium zirconium cyclosilicate (Lokelma) 5 grams PO .2 times a week 30 days HPI Comments Details: Lorena Cloud is an 83-year-old female with a history of hypertension, diabetes, hyperlipidemia, first-degree AV block, CAD status post 2 cardiac catheterization with stent placements, severe aortic stenosis s/p TAVR March 2023 She has stage IIIB CKD. Her baseline serum creatinine has been around 1.4-1.7 mg/dL. She was being followed by Dr. Moshe Em. 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 From renal standpoint she has no specific complaints. She had missed readings high salt diet. She does not take any NSAIDs or Ortez 2 inhibitors. She continues have shortness of breath on exertion. No change in weight. She has leg edema. No urinary symptoms. 11/20/23 ; Tolerating Lasix 20 mg QD ;Lost 5 lbs ;No dyspnea 02/19/24 : c/o Cough x 3 week;CXR normal;Waiting for ECHO 04/08/2024. Overall feels better. No further cough. Accompanied by daughter. 07/11/24 ;Here for followup; She has no new issues; On Lisinopril 5 mg daily ;No dyspnea at rest ;No edema 11/11/24 ;Recently had resp tract infection ; Treated with antibiotics ;K was 5.9; Kayexalate was called in ;Yet to take it 12/19/24 ;Overall doing OK 03/04/25: No compliants today ;Ran out of Lokelma 5 days ago 06/09/25: Doing well. Takes lokelma only once a week 09/08/25 The patient is an 85-year-old female presenting with chronic kidney disease and hyperkalemia. Her potassium levels have been consistently high, ranging from 5.2 to 5.4 mmol/L, with a target of less than 5.2 mmol/L. Dietary intake includes high-potassium foods such as tomato sauce, and she has been advised to avoid bananas and oranges. The patient's kidney function has remained stable over the past six months, with an estimated glomerular filtration rate (eGFR) between 26% and 30%. She was previously on lisinopril, which was discontinued due to its potential to increase potassium levels. She is currently taking Lokelma twice a week to manage her potassium levels. The patient also has a history of hypertension, with recent blood pressure readings of 160/72 mmHg and 140/72 mmHg at home. Her blood sugar levels fluctuate, which may contribute to elevated potassium levels. 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, managed as type 2 Surgical History Status post transcatheter aortic valve replacement (TAVR) using bioprosthesis Hx of cardiac cath History of tonsillectomy History of left cataract surgery History of hysterectomy History of cholecystectomy Family History Father Diabetes Hypertension Mother Diabetes Breast cancer Colon cancer Social History (Reviewed 09/08/25 @ 11:46 by RAJ Kamara Housing: House Alcohol intake: current Alcohol intake frequency: holidays/special occasions only Patient Tobacco Use Status: Never used Tobacco e-Cigarette/Vaping Use: Never Used service: No Current occupational status: retired Cognitive needs: No Hearing needs: No Vision needs: No Physical Exam Vital Signs: Last Vital Signs Pulse 73 09/08/25 11:44 BP 136/70 09/08/25 12:01 Pulse Ox 94 09/08/25 11:44 Oxygen Delivery Method Room Air 09/08/25 11:44 BMI result Body Mass Index 31.9 Const General: comfortable Nutritional Appearance: well nourished Orientation/consciousness: patient oriented x3 HEENT Head: No normal to inspection Mouth: moist mucous membranes Neck Neck: Yes supple and Yes no JVD Resp Auscultation: clear to auscultation bilaterally and no rales Cardio Jugular venous distension: no JVD Palpation: no palpable S3 and no palpable S4 Heart sounds: no rubs GI Palpation (GI): Soft to palpation and nontender Percussion: No Fluid wave present General: Yes no CVA tenderness Back/Spine/Pelvis Back: no CVA tenderness Skin General skin exam: no rashes or lesions noted Neuro General: patient oriented x3 Extrem General: Yes no pedal edema and No clubbing Results Reviewed Nephrology Results: Sodium, (135-145) 141 mmol/L 09/05/25 Potassium, (3.3-5.1) 5.2 mmol/L H 09/05/25 Chloride, (96-108) 111 mmol/L H 09/05/25 Carbon Dioxide, (22-29) 23 mmol/L 09/05/25 BUN, (9-16) 35 mg/dL H 09/05/25 Creatinine, (0.5-1.4) 1.76 mg/dL H 09/05/25 Calcium, (8.4-10.2) 9.0 mg/dL 09/05/25 Renal US 04/05/24 Assessment & Plan Assessment & Plan (1) Kidney disease, chronic, stage III (GFR 30-59 ml/min): Code(s): N18.30 - Chronic kidney disease, stage 3 unspecified Category: Medical Qualifiers: Chronic kidney disease stage 3 subtype: stage 3b (GFR 30-44) Qualified Code(s): N18.32 - Chronic kidney disease, stage 3b Plan: . Sherry has stable CKD stage IIIB unit setting of longstanding hypertension diabetes mellitus obesity and coronary disease. In the past she did not have any significant proteinuria. She probably does not have overt diabetic nephropathy. Creatinine is close to baseline. Goal is to slow the progression of renal disease. Maintain blood pressure less than 130/80 Maintain hemoglobin A1c less than 7% Continue with Marcio inhibitors for renal protection. She might benefit from SGLT 2 inhibitors. h/o Mild bump in creatinine Discontinued Lisinopril 5 mg due to worsening renal function and hyperkalemia (06/09/25) . (2) Hyperkalemia: Code(s): E87.5 - Hyperkalemia Category: Medical Plan: stay on Low K diet Resume Lokelma 5 gm PO 2 x week (3) Essential hypertension: Code(s): I10 - Essential (primary) hypertension Category: Medical Plan: . Blood pressure is acceptable. Encouraged to monitor blood pressure at home and if systolic blood pressure is elevated we can readdress this Discussed weight loss. She should stay on low-sodium diet (4) Anemia: Code(s): D64.9 - Anemia, unspecified Category: Medical Qualifiers: Anemia type: due to chronic kidney disease Chronic kidney disease stage 3 subtype: stage 3b (GFR 30-44) Plan: . 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 No absolute indication for erythropoietin injections. Shall follow hemoglobin closely . (5) CAD (coronary artery disease): Comment: 05/24/22 Prox LAD 70% stenosis and MIL placed, Mid LCx 70% stenosis, planned for staged PCI, AV mean gradiant 28mmhg; 03/30/2023, TAVR Dr. Dockery Code(s): I25.10 - Atherosclerotic heart disease of [place] coronary artery without angina pectoris Category: Medical Qualifiers: Associated angina: without angina Coronary Disease-Associated Artery/Lesion type: [place] artery [place] vs. transplanted heart: [place] heart Qualified Code(s): I25.10 - Atherosclerotic heart disease of [place] coronary artery without angina pectoris Plan: . Echocardiogram unremarkable As per Cardiology . (6) Secondary hyperparathyroidism: Code(s): N25.81 - Secondary hyperparathyroidism of renal origin Category: Medical Plan: . on Calcitriol 0.25 mcg 3 x week PTH was 187;shall follow . Orders: Orders Basic Metabolic Panel 3 Months I10 - Essential (primary) hypertension Complete Blood Count no Diff 3 Months I10 - Essential (primary) hypertension Medications: Refilled sodium zirconium cyclosilicate (Lokelma) Can mix with a glass of water 5 grams PO .2 times a week 11 ea 4RF Hyperkalemia 30 days Coding Level of Care Code Est Pt Level 4 (95202) Diagnoses Stage 3b chronic kidney disease N18.32 Chronic kidney disease stage 3 subtype: stage 3b (GFR 30-44) Hyperkalemia E87.5 Essential hypertension I10 Anemia D64.9 Anemia type: due to chronic kidney disease Chronic kidney disease stage 3 subtype: stage 3b (GFR 30-44) Coronary artery disease involving [place] coronary artery of [place] heart without angina pectoris I25.10 Associated angina: without angina Coronary Disease-Associated Artery/Lesion type: [place] artery [place] vs. transplanted heart: [place] heart Secondary hyperparathyroidism N25.81
[2025-09-08 12:01] VITALS: BP 136/70
--- OUTSIDE RECORDS SUMMARY | 2025-09-08 14:05 | XMS_ITS | Clinical Summary ---
Author Organization [facility], Address [address] [place] [address] [place] [phone] Phone Care Team Providers Care Manager Account Management Name Role Phone León Cannon MD Primary Care Provider [phone] Allergies Active Allergy Reactions Criticality Noted Date [...] 70 01/23/2023 10:34 AM EDT Temperature 36.7 C (98 F) 11/28/2019 10:23 AM EST Respiratory Rate 14 [...] Visual Foot Exam 11/22/2019 Influenza Vaccine (#1) 2025 9, 08/22/2018, 08/08/2018, Additional history exists Pneumococcal Vaccine: Peds (0 to 5 Years) and At-Risk Patients (6 to 49 Years) Discontinued 01/12/2015, 10/10/2005 Hepatitis B Vaccine Aged Out No longe r eligible based on patient's age to complete this topic Insurance [facility] [place] [place] [id number] [place] [id number] Care Teams Manager Account Management Relationship Specialty Start Date End Date León Cannon MD 1962 [facility] [place] [id number] PCP - General 09/03/19
--- OUTSIDE RECORDS SUMMARY | 2025-09-08 14:05 | XMS_ITS | Encounter Summary ---
Author Organization [facility], Address [address] [place] [address] Phone Care Team Providers Care Analyst Business Analysis Name Role Phone León Cannon MD Primary Care Provider [phone] Encounter Details Date Type Department Care Team (Late st Contact Info) Description 05/29/2020 Orders Only [facility] - [address] [facility] [address] [place] [address] Judy Em MD Chronic kidney disease stage [...] (HCC) documented in this encounter Care Teams Analyst Business Analysis Relationship Specialty Start Date End Date León Cannon MD [address] [facility] [place] [address] PCP - General 09/03/19 documented as of this encounter
--- OUTSIDE RECORDS SUMMARY | 2025-09-08 14:05 | XMS_ITS | Encounter Summary ---
Author Organization [facility], Address [address] [place] [address] Phone Care Team Providers Care Speech And Drama Teacher Name Role Phone León Cannon MD Primary Care Provider Encounter Details Date Type Department Care Team (Late st Contact Info) Description 01/11/2023 Documentation Only [facility], [facility] [place] [address] [id number] León Cannon MD 1962 [place], [place] Social History Tobacco Use Types Packs/Day [...] on filedocumented in this encounter Care Teams Speech And Drama Teacher Relationship Specialty Start Date End Date León Cannon MD 1962 [place], [place] PCP - General 09/03/19 documented as of this encounter
--- OUTSIDE RECORDS SUMMARY | 2025-09-08 14:05 | XMS_ITS | Encounter Summary ---
Author Organization [facility], Address [address] [place] [address] Phone Care Team Providers Care Hand Molder Name Role Phone León Cannon MD Primary Care Provider [phone] Encounter Details Date Type Department Care Team (Late st Contact Info) Description 11/20/2020 Orders Only [facility] - [place] [address] [place] [facility] [address] [place] [address] Judy Em MD Chronic kidney disease stage [...] (HCC) documented in this encounter Care Teams Hand Molder Relationship Specialty Start Date End Date León Cannon MD 1962 [facility] [place] [address] PCP - General 09/03/19 documented as of this encounter
== END 2025-09-08 12:04 | disposition home or self-care (01) ==
LOC: HO.HKA 11:40
PROVIDERS: PCP Internal Medicine; Visit Provider Internal Medicine Hypertension Specialist
DX: N18.32 Chronic kidney disease, stage 3b (principal); E87.5 Hyperkalemia; I10 Essential (primary) hypertension; D64.9 Anemia, unspecified; I25.10 Atherosclerotic heart disease of native coronary artery without angina pectoris; N25.81 Secondary hyperparathyroidism of renal origin
CPT/HCPCS: 99214

== ENCOUNTER → 2025-09-08 11:39 | Outpatient (BNVA) | payer MEDICARE, SELFPAY | PROVIDERS: PCP Internal Medicine; Visit Provider Internal Medicine Hypertension Specialist | DX: N18.32 Chronic kidney disease, stage 3b (principal); D63.1 Anemia in chronic kidney disease; I12.9 Hypertensive chronic kidney disease with stage 1 through stage 4 chronic kidney disease, or unspecified chronic kidney disease; E11.22 Type 2 diabetes mellitus with diabetic chronic kidney disease; E87.5 Hyperkalemia; I25.10 Atherosclerotic heart disease of native coronary artery without angina pectoris; N25.81 Secondary hyperparathyroidism of renal origin | CPT/HCPCS: 99212 ==

== ENCOUNTER 2025-10-14 11:03 | Outpatient (AMB) | payer MEDICARE, SELFPAY ==
[2025-10-14 11:12] VITALS: BP 132/72; PULSE 77; O2SAT 94; BMI 31.9
--- NOTE | 2025-10-14 11:12 | A.OFFPC_ITS ---
Vital Signs 10/14/25 11:12 Height 5 ft 4 in Weight 186 lb BMI 31.9 BP 132/72 Blood Pressure Location Lt brachial Position Sitting Pulse 77 Pulse Source Pulse Oximeter Pulse Oximetry (%) 94 Intake Visit Reasons: 4 months f/up Allergies Penicillins (PCN) Allergy (Mild, Verified 10/14/25 11:14) RASH Medication List - Last Reconciled 10/14/25 by León Cannon MD [updraft machine As directed] albuterol sulfate 0.63 mg (3 mL) inhalation QID PRN albuterol sulfate 90 mcg/actuation 1 inh inhalation QID PRN 30 days allopurinol 100 mg PO DAILY aspirin 81 mg PO DAILY atenolol 50 mg PO DAILY atorvastatin 40 mg PO DAILY calcitriol 0.25 mcg PO 3XW ferrous sulfate 325 mg PO DAILY furosemide 20 mg PO DAILY glipizide Take 2 tabs in the am and 1 tab in the pm orally; oxycodone 5 mg PO .qd PRN 30 days sodium bicarbonate 650 mg PO BID sodium zirconium cyclosilicate (Lokelma) 5 grams PO .2 times a week 30 days Tobacco use date assessed: 01/10/25 Fall risk assessment: No Falls in past year Last assessed Fall Risk: 10/14/25 Dental Screening Dental Screen Date: 01/10/25 HPI 4 months f/up HPI Details History of Present Illness The patient is an 85 year old female presenting for a 3-month follow-up for medication refill. Chronic Back Pain: - The patient reports a bad day with víctor k pain after decorating a tree. - She reports that some days her back pa in is very bad, but she does not want to undergo an operation at her age. - The pain is exacerbated by physical ov erexertion. - She has difficulty with mail order ph[facility] for her pain medication, as it is often out of stock, so she uses a local pharmacy. - She takes one tablet of oxycodone zechariah y for pain. Knee Pain: - The patient reports difficulty with st airs due to her knees. - She states she can go down but has dif ficulty coming up, which prevents her from doing her own laundry as the laundry room is downstairs. Hyperkalemia: - Laboratory tests from August showed continued high potassium levels. - She is under the care of a nephrologis t, Dr. Mccabe, who prescribed a medication for the hyperkalemia. - She has a follow-up appointment with ellis david marzipan maker in two months and is scheduled for repeat blood tests in October before that visit. Cough: - The patient has had a cough for about two weeks, which is non-productive. Medical History: - Hyperuricemia - Hypertension, - Hyperlipidemia, - Kidney disease, managed by nephrology - Diabetes mellitus Medications: - Allopurinol for elevated uric acid - Atenolol 50 mg for hypertension - Atorvastatin 40 mg for hyperlipidemia - Furosemide - Aspirin - Sodium bicarbonate - Glipizide for diabetes - Unspecified powder for hyperkalemia - Oxycodone, 1 tablet daily, for chronic pain Social History: - Functional Status: The patient reports feeling bored and tries to stay active by reading and walking a little, though she is afraid to walk outside. - The patient has difficulty going down stairs and cannot come back up, requiring her [id number] to do the laundry. - Her son modified a bedroom closet into a shower so she does not have to climb into a tub. - Living Situation: The patient lives in her own house with her son and [id number]. Problem List - Chronic back pain - Osteoarthritis of knee - Hyperkalemia - Hyperuricemia - Hypertension - Hyperlipidemia - Type 2 Diabetes Mellitus - Cough - Preventative care: Medication manageme nt and refill Plan - The patient will sign a pain contract for the ongoing use of oxycodone for chronic pain. - As part of the pain contract, she agre es to use one specific pharmacy and not obtain this medication from other providers. - The oxycodone prescription will be wri tten for two times a day, but the patient is instructed to continue taking only one tablet daily, which will provide a 60-day supply. - The patient will return for follow-up every other month for oxycodone refills. - Pill counts may be requested, requirin g the patient to bring her medication bottle within 48 hours. - Continue management with her nephrolog ist for hyperkalemia. - Proceed with scheduled blood tests nex t month before her nephrology appointment. - Counseled the patient on activity limi tations to manage her pain, such as avoiding overexertion and having someone else take down her tree. - Advised the patient to discuss her nee d for assistance with household tasks, such as laundry, with her family. Review of Systems - General: No fever no chills - Neurological: No headaches no dizziness - Ear nose throat: No sore throat no hearing difficulty no ear pain - Cardiovascular: No syncope, no chest pain, no palpitations - Gastrointestinal: No nausea vomiting or diarrhea - Endocrine: No polyuria polydipsia no heat intolerance - Genitourinary: No dysuria , no blood in urine Physical Exam General: No acute distress HEENT: No acute findings Neck: Supple Respiratory system: Cough for about two weeks, no audible wheeze Cardiovascular: S1-S2 regular in rate and rhythm Gastrointestinal: No pain Extremities: No new findings ALTERATION INSPECTOR: Alert awake oriented x3 motor intact Skin: Normal turgor [facility] Medical History Encounter for general adult medical examination with abnormal findings Pre-op evaluation Chest discomfort Viral syndrome Fall Shortness of breath Hip pain, right Right leg pain Tracheobronchitis Hypertension, essential Spondylosis of lumbosacral spine with radiculopathy Elevated uric acid in blood Anxiety, generalized 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, managed as type 2 Surgical History Status post transcatheter aortic valve replacement (TAVR) using bioprosthesis Hx of cardiac cath History of tonsillectomy History of left cataract surgery History of hysterectomy History of cholecystectomy Family History Father Diabetes Hypertension Mother Diabetes Breast cancer Colon cancer Social History Housing: House Alcohol intake: current Alcohol intake frequency: holidays/special occasions only Patient Tobacco Use Status: Never used Tobacco e-Cigarette/Vaping Use: Never Used service: No Current occupational status: retired Cognitive needs: No Hearing needs: No Vision needs: No Questionnaire Thrive Questionnaire Date Thrive assessed: 01/10/25 I am a: Patient What is your living situation today?: I choose not to answer this question Within the past 12 months, did the food you bought not last and you didn't have the money to get more?: Never true Within the past 12 months, did you worry whether your food would run out before you got money to buy more?: Never true Do you have trouble paying for medicines?: No Do you have trouble getting transportation to medical appointments?: No Do you have trouble paying your heating and electricity bill?: No Do you have trouble taking care of your child, family member or friend?: No Do you have trouble with day-to-day activities such as bathing, preparing meals, shopping, managing finances, etc.?: No Are you currently unemployed and looking for a job?: No Are you interested in more education?: No Please select the resources that you would like help with: None Currently or been in a relationship where the following occur: No concerns reported THRIVE Score: 0 KAYLA-7 AMB Questionnaire KAYLA-7 Date KAYLA - 7 assessed: 01/10/25 Source: Developed by Drs. Davis Clark, Molly Weems, Timothy Guillen and colleagues, with an educational margie from [employer]. Physical exam (Primary Care) Vital Signs: Last Vital Signs Pulse 77 10/14/25 11:12 BP 132/72 10/14/25 11:12 Pulse Ox 94 10/14/25 11:12 BMI result Body Mass Index 31.9 Tobacco/Smoking Status: Tobacco use Status Tobacco use date assessed 01/10/25 10/14/25 11:14 Patient Tobacco Use Status Never used Tobacco 10/14/25 11:14 e-Cigarette/Vaping Use Never Used 10/14/25 11:14 Thrive Assessment: Date of Thrive Assessment Date Thrive assessed 01/10/25 10/14/25 11:14 Currently or been in a relationship where the following occur: No concerns reported Coding Level of Care Code Est Pt Level 4 (39710) Add On Problem Visit Only Diagnoses Type 2 diabetes mellitus with unspecified complications E11.8 Pain management contract agreement Z02.89 Osteoarthritis involving multiple joints on both sides of body M15.9 Stage 3b chronic kidney disease N18.32 Chronic kidney disease stage 3 subtype: stage 3b (GFR 30-44) Hyperkalemia E87.5 Essential hypertension I10 Coronary artery disease involving [place] coronary artery of [place] heart without angina pectoris I25.10 Coronary Disease-Associated Artery/Lesion type: [place] artery [place] vs. transplanted heart: [place] heart Associated angina: without angina Secondary hyperparathyroidism N25.81 Left lumbar radiculitis M54.16 Anemia of chronic illness D63.8 Stented coronary artery Z95.5 Class 1 obesity due to excess calories with serious comorbidity and body mass index (BMI) of 32.0 to 32.9 in adult E66.09; Z68.32 Obesity classification: adult class 1 (BMI 30 - 34.9) Serious obesity comorbidity presence: with serious comorbidity Body mass index: BMI 32.0-32.9 Assessment & Plan Assessment & Plan (1) Type 2 diabetes mellitus with unspecified complications: Code(s): E11.8 - Type 2 diabetes mellitus with unspecified complications Category: Medical (2) Pain management contract agreement: Code(s): Z02.89 - Encounter for other administrative examinations Category: Medical (3) Osteoarthritis involving multiple joints on both sides of body: Code(s): M15.9 - Polyosteoarthritis, unspecified Category: Medical (4) Kidney disease, chronic, stage III (GFR 30-59 ml/min): Code(s): N18.30 - Chronic kidney disease, stage 3 unspecified Category: Medical Qualifiers: Chronic kidney disease stage 3 subtype: stage 3b (GFR 30-44) Qualified Code(s): N18.32 - Chronic kidney disease, stage 3b Plan: . Sherry has stable CKD stage IIIB unit setting of longstanding hypertension diabetes mellitus obesity and coronary disease. In the past she did not have any significant proteinuria. She probably does not have overt diabetic nephropathy. Creatinine is close to baseline. Goal is to slow the progression of renal disease. Maintain blood pressure less than 130/80 Maintain hemoglobin A1c less than 7% Continue with Marcio inhibitors for renal protection. She might benefit from SGLT 2 inhibitors. h/o Mild bump in creatinine Discontinued Lisinopril 5 mg due to worsening renal function and hyperkalemia (06/09/25) . (5) Hyperkalemia: Code(s): E87.5 - Hyperkalemia Category: Medical Plan: stay on Low K diet Resume Lokelma 5 gm PO 2 x week (6) Essential hypertension: Code(s): I10 - Essential (primary) hypertension Category: Medical Plan: . Blood pressure is acceptable. Encouraged to monitor blood pressure at home and if systolic blood pressure is elevated we can readdress this Discussed weight loss. She should stay on low-sodium diet (7) CAD (coronary artery disease): Comment: 05/24/22 Prox LAD 70% stenosis and MIL placed, Mid LCx 70% stenosis, planned for staged PCI, AV mean gradiant 28mmhg; 03/30/2023, TAVR Dr. Dockery Code(s): I25.10 - Atherosclerotic heart disease of [place] coronary artery without angina pectoris Category: Medical Qualifiers: Coronary Disease-Associated Artery/Lesion type: [place] artery [place] vs. transplanted heart: [place] heart Associated angina: without angina Qualified Code(s): I25.10 - Atherosclerotic heart disease of [place] coronary artery without angina pectoris Plan: . Echocardiogram unremarkable As per Cardiology . (8) Secondary hyperparathyroidism: Code(s): N25.81 - Secondary hyperparathyroidism of renal origin Category: Medical Plan: . on Calcitriol 0.25 mcg 3 x week PTH was 187;shall follow . (9) Left lumbar radiculitis: Code(s): M54.16 - Radiculopathy, lumbar region Category: Medical (10) Anemia of chronic illness: Code(s): D63.8 - Anemia in other chronic diseases classified elsewhere Category: Medical (11) Stented coronary artery: Code(s): Z95.5 - Presence of coronary angioplasty implant and graft Category: Surgical (12) Obesity due to excess calories: Code(s): E66.09 - Other obesity due to excess calories Category: Medical Qualifiers: Obesity classification: adult class 1 (BMI 30 - 34.9) Serious obesity comorbidity presence: with serious comorbidity Body mass index: BMI 32.0-32.9 Qualified Code(s): E66.09 - Other obesity due to excess calories; Z68.32 - Body mass index [BMI] 32.0-32.9, adult Plan Problem List - Chronic back pain - Osteoarthritis of knee - Hyperkalemia - Hyperuricemia - Hypertension - Hyperlipidemia - Type 2 Diabetes Mellitus - Cough - Preventative care: Medication management and refill Plan - The patient will sign a pain contract for the ongoing use of oxycodone for chronic pain. - As part of the pain contract, she agrees to use one specific pharmacy and not obtain this medication from other providers. - The oxycodone prescription will be written for two times a day, but the patient is instructed to continue taking only one tablet daily, which will provide a 60-day supply. - The patient will return for follow-up every other month for oxycodone refills. - Pill counts may be requested, requiring the patient to bring her medication bottle within 48 hours. - Continue management with her marzipan maker for hyperkalemia. - Proceed with scheduled blood tests next month before her nephrology appointment. - Counseled the patient on activity limitations to manage her pain, such as avoiding overexertion and having someone else take down her tree. - Advised the patient to discuss her need for assistance with household tasks, such as laundry, with her family. Medications: Changed From oxycodone 5 mg PO .qd 30 days PRN 14 tabs 0RF pain M54.16 - Radiculopathy, lumbar region To oxycodone 5 mg PO BID PRN 60 tabs 0RF pain 30 days M54.16 - Radiculopathy, lumbar region
== END 2025-10-14 11:55 | disposition home or self-care (01) ==
LOC: HO.HMCC 11:04
PROVIDERS: PCP Internal Medicine; Visit Provider Internal Medicine
DX: N18.32 Chronic kidney disease, stage 3b (principal); E11.8 Type 2 diabetes mellitus with unspecified complications; Z02.89 Encounter for other administrative examinations; M15.9 Polyosteoarthritis, unspecified; E87.5 Hyperkalemia; I10 Essential (primary) hypertension; I25.10 Atherosclerotic heart disease of native coronary artery without angina pectoris; N25.81 Secondary hyperparathyroidism of renal origin; M54.16 Radiculopathy, lumbar region; Z95.5 Presence of coronary angioplasty implant and graft; D63.8 Anemia in other chronic diseases classified elsewhere; E66.09 Other obesity due to excess calories; Z68.32 Body mass index [BMI] 32.0-32.9, adult

== ENCOUNTER → 2025-10-14 11:03 | Outpatient (BNVA) | payer MEDICARE, SELFPAY | PROVIDERS: PCP Internal Medicine; Visit Provider Internal Medicine | DX: Z02.89 Encounter for other administrative examinations (principal); I10 Essential (primary) hypertension; N18.32 Chronic kidney disease, stage 3b; M15.9 Polyosteoarthritis, unspecified; E87.5 Hyperkalemia; N25.81 Secondary hyperparathyroidism of renal origin; M54.16 Radiculopathy, lumbar region; D63.8 Anemia in other chronic diseases classified elsewhere; Z95.5 Presence of coronary angioplasty implant and graft; E66.09 Other obesity due to excess calories; Z68.32 Body mass index [BMI] 32.0-32.9, adult; E11.8 Type 2 diabetes mellitus with unspecified complications; G89.29 Other chronic pain | CPT/HCPCS: 99212 ==